=== PATIENT | female | born 1965 | race Caucasian/White ===

== ENCOUNTER → 2020-06-12 | Outpatient (CLI) | payer BC ==
--- NOTE | 2020-06-12 08:27 | CT ---
EXAMINATION TYPE: CT sinus wo con DATE OF EXAM: 06/12/2020 COMPARISON: None HISTORY: 54-year-old female GJ3 2.9, Chronic sinusitis CT DLP: 587.50 mGycm Automated exposure control for dose reduction was used. TECHNIQUE: Noncontrast axial views of the paranasal sinuses were obtained. Coronal reconstructions pe rformed. FINDINGS: PARANASAL SINUSES: Trace mucosal thickening anterior ethmoid air cells. Polyps or mucous retention cyst along the floors of the maxillary sinuses measuring up to 2.2 cm on t he right and 1.9 cm on the left. Frontal and sphenoid sinuses are well pneumatized. There is no air-fluid level. Reactive sravanthi- osteogenesis is not seen. There is no destruction of the osseous musa of the paranasal sinuses. THE NASAL CAVITY: The osteomeatal complexes are patent. Rightward nasal septal deviation. The imaged brain and orbits show no gross abnormality. The visualized mastoid air cells and middle ear cavities are well pneumatized. Reformatted images confirm above findings. IMPRESSION: 1. Polyps or mucosal retention cysts along the floors of the maxillary sinuses measuring up to 2.2 cm . 2. Trace mucosal thickening anterior ethmoid air cells. 3. Rightward nasal septal deviation.
== END | disposition home or self-care (01) ==
LOC: RADCTMAIN 07:00
PROVIDERS: ATTEND Otolaryngology
DX: J34.2 Deviated nasal septum (principal); J32.9 Chronic sinusitis, unspecified
CPT/HCPCS: 70486

== ENCOUNTER → 2020-07-25 | Outpatient (CLI) | payer BC ==
--- NOTE | 2020-07-26 08:28 | MM ---
Reason for exam: screening (asymptomatic). Last mammogram was performed 3 years and 8 months ago. History: Patient is postmenopausal. Pre-pectoral silicone gel implants in both breasts, 2004. Took hormonal contraceptives for 5 years. Took unspecified hormones for 10 years. Physical Findings: A clinical breast exam by your physician is recommended on an annual basis and results should be correlated with mammographic findings. MG 3D Screen Mammo Imp/Cad Bilateral CC, MLO, and ID view(s) were taken. Prior study comparison: November 14, 2016, mammogram, performed at [place]. Focal asymmetry right lower inner quadrant, new. Bilateral breast prothesis. This finding is changed when compared with previous exams. ASSESSMENT: Incomplete: need additional imaging evaluation, BI-RAD 0 RECOMMENDATION: Special view mammogram of the right breast. If lesion persists on supplemental views, image directed ultrasound is recommended. [facility] will attempt to contact patient to return for supplemental views and ultrasound if indicated.
== END | disposition home or self-care (01) ==
LOC: RADMAMWWP 07:03
PROVIDERS: ATTEND Family Medicine
DX: Z12.31 Encounter for screening mammogram for malignant neoplasm of breast (principal)
CPT/HCPCS: 77063; 77067

== ENCOUNTER → 2020-07-27 | Outpatient (CLI) | payer BC ==
--- NOTE | 2020-07-27 09:53 | MM ---
Reason for exam: additional evaluation requested from abnormal screening. Last mammogram was performed less than 1 month ago. History: Patient is postmenopausal. Pre-pectoral silicone gel implants in both breasts, 2004. Took hormonal contraceptives for 5 years. Took unspecified hormones for 10 years. Physical Findings: Nurse did not find any significant physical abnormalities on exam. MG 3D Work Up W/Cad W/Imp RT Spot compression CC, spot compression MLO, and LM view(s) were taken of the right breast. Prior study comparison: July 25, 2020, bilateral MG 3d screen mammo imp/cad. November 14, 2016, mammogram, performed at [facility]. Focal asymmetry right breast 5 o'clock 5cm from nipple measuring 6.4mm. These results were verbally communicated with the patient and result sheet given to the patient on 07/27/20. ASSESSMENT: Incomplete: need additional imaging evaluation, BI-RAD 0 RECOMMENDATION: Ultrasound of the right breast.
--- NOTE | 2020-07-27 09:56 | USB ---
Reason for exam: additional evaluation requested from abnormal screening. History: Patient is postmenopausal. Pre-pectoral silicone gel implants in both breasts, 2004. Took hormonal contraceptives for 5 years. Took unspecified hormones for 10 years. US Breast Workup Limited RT Right limited breast ultrasound including focal area of concern, retroareolar and axilla demonstrates a 7 x 3 x 6mm irregular, solid, hypoechoic lesion at 5 o'clock. These results were verbally communicated with the patient and result sheet given to the patient on 07/27/20. ASSESSMENT: Suspicious, BI-RAD 4 RECOMMENDATION: Ultrasound core biopsy of the right breast. Called Dr. Monroy's office with mammographic findings and has scheduled an appointment for the patient for 08/16/20 at 9:[address] Sims. Biopsy scheduled for 08/09/20 at 12:00. PRELIMINARY REPORT CALLED AND FAXED TO DR. SIMS ON 07/27/20.
== END | disposition home or self-care (01) ==
LOC: RADMAMWWP 06:53
PROVIDERS: ATTEND Family Medicine
DX: R92.8 Other abnormal and inconclusive findings on diagnostic imaging of breast (principal)
CPT/HCPCS: 77061; 77065

== ENCOUNTER → 2020-08-09 | Day surgery (SDC) | payer BC ==
[2020-08-09 12:16] VITALS: BP 138/79; PULSE 74; RESP 16; TEMP 97.6
--- NOTE | 2020-08-09 13:55 | USB ---
EXAMINATION TYPE: US discontinued breast core RT DATE OF EXAM: 08/09/2020 HISTORY: R92.8, ABN MAMM Comparison: Mammography 07/27/2020 and ultrasound from the same day Patient presented for ultrasound-guided core biopsy of the right breast however at real-time imaging the area of interest was poorly visualized and was directly adjacent to the patient's implant. The pa tient was then taken to the stereotactic core room to see if the lesion could be localized appropriat rip with the implant displaced. Appropriate lesion now visualization was noted and the implant was di splaced posteriorly. The patient will be rescheduled for stereotactic core biopsy of right breast den horacio. IMPRESSION: 1. Spacious BI-RADS 4 IMPRESSION: Stereotactic core biopsy of the right breast.
== END ==
LOC: RADUSWWP 12:01
PROVIDERS: ATTEND Student in an Organized Health Care Education/Training Program
DX: R92.8 Other abnormal and inconclusive findings on diagnostic imaging of breast (principal); Z53.8 Procedure and treatment not carried out for other reasons

== ENCOUNTER → 2020-09-04 | Day surgery (SDC) | payer BC ==
[2020-09-04 10:35] VITALS: BP 157/78; PULSE 55; RESP 18; TEMP 98.6
--- NOTE | 2020-09-04 17:05 | MM ---
EXAMINATION TYPE: MG stereo VAD BX RT DATE OF EXAM: 09/04/2020 COMPARISON: 07/25/2020 screening mammogram and diagnostic workup for 821 CLINICAL HISTORY: Nodule not well seen on ultrasound in the right breast TECHNIQUE: Stereotactic guided core biopsy of right breast. FINDINGS: The procedure of stereotactic guided core biopsy was explained to the patient. Benefits, alternatives, and risks were discussed. An informed consent was then obtained. [facility]. Shortness pathway was inferior approach. I performed the localization. A vacuum assisted biopsy gun was used to obtain multiple core samples of the nodule. The patient tolerated the procedure well without any immediate complication. The patient was kept in the radiology department for short stay after the procedure and then discharged home in stable condition. Post biopsy mammogram shows the clip to appear in satisfactory position relative to the targeted area of concern on the preprocedure images. IMPRESSION: SUCCESSFUL, UNCOMPLICATED STEREOTACTIC GUIDED CORE BIOPSY OF AREA OF CONCERN IN THE RIGHT BREAST, FULL PATHOLOGY RESULTS TO FOLLOW. 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 Recommendation Surgical consult of the right breast. BRETT
== END ==
LOC: RADMAMWWP 08:29
PROVIDERS: ATTEND Student in an Organized Health Care Education/Training Program
DX: D05.11 Intraductal carcinoma in situ of right breast (principal); Z17.0 Estrogen receptor positive status [ER+]; Z88.0 Allergy status to penicillin
CPT/HCPCS: 88305; 88342; 88341; 19081; A4648; J2001

== ENCOUNTER → 2020-09-04 | Outpatient (CLI) | payer BC ==
[2020-09-04 15:58] LABS: Basophils # (A) 0.13 X 10*3/uL (0.00-0.10); Basophils % (A) 1.4 %; Eosinophils # (A) 0.33 X 10*3/uL (0.04-0.35); Eosinophils % (A) 3.6 %; HCT 34.1 % (37.2-46.3); HGB 10.3 g/dL (12.0-15.0); Lymphocytes # (A) 3.12 X 10*3/uL (0.90-5.00); Lymphocytes % (A) 34.1 %; MCHC 30.2 g/dL (32.0-37.0); MCV 66.3 fL (80.0-97.0); Monocytes # (A) 0.99 X 10*3/uL (0.20-1.00); Monocytes % (A) 10.8 %; Neutrophils % (A) 49.2 %; Platelet Count 330 X 10*3/uL (140-440); RBC 5.14 X 10*6/uL (4.10-5.20); RDW 16.8 % (11.5-14.5); WBC 9.15 X 10*3/uL (4.50-10.00)
[2020-09-04 15:59] LABS: Microcytosis (M) 3+
[2020-09-04 16:13] LABS: African American GFR (CKD) 112.3 (60.0-200.0); Albumin 4.2 g/dL (3.80-4.90); Albumin/Globulin Ratio 1.5 (1.60-3.17); Anion Gap 7.7 mmol/L (4.00-12.00); BUN/Creat Ratio 15.71 Ratio (12.00-20.00); Calcium 9.2 mg/dL (8.7-10.3); Carbon Dioxide 25.3 mmol/L (21.6-31.8); Chol/HDL Ratio 3.61; Globulin 2.8 g/dL (1.6-3.3); LDL Cholesterol,Calculated 48.4 mg/dL (0.0-131.0); Non-African American GFR(CKD) 96.9 (60.0-200.0); Potassium 4.3 mmol/L (3.5-5.5); Total Bilirubin 0.6 mg/dL (0.2-1.2); Uric Acid 4.6 mg/dL (2.9-7.7); VLDL Calculation 37.6 mg/dL (5.00-40.00)
[2020-09-04 17:36] LABS: Hemoglobin A1C 8.3 % (4.0-6.0)
[2020-09-04 20:12] LABS: Urine Creatinine 112.9 mg/dL
== END | disposition home or self-care (01) ==
LOC: LABWHC1 08:28
PROVIDERS: ATTEND Family Medicine
DX: E11.9 Type 2 diabetes mellitus without complications (principal); D56.9 Thalassemia, unspecified; M10.9 Gout, unspecified
CPT/HCPCS: 36415; 80053; 80061; 82043; 82570; 83021; 83036; 84443; 84550; 85025

== ENCOUNTER → 2020-09-15 | Outpatient (CLI) | payer BC | END | disposition home or self-care (01) | LOC: LABWHC1 07:33 | PROVIDERS: ATTEND Student in an Organized Health Care Education/Training Program | DX: Z20.822 Contact with and (suspected) exposure to COVID-19 (principal) | CPT/HCPCS: U0003; C9803; U0005 ==

== ENCOUNTER 2020-09-19 10:48 | Day surgery (SDC) | payer BC ==
[2020-09-14 15:09] VITALS: BMI 30.7
[~2020-09-19 10:48] MED LIST: DEXAMETHASONE SOD PHOSPHATE 4 MG/ML 1 ML VIAL IV ONE; LACTATED RINGERS 1,000 ML IV SCH; LIDOCAINE 1% (10MG/ML) FOR IV START INTRADERMA PRN; MIDAZOLAM 2 MG/2 ML VIAL IV PRN; ONDANSETRON 4 MG/2 ML VIAL IVP ONE
[2020-09-19] MEDS ORDERED: ALPRAZolam 0.5 MG TAB ONE (11:41)
[2020-09-19] MEDS ORDERED: HEPARIN SODIUM,PORCINE/PF 5,000 UNIT/0.5 ML SYRINGE SQ ONE (11:42)
[2020-09-19] MEDS ORDERED: ONDANSETRON 4 MG/2 ML VIAL ONE (11:43)
[2020-09-19] MEDS ORDERED: ALPRAZolam 0.5 MG TAB PO ONE (11:44)
[2020-09-19] MEDS ORDERED: LIDOCAINE 1% INJ 10MG/ML (20 ML MDV) SQ ONE (12:37)
[2020-09-19 13:32] LABS: Glucose,Whole Blood 138 mg/dL (75-99)
--- NOTE | 2020-09-19 13:59 | NM ---
EXAMINATION TYPE: NM sentinel node injection DATE OF EXAM: 09/19/2020 COMPARISON: NONE HISTORY: [place] lymph node injection presurgical TECHNIQUE AND FINDINGS: The procedure of sentinel lymph node injection was explained to the patient. The benefits, alternatives, and risks were discussed. An informed consent was then obtained. Overlying skin is cleaned with sterile alcohol. Following this, 478 uCi Tc99m Tilmanocept was inject ed in the upper outer aspect of the right nipple intradermally. The patient tolerated the procedure well without any immediate complication. The patient was kept in the radiology department for short stay after the procedure and then taken to surgery for surgical p rocedure what is presumed intraoperative gamma probe will be used for sentinel lymph node detection. IMPRESSION: Right breast radiotracer injection for sentinel node localization as above.
[2020-09-19] MEDS ORDERED: SUCCINYLCHOLINE CHLORIDE 100 MG/5 ML SYR IV ONE (14:20)
[2020-09-19] MEDS ORDERED: PROPOFOL 10 MG/ML 20 ML VIAL IV ONE (14:20)
[2020-09-19] MEDS ORDERED: GLYCOPYRROLATE 0.2 MG/ML 2 ML VIAL ONE (14:20)
[2020-09-19] MEDS ORDERED: LIDOCAINE 1% INJ 10MG/ML (20 ML MDV) ONE (14:20)
[2020-09-19] MEDS ORDERED: fentaNYL (PF) 50 MCG/ML 2 ML AMP ONE (14:20)
[2020-09-19] MEDS ORDERED: MIDAZOLAM 2 MG/2 ML VIAL ONE (14:20)
[2020-09-19] MEDS ORDERED: SODIUM CHLORIDE 0.9% 100 ML with CLINDAMYCIN 600 MG IV ONE ×2 (14:43)
[2020-09-19] MEDS ORDERED: BUPIVACAINE (PF) 0.25% 30 ML VIAL SQ ONE ×2 (14:47)
[2020-09-19] MEDS ORDERED: LIDOCAINE 1%-EPI 1:100,000 20 ML VIAL SQ ONE ×2 (14:47)
--- NOTE | 2020-09-19 16:21 | P.OP ---
Date of Procedure: 09/19/20 Preoperative Diagnosis: Breast cancer Postoperative Diagnosis: Breast cancer Procedure(s) Performed: Right breast needle localized lumpectomy with sentinel lymph node biopsy Anesthesia: ANTWAN Surgeon: Duncan Lee Estimated Blood Loss (ml): 5 Condition: stable Disposition: PACU Description of Procedure: Patient was brought to the operative suite remained in the supine position underwent general endotracheal anesthesia per Department of anesthesia previous to that procedure patient had needle localization of her right breast cancer. She also had radiotracer injected. Methylene blue diluted with saline was injected subareolar and massaged in. Timeout was performed correct patient correct procedure correct site was verified. Attention was turned to the right axilla along the hairline a 4 cm incision was made carried down there was neither blue nor radioactive tracer active lymph tissue noted and there was significant scar tissue likely secondary to previous approach for the breast implant the patient had. Several sentinel lymph nodes were palpated and excised 1 of which was noted to have faint radiotracer activity. These were sent to pathology. Attention was turned to the right breast where a 4 cm incision was made directly over the wire carried down around the specimen which was excised mesentery and sent to mammography which confirmed the wire and clip to be in the middle of the specimen. Hemostasis was achieved and the wounds were closed with 30 subdermal Vicryl followed by 4-0 running subcuticular Monocryl suture sterile dressing was applied patient tolerated procedure well no apparent complications Plan - Discharge Summary Discharge Rx Participant: Yes New Discharge Prescriptions: No Action Allopurinol [Zyloprim] 300 mg PO DAILY Atorvastatin [Lipitor] 10 mg PO QAM lisinopriL [Zestril] 5 mg PO QAM Aspirin [Adult Low Dose Aspirin EC] 81 mg PO DAILY Discharge Medication List Allopurinol [Zyloprim] 300 mg PO DAILY 08/03/20 [History] Aspirin [Adult Low Dose Aspirin EC] 81 mg PO DAILY 08/03/20 [History] Atorvastatin [Lipitor] 10 mg PO QAM 08/03/20 [History] lisinopriL [Zestril] 5 mg PO QAM 08/03/20 [History]
[2020-09-19 16:31] VITALS: TEMP 96.8
[2020-09-19] MEDS: HYDROmorphone 0.5 MG/0.5 ML SYRINGE IVP PRN ×2 (16:45→16:53)
--- NOTE | 2020-09-19 17:03 | MM ---
FINDINGS: Right breast specimen radiograph demonstrates the biopsy marker clip to be present eccentrically within the specimen <immediately adjacent> to the localization needle. IMPRESSION: Localization needle and biopsy marker clip present within the specimen radiograph with the needle appearing intact. Pathology Results: Malignant A. RIGHT BREAST, LUMPECTOMY: Invasive high grade ductal carcinoma with adjacent high grade DCIS with comedonecrosis (See Surgical Pathology Cancer Case Summary and Comment). Largest focus of invasive carcinoma measures 4 mm in greatest microscopic dimension. All margins negative for DCIS and invasive carcinoma. Closest margin to invasive carcinoma: 2.2 mm from red margin (see comment). Closest margin to DCIS: close to and less than 1 mm from red margin. B. RIGHT SENTINEL LYMPH NODES #1, EXCISION: Three sentinel lymph nodes, all negative for metastatic carcinoma. CK7 and MARY stains with appropriate controls on blocks B1-B5, all negative for metastatic carcinoma. C. RIGHT SENTINEL LYMPH NODE #2, EXCISION: One sentinel lymph node, negative for metastatic carcinoma. CK7 and MARY stains with appropriate controls negative for metastatic carcinoma on block C. D. RIGHT SENTINEL LYMPH NODE #3, EXCISION: One sentinel lymph node, negative for metastatic carcinoma. CK7 and MARY stains with appropriate controls on specimen D negative for metastatic carcinoma. E. RIGHT SENTINEL LYMPH NODE #4, EXCISION: One sentinel lymph node, negative for metastatic carcinoma. CK7 and MARY stains with appropriate controls on specimen E negative for metastatic carcinoma. F. RIGHT SENTINEL LYMPH NODE #5, EXCISION: One sentinel lymph node, negative for metastatic carcinoma. CK7 and MARY stains with appropriate controls on specimen F negative for metastatic carcinoma. G. RIGHT SENTINEL LYMPH NODE #6, EXCISION: Two sentinel lymph nodes, each negative for metastatic carcinoma. CK7 and MARY stains on blocks G1-G3 all negative for metastatic carcinoma. Recommendation Appropriate oncologic managment. MTDD
--- NOTE | 2020-09-19 17:06 | MM ---
PEXAMINATION TYPE: MG pre op needle loc RT DATE OF EXAM: 09/19/2020 COMPARISON: 07/27/2020 09/04/2020 CLINICAL HISTORY: Invasive ductal carcinoma with DCIS right breast TECHNIQUE: Needle localization with wire placement and surgical excision of area of concern in the right breast. FINDINGS: The procedure of needle localization with wire placement and than surgical excision was explained to the patient. Benefits, alternatives, and risks were discussed. An informed consent was then obtained. The shortest pathway for procedure was chosen for right breast localization. Shortest pathway was inferior approach . The overlying skin was prepped and draped in usual sterile fashion. Lidocaine buffered with bicarbonate was used as anesthetic into the skin and subcutaneous tissue up to the level of area of concern. A 5 cm needle was used. It was placed via a inferior approach under mammographic guidance. Subsequent 90 degrees mammogram show the needle to be in satisfactory position relative to the targeted area. At this point, wire was placed and the needle was withdrawn. The wire was fixed to patient's skin. Images were marked for surgeon. The patient tolerated the procedure well without any immediate complication. The patient was kept in the radiology department for short stay after the procedure and then taken to surgery for surgical excision. Wire localization device with biopsy marker clip are identified in specimen mammogram. The patient was kept in hospital for short stay after the procedure and then discharged home in stable condition. IMPRESSION: Successful, uncomplicated needle localization with wire placement and surgical excision of biopsy marker clip in the right breast. Full pathology results to follow. Pathology Results: Malignant A. RIGHT BREAST, LUMPECTOMY: Invasive high grade ductal carcinoma with adjacent high grade DCIS with comedonecrosis (See Surgical Pathology Cancer Case Summary and Comment). Largest focus of invasive carcinoma measures 4 mm in greatest microscopic dimension. All margins negative for DCIS and invasive carcinoma. Closest margin to invasive carcinoma: 2.2 mm from red margin (see comment). Closest margin to DCIS: close to and less than 1 mm from red margin. B. RIGHT SENTINEL LYMPH NODES #1, EXCISION: Three sentinel lymph nodes, all negative for metastatic carcinoma. CK7 and MARY stains with appropriate controls on blocks B1-B5, all negative for metastatic carcinoma. C. RIGHT SENTINEL LYMPH NODE #2, EXCISION: One sentinel lymph node, negative for metastatic carcinoma. CK7 and MARY stains with appropriate controls negative for metastatic carcinoma on block C. D. RIGHT SENTINEL LYMPH NODE #3, EXCISION: One sentinel lymph node, negative for metastatic carcinoma. CK7 and MARY stains with appropriate controls on specimen D negative for metastatic carcinoma. E. RIGHT SENTINEL LYMPH NODE #4, EXCISION: One sentinel lymph node, negative for metastatic carcinoma. CK7 and MARY stains with appropriate controls on specimen E negative for metastatic carcinoma. F. RIGHT SENTINEL LYMPH NODE #5, EXCISION: One sentinel lymph node, negative for metastatic carcinoma. CK7 and MARY stains with appropriate controls on specimen F negative for metastatic carcinoma. G. RIGHT SENTINEL LYMPH NODE #6, EXCISION: Two sentinel lymph nodes, each negative for metastatic carcinoma. CK7 and MARY stains on blocks G1-G3 all negative for metastatic carcinoma. Recommendation Appropriate oncologic management. MTDD
[2020-09-19 17:38] VITALS: RESP 16
[2020-09-19] MEDS ORDERED: HYDROcodone/APAP 5-325MG 1 EACH TAB ONE (17:44)
[2020-09-19] MEDS ORDERED: HYDROcodone/APAP 5-325MG 1 EACH TAB PO ONE ×2 (17:48)
[2020-09-19 18:19] VITALS: BP 130/79; PULSE 69
== END 2020-09-19 18:32 | disposition home or self-care (01) ==
LOC: OR 10:48
PROVIDERS: ATTEND Student in an Organized Health Care Education/Training Program
DX: C50.911 Malignant neoplasm of unspecified site of right female breast (principal); D64.9 Anemia, unspecified; E11.9 Type 2 diabetes mellitus without complications; E78.00 Pure hypercholesterolemia, unspecified; M10.9 Gout, unspecified; Z86.718 Personal history of other venous thrombosis and embolism; Z80.3 Family history of malignant neoplasm of breast; Z79.82 Long term (current) use of aspirin; Z98.84 Bariatric surgery status; Z17.0 Estrogen receptor positive status [ER+]; Z79.899 Other long term (current) drug therapy
CPT/HCPCS: 19301; 38500; 88342; 88307; 88341; 76098; 19281; 38792; A9520; J2250; J1100; J2405; J2001; J3010; J0330; J2704; J1170; J1644

== ENCOUNTER → 2020-10-12 | Outpatient (CLI) | payer BC ==
--- NOTE | 2020-10-12 12:57 | ECHOF ---
Referral Reason:Z01.818 Pre Chemo MEASUREMENTS -------- HEIGHT: 167.6 cm WEIGHT: 86.2 kg BP: RVIDd: 2.8 cm (< 3.3) IVSd: 1.6 cm (0.6 - 1.1) LVIDd: 3.3 cm (3.9 - 5.3) LVPWd: 1.6 cm (0.6 - 1.1) IVSs: 2.0 cm LVIDs: 2.4 cm LVPWs: 1.8 cm LAESV Index (A-L): 20.82 ml/m Ao Diam: 3.2 cm (2.0 - 3.7) AV Cusp: 2.1 cm (1.5 - 2.6) LA Diam: 3.8 cm (2.7 - 3.8) MV EXCURSION: 16.721 mm (> 18.000) MV EF SLOPE: 54 mm/s (70 - 150) EPSS: 0.6 cm MV E Judah: 0.70 m/s MV DecT: 213 ms MV A Judah: 1.01 m/s MV E/A Ratio: 0.69 AR PHT: 358 ms RAP: 5.00 mmHg RVSP: 28.03 mmHg FINDINGS -------- This was a technically good study. The left ventricular size is normal. There is moderate concentric left ventricular hypertrophy. O verall left ventricular systolic function is normal with, an EF between 55 - 60 %. The diastolic fi lling pattern is normal for the age of the patient 13.78. The right ventricle is normal in size. The left atrial size is normal. Normal LA size by volume 22+/-6 ml/m2. The right atrial size is normal. The aortic valve is trileaflet and appears structurally normal. The mitral valve is normal. There is trace mitral regurgitation. The tricuspid valve appears structurally normal. Trace tricuspid regurgitation present. Right rowan tricular systolic pressure is normal at < 35 mmHg. There is no pulmonic regurgitation present. The aortic root size is normal. Normal inferior vena cava with normal inspiratory collapse consistent with estimated right atrial pre ssure of 5 mmHg. There is no pericardial effusion. Large Pleural Effusion. CONCLUSIONS -------- 1. The left ventricular size is normal. 2. There is moderate concentric left ventricular hypertrophy. 3. Overall left ventricular systolic function is normal with, an EF between 55 - 60 %. 4. The diastolic filling pattern is normal for the age of the patient 13.78 5. There is trace mitral regurgitation. 6. Trace tricuspid regurgitation present. 7. There is no pericardial effusion. 8. Large Pleural Effusion. ELECTRONIC FUNDS TRANSFER COORDINATOR: Padmaja Burnham RDCS
== END | disposition home or self-care (01) ==
LOC: RADECHMAIN 11:19
PROVIDERS: ATTEND Internal Medicine Hematology & Oncology
DX: I08.1 Rheumatic disorders of both mitral and tricuspid valves (principal); J90 Pleural effusion, not elsewhere classified
CPT/HCPCS: 93306

== ENCOUNTER → 2020-10-27 | Outpatient (CLI) | payer BC ==
--- NOTE | 2020-10-30 09:36 | USB ---
Reason for exam: clinical finding. History: Patient is postmenopausal and has history of breast cancer at age 55. Malignant MG pre op needle loc RT of the right breast, September 19, 2020. Lumpectomy of the right breast, September 19, 2020. Malignant MG stereo VAD BX RT of the right breast, September 04, 2020. US discontinued breast core RT of the right breast, August 09, 2020. Pre-pectoral silicone gel implants in both breasts, 2003. Took hormonal contraceptives for 5 years. Took unspecified hormones for 10 years. Physical Findings: Nurse did not find any significant physical abnormalities on exam. US Breast BILAT Right complete breast ultrasound includes all four quadrants, the retroareolar region and axilla. Finding demonstrates a 3 x 0.6 x 2.1cm cystic lesion at 5 o'clock post surgical scar, a 1.6 x 1.6 x 4.2cm hypoechoic lesion at axilla post surgical scar and a 0.2 x 0.2 x 0.2cm irregular lesion too small to characterize at 12 o'clock, probably fat necrosis. 6 month follow up recommended. Left complete breast ultrasound includes all four quadrants, the retroareolar region and axilla. Finding demonstrates a 0.8 x 0.5cm hypoechoic lesion at 10 o'clock, suspicious, left ultrasound guided biopsy recommended. These results were verbally communicated with the patient and result sheet given to the patient on 10/27/20. ASSESSMENT: Suspicious, BI-RAD 4 RECOMMENDATION: Ultrasound core biopsy of the left breast. Called office with mammographic findings and has scheduled an appointment for the patient with Dr. Sims. Biopsy scheduled for 11/15/20 at 8:00. PRELIMINARY REPORT CALLED AND FAXED TO DR. SIMS ON 10/30/20. Follow-up diagnostic mammogram and ultrasound of the right breast in 6 months.
== END | disposition home or self-care (01) ==
LOC: RADUSWWP 12:51
PROVIDERS: ATTEND Internal Medicine
DX: N60.01 Solitary cyst of right breast (principal); N64.89 Other specified disorders of breast; Z78.0 Asymptomatic menopausal state; Z85.3 Personal history of malignant neoplasm of breast; Z79.3 Long term (current) use of hormonal contraceptives

== ENCOUNTER → 2020-11-02 | Outpatient (CLI) | payer BC ==
--- NOTE | 2020-11-02 14:31 | XR ---
EXAMINATION TYPE: XR chest 2V DATE OF EXAM: 11/02/2020 CLINICAL HISTORY: C50.311, Z17.0, I82.5Z9. TECHNIQUE: Frontal and lateral view of the chest. COMPARISON: None FINDINGS: The cardiomediastinal silhouette is within normal limits for size. Pulmonary vasculature i s normal. There is an approximately 10 to 15 mm nodular density of the left lower lobe infrahilar reg ion. There is no focal air space opacity. No pleural effusion. No pneumothorax seen. No acute displa daiana osseous fracture. Suture material or postsurgical change attendant the midline anterior upper abdomen. IMPRESSION: 1. No pleural effusion. 2. 10 to 15 mm nodular density over the left lower lobe infrahilar region. Differential includes pul monary nodule versus granuloma. CT chest with contrast is recommended for further characterization.
== END | disposition home or self-care (01) ==
LOC: LABWHC1 12:42
PROVIDERS: ATTEND Internal Medicine Hematology & Oncology
DX: C50.311 Malignant neoplasm of lower-inner quadrant of right female breast (principal); I82.5Z9 Chronic embolism and thrombosis of unspecified deep veins of unspecified distal lower extremity; E11.9 Type 2 diabetes mellitus without complications; J98.4 Other disorders of lung; R91.1 Solitary pulmonary nodule; Z17.0 Estrogen receptor positive status [ER+]
CPT/HCPCS: 71046

== ENCOUNTER → 2020-11-09 | Day surgery (SDC) | payer BC ==
[2020-11-09 12:35] VITALS: BP 115/79; PULSE 51; RESP 16; TEMP 98.4
--- NOTE | 2020-11-09 14:02 | USB ---
Ultrasound left breast INDICATION: Biopsy requested for previous left breast lesion COMPARISON: October 27, 2020 Left breast was scanned from 9-12 o'clock. FINDINGS: The previously identified lesion within the left breast at 10:00 is not reproduced on this examinatio n. Biopsy could not be performed. IMPRESSION: 1. The previously identified lesion within the left breast at 5:00 is not reproduced on this examinat ion. Follow-up left breast biopsy is recommended in 6 months 2. Follow-up right breast ultrasound is recommended in 6 months for findings on previous ultrasound. BI-RADS 3, probably benign.
== END ==
LOC: RADUSWWP 11:38
PROVIDERS: ATTEND Student in an Organized Health Care Education/Training Program
DX: R92.8 Other abnormal and inconclusive findings on diagnostic imaging of breast (principal)

== ENCOUNTER → 2020-11-10 | Outpatient (CLI) | payer BC ==
--- NOTE | 2020-11-16 15:14 | PE ---
EXAMINATION TYPE: PET CT fusion skull to thigh DATE OF EXAM: 11/12/2020 COMPARISON: None Prior PET/CT: None HISTORY: Breast cancer TECHNIQUE: Following the intravenous administration of 11.86 mCi of F-18 FDG, whole body images are performed from the skull base to the midthigh. Images are reviewed on the computer in the coronal, a xial, and sagittal planes. Reconstructed rotating images are created on independent workstation and reviewed on the computer. A localization and attenuation correction CT is performed in conjunction with the PET scan. DLP: 447.56 mGycm SCAN: Initial Blood glucose: 125 mg/dL Average Mediastinum SUV: 1.3 Average Liver SUV: 2.31 FINDINGS: NECK: No abnormal uptake THORAX: No abnormal uptake ABDOMEN: No abnormal uptake. There are multiple areas of short segments of bowel activity which can b e normal. This may make it difficult identification of any short focal neoplasm within the colon or s mall bowel loop. PELVIS: No abnormal uptake OSSEOUS STRUCTURES: No abnormal uptake LOCALIZATION CT: Bilateral breast prostheses are present. No suspicious axillary adenopathy is eviden t. Postsurgical changes are noted on the right. COMPARISON: None IMPRESSION: 1. No suspicious uptake to suggest metastatic disease.
== END | disposition home or self-care (01) ==
LOC: RADPETMAIN 14:46
PROVIDERS: ATTEND Internal Medicine Hematology & Oncology
DX: C50.919 Malignant neoplasm of unspecified site of unspecified female breast (principal)
CPT/HCPCS: 78815; A9552

== ENCOUNTER 2020-12-20 11:03 | Emergency (ER) | payer BC ==
[2020-12-20 11:16] VITALS: RESP 18; TEMP 97.7
[2020-12-20] MEDS ORDERED: SODIUM CHLORIDE 0.9% 500 ML 500 ML IV STA (12:04)
[2020-12-20] MEDS ORDERED: KETOROLAC 15 MG/ML 1 ML VIAL IVP STA (12:04)
[2020-12-20 12:21] LABS: Anisocytosis Slight; Basophils # (A) 0.1 k/uL (0-0.2); Basophils % (A) 1 %; Eosinophils # (A) 0.5 k/uL (0-0.7); Eosinophils % (A) 8 %; HCT 29.4 % (34.0-46.0); HGB 9.6 gm/dL (11.4-16.0); Hypochromasia Slight; Lymphocytes # (A) 2.1 k/uL (1.0-4.8); Lymphocytes % (A) 36 %; MCH 21.5 pg (25.0-35.0); MCHC 32.7 g/dL (31.0-37.0); MCV 65.7 fL (80.0-100.0); Mean Platelet Volume 8.8; Microcytosis Marked; Monocytes # (A) 0.2 k/uL (0-1.0); Monocytes % (A) 4 %; Neutrophils # (A) 2.8 k/uL (1.3-7.7); Neutrophils % (A) 48 %; Platelet Count 330 k/uL (150-450); Poikilocytosis Slight; RBC 4.47 m/uL (3.80-5.40); RDW 16.8 % (11.5-15.5); WBC 5.9 k/uL (3.8-10.6)
--- NOTE | 2020-12-20 12:24 | ED ---
General Adult HPI - General Chief complaint: Vaginal Bleeding Stated complaint: vaginal bleeding Time Seen by Provider: 12/20/20 11:19 Source: patient Mode of arrival: ambulatory Limitations: no limitations - History of Present Illness Initial comments: Patient is a 55-year-old female, currently undergoing chemotherapy for right- sided breast cancer, presenting to the emergency Department with complaints of vaginal bleeding that started 4 days ago as well as about a week of right sided lower back pain. She states she has not had a menstrual cycle over 6 years this is really unusual for her. She does have some mild pressure in the suprapubic region but no other abdominal pain. She states the last 2 days her pain in the right low back has been intense, rated at 9/10, does cause some nausea. Currently her pain is a 7/10. She denies any falls or trauma, no previous history of back pain. Eyes any chest pain or short of breath, no recent fevers or chills. She states her appetite has been up and down but that is normal given her chemo. Her last chemo treatment was last week. He denies history of kidney stones however states it runs in her family. She is not 100% certain if the bleeding is coming vaginal or urethral. She denies any rectal bleeding. She is not on blood thinners. She has no further complaints at this time. Her vital signs are stable upon arrival. - Related Data Home Medications Medication Instructions Recorded Confirmed Allopurinol [Zyloprim] 300 mg PO DAILY 08/03/20 12/20/20 Aspirin [Adult Low Dose Aspirin EC] 81 mg PO DAILY 08/03/20 12/20/20 Atorvastatin [Lipitor] 10 mg PO DAILY 08/03/20 12/20/20 Cholecalciferol [Vitamin D3 (25 25 mcg PO DAILY 12/20/20 12/20/20 Mcg = 1000 Iu)] Cyanocobalamin (Vitamin B-12) 1,000 mcg PO DAILY 12/20/20 12/20/20 [Vitamin B-12] Ondansetron [Zofran ODT] 4 mg PO Q6H PRN 12/20/20 12/20/20 Temazepam [Restoril] 15 mg PO HS PRN 12/20/20 12/20/20 lisinopriL [Zestril] 2.5 mg PO DAILY 12/20/20 12/20/20 metFORMIN HCL ER [Glucophage XR] 500 mg PO BID 12/20/20 12/20/20 Previous Rx's Medication Instructions Recorded Ketorolac [Toradol] 10 mg PO Q8HR #10 tab 12/20/20 Allergies Allergy/AdvReac Type Severity Reaction Status Date / Time Penicillins Allergy Rash/Hives Verified 12/20/20 12:20 Review of Systems ROS Statement: Those systems with pertinent positive or pertinent negative responses have been documented in the HPI. ROS Other: All systems not noted in ROS Statement are negative. Past Medical History Past Medical History: Cancer, Deep Vein Thrombosis (DVT), Hyperlipidemia, Hypertension Additional Past Medical History / Comment(s): right breast cancer- currently on chemo last tx 12/15/20 History of Any Multi-Drug Resistant Organisms: None Reported Past Surgical History: Bariatric Surgery, Breast Surgery Additional Past Surgical History / Comment(s): Sinus surgery, breast implants, Gastric Bypass 2003, right breast lumpectomy September 2020 Past Anesthesia/Blood Transfusion Reactions: No Reported Reaction Past Psychological History: No Psychological Hx Reported Smoking Status: Former smoker Past Alcohol Use History: None Reported Past Drug Use History: None Reported - Past Family History Mother Family Medical History: No Reported History General Exam - General Exam Comments Initial Comments: GENERAL: Patient is well-developed and well-nourished. Patient is nontoxic and in no acute distress. HEAD: Atraumatic, normocephalic. EYES: Pupils equal round and reactive to light, extraocular movements intact, sclera a nicteric, conjunctiva are normal. Eyelids were unremarkable. ENT: TMs normal, nares patent, oropharynx clear without exudates. Moist mucous membranes. NECK: Normal range of motion, supple without lymphadenopathy or JVD. LUNGS: Unlabored respirations. Breath sounds clear to auscultation bilaterally and equal. No wheezes rales or rhonchi. HEART: Regular rate and rhythm without murmurs, rubs or gallops. ABDOMEN: Soft, nontender, normoactive bowel sounds. No guarding, no rebound. No masses appreciated. MUSCULOSKELETAL: Normal extremities with adequate strength and normal range of motion, no pitting or edema. No clubbing or cyanosis. No back pain on palpation. NEUROLOGICAL: Patient is alert and oriented x 3. Normal speech, normal gait. PSYCH: Normal mood, normal affect. SKIN: Warm, Dry, normal turgor, no rashes or lesions noted. Limitations: no limitations Rectal exam: Present: normal inspection, other (no bleeding) External exam: Present: normal external exam Speculum exam: Present: normal speculum exam. Absent: vaginal discharge, vaginal bleeding Course Vital Signs 12/20/20 12/20/20 12/20/20 11:13 12:17 13:00 Temperature 97.7 F Pulse Rate 103 H 65 58 L Respiratory 18 18 18 Rate Blood Pressure 104/65 113/69 94/84 O2 Sat by Pulse 99 96 97 Oximetry 12/20/20 12/20/20 12/20/20 14:00 15:00 15:30 Temperature 97.7 F Pulse Rate 64 64 66 Respiratory 18 18 18 Rate Blood Pressure 100/64 98/60 O2 Sat by Pulse 97 97 97 Oximetry Medical Decision Making - Medical Decision Making Patient is a 55-year-old female, currently undergoing treatment for right-sided breast cancer, last chemo treatment was last week, presenting for 3-4 days of vaginal bleeding. She is also have been having some right-sided lower back pain as well. No fevers, no chest pain or short of breath. Her vital signs are stable upon arrival. No abdominal or lumbar pain on palpation, no flank pain. Labs show a normal white count, stable hemoglobin at 9.6, her last hemoglobin was done a few days ago was 9.81. Glucose is slightly elevated at 218, she does have history of diabetes, takes metformin. Lactic acid was up at 2.5, urine shows no evidence of infection or blood, 3+ glucose. On pelvic exam, she has no active vaginal bleeding, no blood in the vault, no bleeding from the urethra or no rectal bleeding. I did order a vaginal ultrasound, there is a small hematogeneous appearance to the endometrium at the lower uterine segment, consider ASSOCIATE SPA DIRECTOR consult. No other abnormalities seen. I did discuss these findings with the patient. Patient was given fluids, Toradol and has been pain free here in the ER. I did recommend following up with her oncologist/ASSOCIATE SPA DIRECTOR, she is agreeable to this. She is stable for discharge. Return parameters were discussed with her and she verbalized understanding. Case discussed with Dr. Millard. - Lab Data Result diagrams: 12/20/20 12:11 12/20/20 12:11 Lab Results 12/20/20 12/20/20 12/20/20 Range/Units 12:11 12:11 12:11 WBC 5.9 (3.8-10.6) k/uL RBC 4.47 (3.80-5.40) m/uL Hgb 9.6 L (11.4-16.0) gm/dL Hct 29.4 L (34.0-46.0) % MCV 65.7 L (80.0-100.0) fL MCH 21.5 L (25.0-35.0) pg MCHC 32.7 (31.0-37.0) g/dL RDW 16.8 H (11.5-15.5) % Plt Count 330 (150-450) k/uL MPV 8.8 Neutrophils % 48 % Lymphocytes % 36 % Monocytes % 4 % Eosinophils % 8 % Basophils % 1 % Neutrophils # 2.8 (1.3-7.7) k/uL Lymphocytes # 2.1 (1.0-4.8) k/uL Monocytes # 0.2 (0-1.0) k/uL Eosinophils # 0.5 (0-0.7) k/uL Basophils # 0.1 (0-0.2) k/uL Hypochromasia Slight Poikilocytosis Slight Anisocytosis Slight Microcytosis Marked Sodium 134 L (137-145) mmol/L Potassium 4.0 (3.5-5.1) mmol/L Chloride 104 (98-107) mmol/L Carbon Dioxide 22 (22-30) mmol/L Anion Gap 8 mmol/L BUN 11 (7-17) mg/dL Creatinine 0.59 (0.52-1.04) mg/dL Est GFR (CKD-EPI)AfAm >90 (>60 ml/min/1.73 sqM) Est GFR (CKD-EPI)NonAf >90 (>60 ml/min/1.73 sqM) Glucose 218 H (74-99) mg/dL Lactic Ac Sepsis Rflx Plasma Lactic Acid Guerrero (0.7-2.0) mmol/L Calcium 9.0 (8.4-10.2) mg/dL Magnesium 1.7 (1.6-2.3) mg/dL Total Bilirubin 0.4 (0.2-1.3) mg/dL AST 43 H (14-36) U/L ALT 53 H (4-34) U/L Alkaline Phosphatase 71 (38-126) U/L Total Protein 6.2 L (6.3-8.2) g/dL Albumin 3.6 (3.5-5.0) g/dL Urine Color Yellow Urine Appearance Clear (Clear) Urine pH 5.0 (5.0-8.0) Ur Specific Lititz 1.010 (1.001-1.035) Urine Protein Negative (Negative) Urine Glucose (UA) 3+ H (Negative) Urine Ketones Negative (Negative) Urine Blood Negative (Negative) Urine Nitrite Negative (Negative) Urine Bilirubin Negative (Negative) Urine Urobilinogen <2.0 (<2.0) mg/dL Ur Leukocyte Esterase Negative (Negative) 12/20/20 12/20/20 Range/Units 12:11 12:52 WBC (3.8-10.6) k/uL RBC (3.80-5.40) m/uL Hgb (11.4-16.0) gm/dL Hct (34.0-46.0) % MCV (80.0-100.0) fL MCH (25.0-35.0) pg MCHC (31.0-37.0) g/dL RDW (11.5-15.5) % Plt Count (150-450) k/uL MPV Neutrophils % % Lymphocytes % % Monocytes % % Eosinophils % % Basophils % % Neutrophils # (1.3-7.7) k/uL Lymphocytes # (1.0-4.8) k/uL Monocytes # (0-1.0) k/uL Eosinophils # (0-0.7) k/uL Basophils # (0-0.2) k/uL Hypochromasia Poikilocytosis Anisocytosis Microcytosis Sodium (137-145) mmol/L Potassium (3.5-5.1) mmol/L Chloride (98-107) mmol/L Carbon Dioxide (22-30) mmol/L Anion Gap mmol/L BUN (7-17) mg/dL Creatinine (0.52-1.04) mg/dL Est GFR (CKD-EPI)AfAm (>60 ml/min/1.73 sqM) Est GFR (CKD-EPI)NonAf (>60 ml/min/1.73 sqM) Glucose (74-99) mg/dL Lactic Ac Sepsis Rflx Y Plasma Lactic Acid Guerrero 2.5 H* (0.7-2.0) mmol/L Calcium (8.4-10.2) mg/dL Magnesium (1.6-2.3) mg/dL Total Bilirubin (0.2-1.3) mg/dL AST (14-36) U/L ALT (4-34) U/L Alkaline Phosphatase (38-126) U/L Total Protein (6.3-8.2) g/dL Albumin (3.5-5.0) g/dL Urine Color Urine Appearance (Clear) Urine pH (5.0-8.0) Ur Specific Lititz (1.001-1.035) Urine Protein (Negative) Urine Glucose (UA) (Negative) Urine Ketones (Negative) Urine Blood (Negative) Urine Nitrite (Negative) Urine Bilirubin (Negative) Urine Urobilinogen (<2.0) mg/dL Ur Leukocyte Esterase (Negative) Disposition Clinical Impression: Dysfunctional uterine bleeding, Right lumbar pain Disposition: HOME SELF-CARE Condition: Stable Instructions (If sedation given, give patient instructions): Dysfunctional Uterine Bleeding (ED) Additional Instructions: Please return to the Emergency Department if symptoms worsen or any other concerns. May take ibuprofen for any further discomfort. Please follow-up with your oncologist/ORDNANCE OFFICER. Prescriptions: Ketorolac [Toradol] 10 mg PO Q8HR #10 tab Is patient prescribed a controlled substance at d/c from ED?: No Referrals: Thom Monroy MD [Primary Care Provider] - 1-2 days Jesus Mckeon MD [STAFF PHYSICIAN] - 1-2 days Time of Disposition: 15:16
[2020-12-20 12:25] LABS: Appearance,Urine Clear (Clear); Bilirubin,Urine Negative (Negative); Blood,Urine Negative (Negative); Color,Urine Yellow; Glucose,Urine (UA) 3+ (Negative); Ketones,Urine Negative (Negative); Leukocyte Esterase,Urine Negative (Negative); Nitrite,Urine Negative (Negative); Protein,Urine Negative (Negative); Urobilinogen,Urine <2.0 mg/dL (<2.0)
[2020-12-20 13:02] LABS: ALT 53 U/L (4-34); AST 43 U/L (14-36); African American GFR (CKD) >90 (>60 ml/min/1.73 sqM); Albumin 3.6 g/dL (3.5-5.0); Alkaline Phosphatase 71 U/L (38-126); Anion Gap 8 mmol/L; Blood Urea Nitrogen 11 mg/dL (7-17); Carbon Dioxide 22 mmol/L (22-30); Chloride 104 mmol/L (98-107); Glucose 218 mg/dL (74-99); Magnesium 1.7 mg/dL (1.6-2.3); Non-African American GFR(CKD) >90 (>60 ml/min/1.73 sqM); Sodium 134 mmol/L (137-145); Total Bilirubin 0.4 mg/dL (0.2-1.3); Total Protein 6.2 g/dL (6.3-8.2)
--- NOTE | 2020-12-20 14:58 | US ---
EXAMINATION TYPE: US transvaginal DATE OF EXAM: 12/20/2020 COMPARISON: NONE CLINICAL HISTORY: vaginal bleeding x 4 days. currently has breast CA and on Tamoxifen. Bleeding x 4 d ays, , no pain TECHNIQUE: TV. Transvaginal sonographic images Date of LMP: 6yrs ago EXAM MEASUREMENTS: Uterus: 7.9 x 3.9 x 2.6 cm Endometrial Stripe: 0.6 cm Right Ovary: 2.2 x 1.3 x 1.3 cm Left Ovary: not seen 1. Uterus: Anteverted wnl 2. Endometrium: No focal mass, lower uterine segment shows a somewhat heterogeneous appearance to th e endometrium 3. Right Ovary: atrophic, wnl 4. Left Ovary: not seen due to bowel gas 5. Bilateral Adnexa: wnl 6. Posterior cul-de-sac: wnl IMPRESSION: There is a somewhat heterogeneous appearance to the endometrium at the lower uterine segm ent, consider [employer] MACHINE OPERATOR consult, the exam is limited
[2020-12-20 15:35] VITALS: BP 98/60; PULSE 66
== END 2020-12-20 15:32 | disposition home or self-care (01) ==
LOC: EC 11:03
DX: N93.8 Other specified abnormal uterine and vaginal bleeding (principal); M54.5 Low back pain; I10 Essential (primary) hypertension; E78.5 Hyperlipidemia, unspecified; C50.919 Malignant neoplasm of unspecified site of unspecified female breast; Z79.84 Long term (current) use of oral hypoglycemic drugs; Z79.82 Long term (current) use of aspirin; Z79.1 Long term (current) use of non-steroidal anti-inflammatories (NSAID); Z79.810 Long term (current) use of selective estrogen receptor modulators (SERMs); Z79.899 Other long term (current) drug therapy; Z87.891 Personal history of nicotine dependence; Z86.718 Personal history of other venous thrombosis and embolism; Z88.0 Allergy status to penicillin; Z98.84 Bariatric surgery status
CPT/HCPCS: 36415; 80053; 83605; 83735; 85025; 81003; 76830; 96374; 99284; J1885

== ENCOUNTER → 2021-02-28 | Outpatient (CLI) | payer BC ==
--- NOTE | 2021-03-01 07:18 | ECHOF ---
Referral Reason:Z01.818 Preprocedural MEASUREMENTS -------- HEIGHT: 170.2 cm WEIGHT: 84.8 kg BP: RVIDd: 2.8 cm (< 3.3) IVSd: 1.6 cm (0.6 - 1.1) LVIDd: 2.9 cm (3.9 - 5.3) LVPWd: 1.7 cm (0.6 - 1.1) IVSs: 2.0 cm LVIDs: 1.9 cm LVPWs: 1.7 cm LAESV Index (A-L): 26.51 ml/m Ao Diam: 3.2 cm (2.0 - 3.7) AV Cusp: 2.2 cm (1.5 - 2.6) LA Diam: 4.1 cm (2.7 - 3.8) MV EXCURSION: 17.007 mm (> 18.000) MV EF SLOPE: 90 mm/s (70 - 150) EPSS: 0.8 cm MV E Judah: 0.99 m/s MV DecT: 198 ms MV A Judah: 0.96 m/s MV E/A Ratio: 1.04 RAP: 5.00 mmHg RVSP: 40.83 mmHg FINDINGS -------- Sinus rhythm. This was a technically good study. The left ventricular size is normal. There is moderate concentric left ventricular hypertrophy. O verall left ventricular systolic function is normal with, an EF between 55 - 60 %. The diastolic fi lling pattern is normal for the age of the patient 11.44. The right ventricle is normal in size. Normal LA size by volume 22+/-6 ml/m2. The right atrial size is normal. The aortic valve is trileaflet, and appears structurally normal. No aortic stenosis or regurgitation. The mitral valve is normal. There is trace mitral regurgitation. The tricuspid valve appears structurally normal. Mild tricuspid regurgitation present. There is m ild pulmonary hypertension. The right ventricular systolic pressure, as measured by Doppler, is 40. 83mmHg. There is no pulmonic regurgitation present. The aortic root size is normal. Normal inferior vena cava with normal inspiratory collapse consistent with estimated right atrial pre ssure of 5 mmHg. There is no pericardial effusion. CONCLUSIONS -------- 1. There is moderate concentric left ventricular hypertrophy. 2. Overall left ventricular systolic function is normal with, an EF between 55 - 60 %. 3. Normal LA size by volume 22+/-6 ml/m2. 4. The aortic valve is trileaflet, and appears structurally normal. No aortic stenosis or regurgitati on. 5. There is trace mitral regurgitation. 6. Mild tricuspid regurgitation present. 7. There is mild pulmonary hypertension. 8. There is no pericardial effusion. FUNERAL LIMOUSINE DRIVER: Padmaja Burnham RDCS
== END | disposition home or self-care (01) ==
LOC: RADECHMAIN 13:41
PROVIDERS: ATTEND Internal Medicine Hematology & Oncology
DX: Z01.818 Encounter for other preprocedural examination (principal); I08.1 Rheumatic disorders of both mitral and tricuspid valves; I27.20 Pulmonary hypertension, unspecified
CPT/HCPCS: 93306

== ENCOUNTER → 2021-05-16 | Outpatient (CLI) | payer BC ==
--- NOTE | 2021-05-16 11:12 | MM ---
Reason for exam: follow-up at short interval from prior study. Last mammogram was performed 10 months ago. History: Patient is postmenopausal and has history of breast cancer at age 55. Family history of breast cancer in 5 paternal aunts. US discontinued breast bx LT of the left breast, November 09, 2020. Malignant MG pre op needle loc RT of the right breast, September 19, 2020. Lumpectomy of the right breast, September 19, 2020. Malignant MG stereo VAD BX RT of the right breast, September 04, 2020. US discontinued breast core RT of the right breast, August 09, 2020. Pre-pectoral silicone gel implants in both breasts, 2003. Took hormonal contraceptives for 5 years. Taking other hormone for 7 months. Took unspecified hormones for 10 years. Physical Findings: Nurse did not find any significant physical abnormalities on exam. MG 3D Diag Mammo Imp W/Cad ISATU Bilateral CC, MLO, and ID view(s) were taken. Prior study comparison: July 27, 2020, right breast MG 3d work up w/cad w/imp RT. July 25, 2020, bilateral MG 3d screen mammo imp/cad. The breast tissue is heterogeneously dense. This may lower the sensitivity of mammography. There is no discrete abnormality. Bilateral implants are intact. These results were verbally communicated with the patient and result sheet given to the patient on 05/16/21. ASSESSMENT: Incomplete: need additional imaging evaluation, BI-RAD 0 RECOMMENDATION: Ultrasound of both breasts.
--- NOTE | 2021-05-16 11:14 | USB ---
Reason for exam: additional evaluation requested from abnormal screening. History: Patient is postmenopausal and has history of breast cancer at age 55. Family history of breast cancer in 5 paternal aunts. US discontinued breast bx LT of the left breast, November 09, 2020. Malignant MG pre op needle loc RT of the right breast, September 19, 2020. Lumpectomy of the right breast, September 19, 2020. Malignant MG stereo VAD BX RT of the right breast, September 04, 2020. US discontinued breast core RT of the right breast, August 09, 2020. Pre-pectoral silicone gel implants in both breasts, 2003. Took hormonal contraceptives for 5 years. Taking other hormone for 7 months. Took unspecified hormones for 10 years. US Breast Limited BILAT Right limited breast ultrasound including focal area of concern, retroareolar and axilla demonstrates a 1.3 x 0.1cm trace amont of fluid seen at 5 o'clock. Left limited breast ultrasound including focal area of concern, retroareolar and axilla demonstrates no cystic or solid lesion seen. These results were verbally communicated with the patient and result sheet given to the patient on 05/16/21. ASSESSMENT: Benign, BI-RAD 2 RECOMMENDATION: Follow-up diagnostic mammogram of both breasts in 1 year. Manage patient on a clinical basis.
== END | disposition home or self-care (01) ==
LOC: RADMAMWWP 07:01
PROVIDERS: ATTEND Family Medicine
DX: C50.311 Malignant neoplasm of lower-inner quadrant of right female breast (principal); Z78.0 Asymptomatic menopausal state; Z80.3 Family history of malignant neoplasm of breast
CPT/HCPCS: 77062; 77066

== ENCOUNTER → 2021-06-01 | Outpatient (CLI) | payer BC ==
--- NOTE | 2021-06-01 13:52 | US ---
EXAMINATION TYPE: US venous doppler duplex LE LT DATE OF EXAM: 06/01/2021 1:29 PM COMPARISON: NONE CLINICAL HISTORY: M79.662 PAIN LEFT LEG R22.42 SWELLING LEFT LEG. Left ankle swelling x 2 weeks, po st chemotherapy [place] for Breast CA; has IVC filter in since 1999. SIDE PERFORMED: left TECHNIQUE: The lower extremity deep venous system is examined utilizing real time linear array sonog amanda with graded compression, doppler sonography and color-flow sonography. VESSELS IMAGED: Common Femoral Vein Deep Femoral Vein Greater Saphenous Vein * Femoral Vein Popliteal Vein Small Saphenous Vein * Proximal Calf Veins (* superficial vessels) Left Leg: Negative for DVT IMPRESSION: 1. Left lower extremity ultrasound negative for deep venous thrombosis.
== END | disposition home or self-care (01) ==
LOC: RADUSWWP 13:05
PROVIDERS: ATTEND Internal Medicine Hematology & Oncology
DX: M79.662 Pain in left lower leg (principal); R22.42 Localized swelling, mass and lump, left lower limb

== ENCOUNTER → 2021-06-28 | Outpatient (CLI) | payer BC ==
--- NOTE | 2021-06-28 09:44 | ECHOF ---
Referral Reason:Z01.818 PREPROCEDURAL EXAMINATION MEASUREMENTS -------- HEIGHT: 170.2 cm WEIGHT: 81.6 kg BP: RVIDd: 2.9 cm (< 3.3) IVSd: 0.9 cm (0.6 - 1.1) LVIDd: 5.7 cm (3.9 - 5.3) LVPWd: 0.9 cm (0.6 - 1.1) IVSs: 1.3 cm LVIDs: 3.9 cm LVPWs: 1.3 cm LA Diam: 4.5 cm (2.7 - 3.8) LAESV Index (A-L): 36.43 ml/m Ao Diam: 3.1 cm (2.0 - 3.7) AV Cusp: 1.9 cm (1.5 - 2.6) LA Diam: 5.3 cm (2.7 - 3.8) MV EXCURSION: 22.907 mm (> 18.000) MV EF SLOPE: 75 mm/s (70 - 150) EPSS: 0.8 cm MV E Judah: 0.63 m/s MV DecT: 244 ms MV A Judah: 0.77 m/s MV E/A Ratio: 0.81 RAP: 5.00 mmHg RVSP: 27.47 mmHg FINDINGS -------- Sinus rhythm. Pt had Chemo & Breast inplants. LV size, wall thickness and systolic function are normal, with an EF greater than 55%. The left rowan tricular size is normal. The right ventricle is normal in size. LA is moderately dilated 34-39 ml/m2 The right atrial size is normal. The aortic valve is trileaflet, and appears structurally normal. No aortic stenosis or regurgitation. Mild mitral regurgitation is present. Mild tricuspid regurgitation present. Right ventricular systolic pressure is normal at < 35 mmHg. Trace/mild (physiologic) pulmonic regurgitation. There is no pericardial effusion. CONCLUSIONS -------- 1. Pt had Chemo & Breast inplants. 2. LV size, wall thickness and systolic function are normal, with an EF greater than 55%. 3. The left ventricular size is normal. 4. The right ventricle is normal in size. 5. LA is moderately dilated 34-39 ml/m2 6. The right atrial size is normal. 7. The aortic valve is trileaflet, and appears structurally normal. No aortic stenosis or regurgitati on. 8. Mild mitral regurgitation is present. 9. Mild tricuspid regurgitation present. 10. Trace/mild (physiologic) pulmonic regurgitation. 11. There is no pericardial effusion. CERTIFIED ENDOSCOPY TECHNICIAN: Monse Feliz RDCS
== END | disposition home or self-care (01) ==
LOC: RADECHMAIN 08:19
PROVIDERS: ATTEND Internal Medicine Hematology & Oncology
DX: Z01.818 Encounter for other preprocedural examination (principal); I08.1 Rheumatic disorders of both mitral and tricuspid valves; Z98.82 Breast implant status
CPT/HCPCS: 93306

== ENCOUNTER → 2021-07-06 | Outpatient (CLI) | payer BC ==
--- NOTE | 2021-07-06 08:58 | BD ---
EXAMINATION TYPE: Axial Bone Density DATE OF EXAM: 07/06/2021 COMPARISON: NONE CLINICAL HISTORY: 55 years year old Female. ICD-10 CODE: Z79.890 HORMONE REPLACEMENT THERAPY Height: 65.5 IN Weight: 179 LBS RISK FACTORS HISTORY OF: Active: YES Diet low in dairy products/other sources of calcium: YES Postmenopausal woman: AGE 49 MEDICATIONS: Additional Medications: VIT D, LIPITOR, METFORMIN, CHOLESTEROL MED, MULTI VIT, Additional History: BREAST CANCER WITH RAD EXAM MEASUREMENTS: Bone mineral densitometry was performed using the [employer] System. Bone mineral density as measured about the Lumbar spine is: ----- L1-L4(G/cm2): 0.948 T Score Values are as follows: ----- L1: -2.1 ----- L2: -1.8 ----- L3: -1.9 ----- L4: -2.0 ----- L1-L4: -1.9 Bone mineral density BASELINE Bone mineral density about the R hip (g/cm2): 0.725 Bone mineral density about the L hip (g/cm2): 0.792 T Score values are as follows: -----R Neck: -2.3 -----L Neck: -1.8 -----R Total: -2.2 -----L Total: -1.4 Bone mineral density BASELINE FRAX%s: The graph provided illustrates a 9.1 chance for a major osteoporotic fx and a 1.4 chance for the hips probability for fx in 10 years time. IMPRESSION: Osteopenia (T Score between -2.5 and -1). There is slightly increased risk of fracture and the patient may be considered for treatment. Re-Screen 2-5 years. NOTE: T-SCORE=SD OF THE YOUNG ADULT MEAN.
== END | disposition home or self-care (01) ==
LOC: RADBDWWP 07:14
PROVIDERS: ATTEND Internal Medicine Hematology & Oncology
DX: M85.89 Other specified disorders of bone density and structure, multiple sites (principal); Z79.890 Hormone replacement therapy
CPT/HCPCS: 77080

== ENCOUNTER → 2021-08-06 | Outpatient (CLI) | payer BC ==
--- NOTE | 2021-08-06 08:36 | CT ---
EXAMINATION TYPE: CT sinus wo con DATE OF EXAM: 08/06/2021 COMPARISON: CT dated 06/12/2020 HISTORY: Chronic sinusitis CT DLP: 590.1 mGycm. Automated Exposure Control for Dose Reduction was Utilized. TECHNIQUE: CT scan of the sinuses is performed without contrast, axial images are obtained, coronal r eformatted images are also reviewed. FINDINGS: Deviated bony nasal septum convex to the right side. Previous sinus surgery with bilateral uncinectom y and maxillary antrostomies. Minimal mucosal thickening of the inferior aspect of the nasal fossa bi laterally. Patent antrostomies. Polyps/retention cysts are seen within the maxillary sinuses measuring up to 2.3 cm on the left side and 1.8 cm on the right side. Mild mucosal thickening of the maxillary sinuses. Unremarkable frontal sinus, ethmoid air cells and sphenoid sinus. Clear visualized mastoid air cells. Unremarkable visualized portion of the brain and orbits. IMPRESSION: Postsurgical changes with mucosal thickening and polyps/retention cysts of the maxillary sinuses as detailed above. Unremarkable remainder of the paranasal sinuses.
== END | disposition home or self-care (01) ==
LOC: RADCTMAIN 07:06
PROVIDERS: ATTEND Otolaryngology
DX: J34.1 Cyst and mucocele of nose and nasal sinus (principal); J34.89 Other specified disorders of nose and nasal sinuses
CPT/HCPCS: 70486

== ENCOUNTER → 2021-09-14 | Outpatient (CLI) | payer BC ==
--- NOTE | 2021-09-14 13:24 | CA ---
Transthoracic Echo Report Name: Marita Cantu Age: 56 Gender: F : 1965 Exam Date: 09/14/2021 08:38 Exam Location: [facility] Ht (in): 66 Wt (lb): 172 Ordering Physician: Jesus Mckeon MD Attending/Referring Phys: Entertainer Or Variety Artist Padmaja Hitchcock RDCS Procedure CPT: Indications: Z01.818 Chemo Cardiac Hx: Hx of breast cancer, on chemo. Breast implants Technical Quality: Fair Contrast 1: Total Dose (mL): Contrast 2: Total Dose (mL): MEASUREMENTS (Male / Female) Normal Values 2D ECHO LV Diastolic Diameter PLAX 3.3 cm 4.2 - 5.9 / 3.9 - 5.3 cm LV Systolic Diameter PLAX 1.5 cm IVS Diastolic Thickness 1.4 cm 0.6 - 1.0 / 0.6 - 0.9 cm LVPW Diastolic Thickness 1.4 cm 0.6 - 1.0 / 0.6 - 0.9 cm LV Relative Wall Thickness 0.8 RV Internal Dim ED PLAX 2.4 cm LA Volume 46.6 cm??? 18 - 58 / 22 - 52 cm??? M-MODE Aortic Root Diameter MM 3.2 cm LA Systolic Diameter MM 3.3 cm LA Ao Ratio MM 1.1 MV E Point Septal Separation 0.7 cm AV Cusp Separation MM 2.2 cm DOPPLER AV Peak Velocity 115.3 cm/s AV Peak Gradient 5.3 mmHg LVOT Peak Velocity 81.9 cm/s LVOT Peak Gradient 2.7 mmHg MV Area PHT 2.9 cm??? MR Peak Velocity 124.3 cm/s MR Peak Gradient 6.2 mmHg Mitral E Point Velocity 47.4 cm/s Mitral A Point Velocity 80.1 cm/s Mitral E to A Ratio 0.6 MV Deceleration Time 265.7 ms MV E' Velocity 6.7 cm/s Mitral E to MV E' Ratio 7.0 TR Peak Velocity 180.0 cm/s TR Peak Gradient 13.0 mmHg Right Ventricular Systolic Press 17.3 mmHg PV Peak Velocity 140.8 cm/s PV Peak Gradient 7.9 mmHg PI Peak Gradient 17.2 mmHg FINDINGS Left Ventricle Moderately increased septal wall thickness. Moderately increased posterior wall thickness. Left ventricular ejection fraction is estimated at 40-45 %. Left ventricular cavity size normal. Abnormal average global longitudinal strain of the left ventricle. Right Ventricle Normal right ventricular size and function. Normal right ventricular global systolic function. Right ventricular systolic pressure within normal limits. Right Atrium The right atrium is normal in size. Left Atrium The left atrium is normal in size. Mitral Valve Structurally normal mitral valve without significant stenosis or prolapse. There is mild mitral regurgitation. Aortic Valve Structurally normal aortic valve without significant sclerosis or stenosis. There is no aortic regurgitation. Focal thickening of the aortic valve cusps. Tricuspid Valve Structurally normal tricuspid valve without significant stenosis. Pulmonary artery systolic pressure is normal. Mild tricuspid regurgitation. Pulmonic Valve Structurally normal pulmonic valve without significant stenosis. There is no pulmonic regurgitation. Pericardium There appears to be a small pericardial effusion. Pt does have breast implants. Aorta Normal aortic root dimension. CONCLUSIONS Impaired LV function with EF between 40-45% Previewed by: Dr. Jesus Bray MD (Electronically Signed) Final Date: 14 Sep 2021 13:23
== END | disposition home or self-care (01) ==
LOC: RADECHMAIN 07:49
PROVIDERS: ATTEND Internal Medicine Hematology & Oncology
DX: Z01.818 Encounter for other preprocedural examination (principal); I08.3 Combined rheumatic disorders of mitral, aortic and tricuspid valves; I31.3 Pericardial effusion (noninflammatory); Z98.82 Breast implant status
CPT/HCPCS: 93306

== ENCOUNTER → 2021-11-30 | Outpatient (CLI) | payer BC ==
--- NOTE | 2021-11-30 11:29 | CA ---
Transthoracic Echo Report Name: Marita Cantu Age: 56 Gender: F : 1965 Exam Date: 11/30/2021 08:33 Exam Location: [facility] Ht (in): 67 Wt (lb): 178 Ordering Physician: Jesus Mkceon MD Attending/Referring Phys: Director [employer] Operations Berkley Hayes RDCS Procedure CPT: Indications: Z01.818 CHEMO- ENCOUNTER FOR PRE PROCEDURE Cardiac Hx: Technical Quality: Fair Contrast 1: Total Dose (mL): Contrast 2: Total Dose (mL): MEASUREMENTS (Male / Female) Normal Values 2D ECHO LV Diastolic Diameter PLAX 3.9 cm 4.2 - 5.9 / 3.9 - 5.3 cm LV Systolic Diameter PLAX 2.2 cm IVS Diastolic Thickness 1.6 cm 0.6 - 1.0 / 0.6 - 0.9 cm LVPW Diastolic Thickness 1.7 cm 0.6 - 1.0 / 0.6 - 0.9 cm LV Relative Wall Thickness 0.8 RV Internal Dim ED PLAX 3.0 cm LA Volume 50.0 cm??? 18 - 58 / 22 - 52 cm??? M-MODE Aortic Root Diameter MM 3.3 cm LA Systolic Diameter MM 4.7 cm LA Ao Ratio MM 1.4 AV Cusp Separation MM 2.0 cm DOPPLER AV Peak Velocity 168.5 cm/s AV Peak Gradient 11.4 mmHg AI Peak Velocity 355.6 cm/s AI Peak Gradient 50.6 mmHg AI Pressure Half Time 590.5 ms LVOT Peak Velocity 126.6 cm/s LVOT Peak Gradient 6.4 mmHg MV Area PHT 1.8 cm??? Mitral E Point Velocity 54.5 cm/s Mitral A Point Velocity 82.0 cm/s Mitral E to A Ratio 0.7 MV Deceleration Time 416.5 ms MV E' Velocity 4.5 cm/s Mitral E to MV E' Ratio 12.0 TR Peak Velocity 222.4 cm/s TR Peak Gradient 19.8 mmHg Right Ventricular Systolic Press 24.8 mmHg FINDINGS Left Ventricle Moderately increased left ventricular wall thickness. Normal left ventricular systolic function with no obvious regional wall motion abnormalities. Normal left ventricular diastolic filling pattern. Left ventricular ejection fraction is estimated at 55-60 %. Right Ventricle Right ventricle not well visualized. Right ventricular systolic pressure within normal limits. Right Atrium Normal right atrial size. Left Atrium Normal left atrial size. No evidence for an atrial septal defect. Mitral Valve Structurally normal mitral valve. Trace mitral regurgitation. Aortic Valve Trileaflet aortic valve. Aortic valve sclerosis. Trace aortic regurgitation. Tricuspid Valve Structurally normal tricuspid valve. Mild tricuspid regurgitation. Pulmonic Valve Structurally normal pulmonic valve. Mild pulmonic regurgitation. Pericardium No pericardial effusion. Aorta Normal size aortic root and proximal ascending aorta. CONCLUSIONS Left ventricular systolic function is normal with an ejection fraction of 60% Previewed by: Dr. Jose Asif MD (Electronically Signed) Final Date: 30 November 2021 11:28
== END | disposition home or self-care (01) ==
LOC: RADECHMAIN 08:02
PROVIDERS: ATTEND Internal Medicine Hematology & Oncology
DX: Z01.818 Encounter for other preprocedural examination (principal); I08.1 Rheumatic disorders of both mitral and tricuspid valves
CPT/HCPCS: 93306

== ENCOUNTER → 2022-01-25 | Outpatient (CLI) | payer BC ==
--- NOTE | 2022-01-26 16:06 | CA ---
Transthoracic Echo Report Name: Marita Cantu Age: 56 Gender: F : 1965 Exam Date: 01/25/2022 11:29 Exam Location: [place] [facility] Ht (in): 67 Wt (lb): 155 Ordering Physician: Jesus Mckeon MD Attending/Referring Phys: Engine Service Repairer Monse Feliz RDCS Procedure CPT: Indications: Z01.818 Chemo Cardiac Hx: Breast Inplants Technical Quality: Good Contrast 1: Total Dose (mL): Contrast 2: N/A Total Dose (mL): MEASUREMENTS (Male / Female) Normal Values 2D ECHO LV Diastolic Diameter PLAX 5.4 cm 4.2 - 5.9 / 3.9 - 5.3 cm LV Systolic Diameter PLAX 4.5 cm IVS Diastolic Thickness 0.9 cm 0.6 - 1.0 / 0.6 - 0.9 cm LVPW Diastolic Thickness 1.0 cm 0.6 - 1.0 / 0.6 - 0.9 cm LV Relative Wall Thickness 0.4 RV Internal Dim ED PLAX 2.4 cm LA Systolic Diameter LX 4.5 cm 3.0 - 4.0 / 2.7 - 3.8 cm LA Volume 45.1 cm??? 18 - 58 / 22 - 52 cm??? M-MODE Aortic Root Diameter MM 3.3 cm LA Systolic Diameter MM 4.9 cm LA Ao Ratio MM 1.5 MV E Point Septal Separation 0.2 cm AV Cusp Separation MM 1.7 cm DOPPLER MV Area PHT 3.0 cm??? Mitral E Point Velocity 70.7 cm/s Mitral A Point Velocity 101.1 cm/s Mitral E to A Ratio 0.7 MV Deceleration Time 249.5 ms MV E' Velocity 5.6 cm/s Mitral E to MV E' Ratio 12.7 TR Peak Velocity 231.1 cm/s TR Peak Gradient 21.4 mmHg Right Ventricular Systolic Press 26.4 mmHg FINDINGS Left Ventricle Normal Left ventricular size, wall thickness, systolic function with no obvious regional wall motion abnormalities. Left ventricular ejection fraction is estimated at 50-55 %. Right Ventricle Normal right ventricular size and function. Right Atrium Normal right atrial size. Left Atrium Moderately increased left atrial diameter. Mitral Valve Structurally normal mitral valve. Mild mitral regurgitation. Aortic Valve Trileaflet aortic valve. Tricuspid Valve Structurally normal tricuspid valve. Trace to mild tricuspid regurgitation. Pulmonic Valve Structurally normal pulmonic valve. Pericardium Normal pericardium. Aorta Normal size aortic root and proximal ascending aorta. CONCLUSIONS Normal LV systolic function. No LVH noted Normal intracardiac valves Previewed by: Dr. Jesus Bray MD (Electronically Signed) Final Date: 26 January 2022 16:06
== END | disposition home or self-care (01) ==
LOC: RADECHMAIN 11:20
PROVIDERS: ATTEND Internal Medicine Hematology & Oncology
DX: Z01.818 Encounter for other preprocedural examination (principal)
CPT/HCPCS: 93306

== ENCOUNTER → 2022-10-16 | Outpatient (CLI) | payer BC ==
--- NOTE | 2022-10-16 08:41 | MM ---
Reason for Exam: Hx of breast cancer, conservation therapy. Last screening mammogram was performed 4 month(s) ago. Indicated Problems: Breast implant problem of the left side for 10 Day(s). Patient History: Menarche at age 13. First Full-Term at age 20. Postmenopausal. Breast cancer, right, age 55. Previous chest radiation therapy at age 55. Previous chemotherapy at age 55. Patient used Hormonal Contraceptives for 5 years. Patient used Unspecified Hormone for 10 years. 09/19/2020, Lumpectomy on the Right side. 09/19/2020, Malignant Core Biopsy on the right side. 09/04/2020, Malignant Core Biopsy on the right side. 11/09/2020, US discontinued breast bx LT on the left side. 08/09/2020, US discontinued breast core RT on the right side. 2003, Bilateral Implants. Paternal aunt had breast cancer. Paternal aunt had breast cancer. Paternal aunt had breast cancer. Paternal aunt had breast cancer. Paternal aunt had breast cancer. Prior Study Comparison: 11/14/2016 Screening Mammogram, [facility]. 07/25/2020 Bilateral Screening Mammogram, [facility]. 07/27/2020 Right Diagnostic Mammogram, [facility] 07/27/2020 Right Diagnostic Ultrasound, [facility] 10/27/2020 Bilateral Diagnostic Ultrasound, [facility]. 05/16/2021 Bilateral Diagnostic Mammogram, [facility]. 05/16/2021 Bilateral Diagnostic Ultrasound, [facility]. 05/24/2022 Bilateral MG 3D diag mammo imp w/cad ISATU, [facility]. Tissue Density: There are scattered fibroglandular densities. Findings: The breast implants appear intact on radiography. No new suspicious masses, calcifications or distortions. Overall Assessment: Benign, BI-RAD 2 Management: Screening Mammogram of both breasts in 1 year. No evidence for left breast implant failure. Consider MRI for more sensitive exam. Results were given to the patient verbally at the time of exam. Patient should continue monthly self-breast exams. A clinical breast exam by your physician is recommended on an annual basis. This exam should not preclude additional follow-up of suspicious palpable abnormalities. Note on Verito scores and lifetime risk: 1. A Verito score greater than 3% is considered moderate risk. If this is the case, consider specialist referral to assess eligibility for a risk reducing agent. 2. If overall lifetime risk for the development of breast cancer is 20% or higher, the patient may qualify for future screening with alternating mammogram and breast MRI. Electronically signed and approved by: Matty Mckinnon DO
== END | disposition home or self-care (01) ==
LOC: RADMAMWWP 07:20
PROVIDERS: ATTEND Family Medicine
DX: T85.9XXD Unspecified complication of internal prosthetic device, implant and graft, subsequent encounter (principal); Z78.0 Asymptomatic menopausal state; Z80.3 Family history of malignant neoplasm of breast
CPT/HCPCS: 77062; 77066

== ENCOUNTER → 2023-08-11 | Outpatient (CLI) | payer BC ==
--- NOTE | 2023-08-11 07:54 | BD ---
EXAMINATION TYPE: Axial Bone Density DATE OF EXAM: 08/11/2023 CLINICAL HISTORY: 58 years old Female. ICD-10 CODE: C50.311 BREAST Height: 66 Weight: 179 FRAX RISK QUESTIONS: Alcohol (3 or more units per day): no Family History (Parent hip fracture): no Glucocorticoids (More than 3mos): no (Ex: prednisone, prednisolone, methylprednisolone, dexamethasone, and hydrocortisone). History of Fracture in Adulthood: no Secondary Osteoporosis: 1. Type 1 Diabetes: no 2. Hyperthyroidism: no 3. Menopause before 45: no 4. Malnutrition: no 5. Chronic liver disease: no Rheumatoid Arthritis: no Current Tobacco Use: no RISK FACTORS HISTORY OF: Surgery to Spine/Hip(right/left)/Wrist (right/left): no EXAM MEASUREMENTS: Bone mineral densitometry was performed using the [employer] System. Bone mineral density as measured about the Lumbar spine is: ----- L1-L4(G/cm2): 0.966 T Score Values are as follows: ----- L1: -2.5 ----- L2: -1.5 ----- L3: -1.6 ----- L4: -1.7 ----- L1-L4: -1.8 Z Score Values are as follows: ----- L1: -1.9 ----- L2: -1.0 ----- L3: -1.0 ----- L4: -1.1 ----- L1-L4: -1.2 Bone mineral density has: increased 1.9 % since study of: 07.06.2021 Bone mineral density about the R hip (g/cm2): 0.732 Bone mineral density about the L hip (g/cm2): 0.777 T Score values are as follows: -----R Neck: -2.3 -----L Neck: -2.4 -----R Total: -2.2 -----L Total: -1.8 Z Score values are as follows: -----R Neck: -1.5 -----L Neck: -1.6 -----R Total: -1.7 -----L Total: -1.4 Bone mineral density has: decreased -3.0 % since study of: 3.18.2021 FRAX%s: The graph provided illustrates a 10.6% chance for a major osteoporotic fx and a 1.8% chance f or the hips probability for fx in 10 years time. IMPRESSION: Osteopenia (T Score between -2.5 and -1). There is slightly increased risk of fracture and the patient may be considered for treatment. Re-Screen 2-5 years. NOTE: T-SCORE=SD OF THE YOUNG ADULT MEAN.
== END | disposition home or self-care (01) ==
LOC: RADBDWWP 07:01
PROVIDERS: ATTEND Internal Medicine Hematology & Oncology
DX: C50.311 Malignant neoplasm of lower-inner quadrant of right female breast (principal); E11.9 Type 2 diabetes mellitus without complications; D50.9 Iron deficiency anemia, unspecified; M81.0 Age-related osteoporosis without current pathological fracture; M85.89 Other specified disorders of bone density and structure, multiple sites; I10 Essential (primary) hypertension; Z17.0 Estrogen receptor positive status [ER+]
CPT/HCPCS: 77080

== ENCOUNTER → 2023-12-31 | Outpatient (CLI) | payer BC ==
--- NOTE | 2023-12-31 07:54 | MM ---
Reason for Exam: Hx of breast cancer, conservation therapy. Last mammogram was performed 1 year(s) and 3 month(s) ago. Patient History: Menarche at age 13. First Full-Term at age 20. Postmenopausal. Breast cancer, right, age 55. Previous chest radiation therapy at age 55. Previous chemotherapy at age 55. Patient used Hormonal Contraceptives for 5 years. Patient used Unspecified Hormone for 10 years. 09/19/2020, Lumpectomy on the Right side. 09/19/2020, Malignant Core Biopsy on the right side. 09/04/2020, Malignant Core Biopsy on the right side. 11/09/2020, US discontinued breast bx LT on the left side. 08/09/2020, US discontinued breast core RT on the right side. 01/19/2023, Bilateral Implants. 2003, Bilateral Implants. Paternal aunt had breast cancer. Paternal aunt had breast cancer. Paternal aunt had breast cancer. Paternal aunt had breast cancer. Paternal aunt had breast cancer. Prior Study Comparison: 07/27/2020 Right Diagnostic Mammogram, [facility]. 10/27/2020 Bilateral Diagnostic Ultrasound, [facility]. 05/16/2021 Bilateral Diagnostic Mammogram, [facility]. 05/16/2021 Bilateral Diagnostic Ultrasound, [facility]. 05/24/2022 Bilateral MG 3D diag mammo imp w/cad ISATU, [facility]. 10/16/2022 Bilateral MG 3D diag mammo imp w/cad ISATU, [facility]. Tissue Density: The breasts are heterogeneously dense, which may obscure small masses. Findings: Lumpectomy changes right breast remain stable. New implants are noted which appear to be intact. No new masses or microcalcifications present time. Overall Assessment: Benign, BI-RAD 2 Management: Diagnostic Mammogram of both breasts in 1 year. . Results were given to the patient verbally at the time of exam. Patient should continue monthly self-breast exams. A clinical breast exam by your physician is recommended on an annual basis. This exam should not preclude additional follow-up of suspicious palpable abnormalities. Note on Verito scores and lifetime risk: 1. A Verito score greater than 3% is considered moderate risk. If this is the case, consider specialist referral to assess eligibility for a risk reducing agent. 2. If overall lifetime risk for the development of breast cancer is 20% or higher, the patient may qualify for future screening with alternating mammogram and breast MRI. Electronically signed and approved by: Virgilio Mcdaniel M.D. Radiologis
== END | disposition home or self-care (01) ==
LOC: RADMAMWWP 07:13
PROVIDERS: ATTEND Family Medicine
DX: Z85.3 Personal history of malignant neoplasm of breast
CPT/HCPCS: 77062; 77066

== ENCOUNTER → 2024-02-09 | Outpatient (CLI) | payer BC ==
--- NOTE | 2024-02-09 08:43 | CT ---
EXAMINATION TYPE: CT sinus wo con DATE OF EXAM: 02/09/2024 COMPARISON: 08/06/2021 HISTORY: 58-year-old female Chronic maxillary sinusitis. Prior hx of cysts/polyps, prior sinus sx. CT DLP: 563.40 mGycm Automated exposure control for dose reduction was used. TECHNIQUE: Noncontrast axial views of the paranasal sinuses were obtained. Coronal and sagittal recon structions performed. FINDINGS: PARANASAL SINUSES: Mild to moderate mucosal thickening right maxillary sinus. Trace mucosal thickening left maxillary si nus. Trace frothy opacification posterior right ethmoid air cells. Otherwise, frontal and sphenoid sinuses well pneumatized. There is no air-fluid level. There is mild reactive sravanthi- osteogenesis involving the right maxillary sinus wall. There is no destruction of the osseous musa of the paranasal sinuses. THE NASAL CAVITY: The osteomeatal complexes are widely patent with evidence of previous FESS with bilateral medial maxi llary antrectomies. There is rightward nasal septal deviation. The imaged brain and orbits are normal in appearance. Mastoid air cells and middle ear cavities are well pneumatized. Reformatted images confirm above findings. IMPRESSION: 1. Previous FESS with bilateral medial maxillary antrectomies. 2. [id number] long-standing right maxillary sinus disease. Trace mucosal thickening left maxill nani sinus. The previous polyps or mucosal retention cysts along the floors of the maxillary sinuses h ave considerably improved. 3. Trace frothy opacification posterior right ethmoid air cells may be seen with acute viral sinusiti s. 4. Similar rightward nasal septal deviation. [facility], , 02/09/2024 8:40 AM
== END | disposition home or self-care (01) ==
LOC: RADCTMAIN 07:22
PROVIDERS: ATTEND Otolaryngology
CPT/HCPCS: 70486

== ENCOUNTER → 2024-03-08 | Outpatient (CLI) | payer BC ==
[2024-03-08 08:21] LABS: Partial Thromboplastin Time 24.2 sec (22.0-30.0); Prothrombin Time 11.1 sec (10.0-12.5)
[2024-03-08 10:18] LABS: HCT 32.2 % (37.2-46.3); HGB 9.9 g/dL (12.0-15.0); MCH 20.1 pg (27.0-32.0); MCHC 30.7 g/dL (32.0-37.0); MCV 65.3 FL (80.0-97.0); NRBC Per 100 WBC 0 X 10*3/uL (0.00-0.01); Platelet Count 238 X 10*3/uL (140-440); RBC 4.93 X 10*6/uL (4.10-5.20); RDW 14.9 % (11.5-14.5); WBC 6.07 X 10*3/uL (4.50-10.00)
[2024-03-08 10:28] LABS: ALT 52 U/L (8-44); AST 50 U/L (13-35); Albumin 4.3 g/dL (3.8-4.9); Albumin/Globulin Ratio 1.72 Ratio (1.60-3.17); Alkaline Phosphatase 103 U/L (41-126); BUN/Creat Ratio 16.75 Ratio (12.00-20.00); Blood Urea Nitrogen 13.4 mg/dL (9.0-27.0); Calcium 9.7 mg/dL (8.7-10.3); Carbon Dioxide 22.9 mmol/L (21.6-31.8); Chloride 106 mmol/L (96-109); Globulin 2.5 g/dL (1.6-3.3); Glucose 148 mg/dL (70-110); Potassium 4.1 mmol/L (3.5-5.5); Sodium 141 mmol/L (135-145); Total Bilirubin 0.6 mg/dL (0.3-1.2); Total Protein 6.8 g/dL (6.2-8.2)
== END | disposition home or self-care (01) ==
LOC: LABPAT 07:09
PROVIDERS: ATTEND Orthopaedic Surgery
DX: Z01.818 Encounter for other preprocedural examination (principal); E11.9 Type 2 diabetes mellitus without complications; M16.12 Unilateral primary osteoarthritis, left hip; R00.1 Bradycardia, unspecified; Z22.322 Carrier or suspected carrier of Methicillin resistant Staphylococcus aureus
CPT/HCPCS: 80053; 83036; 85027; 85610; 85730; 86850; 86900; 86901; 87070; 93005

== ENCOUNTER 2024-03-17 10:05 | Observation (INO) | payer BC ==
[~2024-03-17 10:05] MED LIST changes: -DEXAMETHASONE SOD PHOSPHATE 4 MG/ML 1 ML VIAL IV ONE; +HYDROmorphone 0.5 MG/0.5 ML SYRINGE IVP PRN; -LACTATED RINGERS 1,000 ML IV SCH; -MIDAZOLAM 2 MG/2 ML VIAL IV PRN; -ONDANSETRON 4 MG/2 ML VIAL IVP ONE; +TRANEXAMIC 1,000 MG/100ML-NACL 1,000 MG in SALINE 1 100ML.BAG IV PRN; +TRANEXAMIC 1,000 MG/100ML-NACL 1,000 MG in SALINE 1 100ML.BAG IVPB PRN
[2024-03-17] MEDS: IV FLUID CONTINUATION 1,000 ML IV ONE (11:00)
[2024-03-17] MEDS: LACTATED RINGERS 1,000 ML IV SCH (11:01)
[2024-03-17] MEDS: oxyCODONE ER 10 MG TAB.ER.12H PO PRN (11:07)
[2024-03-17] MEDS: DOCUSATE 100 MG CAP PO PRN (11:07)
[2024-03-17] MEDS: ACETAMINOPHEN TAB 500 MG TAB PO PRN (11:07)
[2024-03-17] MEDS: KETOROLAC 15 MG/ML 1 ML VIAL IVP PRN (11:08)
[2024-03-17] MEDS: ONDANSETRON 4 MG/2 ML VIAL IVP PRN ×3 (11:08→21:39)
[2024-03-17] MEDS: DEXAMETHASONE SOD PHOSPHATE 10 MG/ML 1 ML VIAL IV PRN (11:08)
[2024-03-17] MEDS: FAMOTIDINE 20 MG/2 ML VIAL IVP PRN (11:13)
[2024-03-17 11:20] LABS: Glucose,Whole Blood 122 mg/dL (70-110)
[2024-03-17] MEDS: MIDAZOLAM 2 MG/2 ML VIAL IV ONE (11:20)
[2024-03-17] MEDS ORDERED: SUCCINYLCHOLINE CHLORIDE 200 MG/10 ML VIAL IV ONE (11:55)
[2024-03-17] MEDS ORDERED: LIDOCAINE 1% INJ 10MG/ML (20 ML MDV) ONE (11:55)
[2024-03-17] MEDS ORDERED: HYDROmorphone (PF) 1 MG/ML ONE (11:55)
[2024-03-17] MEDS ORDERED: ROCURONIUM 10 MG/ML (5 ML VIAL) IV ONE (11:55)
[2024-03-17] MEDS ORDERED: TRANEXAMIC 1,000 MG/100ML-NACL PREMIX BAG ONE (11:55)
[2024-03-17] MEDS ORDERED: ePHEDrine 50 MG/ML 1 ML VIAL ONE (11:55)
[2024-03-17] MEDS ORDERED: ROPIVACAINE 5 MG/ML 30 ML VIAL ONE (11:55)
[2024-03-17] MEDS ORDERED: fentaNYL (PF) 50 MCG/ML 2 ML AMP ONE (11:55)
[2024-03-17] MEDS ORDERED: GLYCOPYRROLATE 0.2 MG/ML 2 ML VIAL ONE (11:55)
[2024-03-17] MEDS ORDERED: PROPOFOL 10 MG/ML 20 ML VIAL IV ONE (11:55)
[2024-03-17] MEDS ORDERED: NEOSTIGMINE 1 MG/ML 10 ML VIAL ONE (11:55)
[2024-03-17] MEDS: EPINEPHrine 2 MG in SODIUM CHLORIDE 0.9% 200 ML IV ONE (12:42)
[2024-03-17] MEDS: ROPIVACAINE/EPI/CLONIDINE/KET 50 ML SYRINGE MISCELLANE PRN (12:43)
--- NOTE | 2024-03-17 12:56 | P.ANPRN ---
Procedure Note - Anesthesia - Nerve Block Performed Left Johny Single Time Out Performed: Yes (1120) Date of Procedure: 03/17/24 Procedure Start Time: Procedure Stop Time: Location of Patient: PreOp Indication: Acute Post-Operative Pain, Requested by Surgeon Specifically requested for management of pain by DrMaagly: Eliseo Kuhn Sedation Type: Sedate with meaningful contact maintained Preparation: Sterile Prep Position: Supine Catheter: None Needle Types: Pajunk Needle Gauge: 21 Ultrasound used to visualize needle placement: Yes Ultrasound used to observe medication spread: Yes Injectate: 0.5% Ropivacaine (see comment for volume) (30cc) Blood Aspirated: No Pain Paresthesia on Injection Noted: No Resistance on Injection: Normal Image Stored and Saved: Yes Events: Uneventful and Well Tolerated
[2024-03-17] MEDS: LACTATED RINGERS 1,000 ML IV ONE (13:48)
--- NOTE | 2024-03-17 13:54 | P.OP ---
Date of Procedure: 03/17/24 Preoperative Diagnosis: 1. Severe left hip osteoarthritis 2. 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 History of breast cancer 4. Chronic anemia/thalassemia (Hgb 9.9-11.5 preoperative) 5. DM2 (preoperative HgbA1C 7.6) Postoperative Diagnosis: Same Procedure(s) Performed: Left direct anterior total hip arthroplasty Implants: 1. Elke Trident II Acetabular Cup, Size #42 2. Westpoint Accolade C Size # 4 Femoral Stem, Standard Offset 3. Biolox delta femoral head, 36 mm, +0 mm neck Anesthesia: ANTWAN, regional Surgeon: Eliseo Kuhn Bag Tester #1: Tye Madrigal Estimated Blood Loss (ml): 200 IV fluids (ml): 800 Pathology: other (Femoral head sent due to history of breast cancer) Condition: stable Disposition: PACU Indications for Procedure: the patient is a very pleasant 58-year-old female with multiple medical problems. She had severe left hip and groin pain. Her x-rays and MRI both showed moderate arthritis. Given her clinical exam and imaging finding we both agreed that her pain was likely coming from intra-articular hip arthritis. She requested proceeding with a total hip replacement. She has multiple risk factors. She has chronic anemia and thalassemia. Her hemoglobin ranged preoperatively from just under 10-11-1/2 and multiple settings. She was cleared for surgery by her bending machine operator. She also has type 2 diabetes and had a preoperative hemoglobin A1c of 7.6. in addition to this she had relatively poor bone quality on x-rays and a history of breast cancer. She understood her slightly increased risk of complication. I had a long discussion with the patient in the office on the potential risks and complications of an elective total hip replacement through a direct anterior approach. Risks discussed include, but are certainly not limited to, risks from anesthesia, superficial infection requiring local wound care or antibiotics, deep lainey-prosthetic joint infection and the treatment required to eradicate infection, intraoperative fracture, postoperative periprosthetic fracture, damage to local blood vessels or nerves particularly the lateral femoral cutaneous nerve, delayed wound healing requiring local wound care or possibly surgical debridement, hip dislocation, leg length discrepancy, soft tissue irritation around the total hip implant such as iliopsoas tendinitis or trochanteric bursitis, wear and osteolysis from the implants, squeaking or audible noises, groin pain, thigh pain, heterotopic ossification, stiffness, aseptic loosening of the implants, dissatisfaction with surgical outcome, need for revision surgery, DVT, PE, swelling of the operative extremity, acute coronary event, stroke, failure to thrive, and possibly loss of life or limb. The patient understands that while these are the most common complications after an elective hip replacement there are certainly other less common complications possible. They were given ample time to ask questions regarding the potential complications of a hip replacement. Following our discussion the patient provided their verbal and written consent to go forward with an elective total hip replacement. Operative Findings: There was complete full-thickness cartilage loss of the superior femoral head and acetabulum. The patient had severely poor bone quality in proximal femur so I elected to use cemented fixation to lower her risk of periprosthetic femur fracture. Description of Procedure: The patient was identified in the preoperative holding area and the correct hip was marked with my initials. I reviewed the procedure and consent with the patient. All of their questions were answered. The patient was then brought back into the operating room by anesthesia. While on the [facility] anesthesia was administered by the anesthesia team. Preoperative antibiotics and tranexamic acid were also given. After the patient was under anesthesia I examined their ankles to determine their preoperative leg length discrepancy. The skin over the anterior aspect of the hip was shaved to remove hair over the site of planned incision. Both feet and ankles were padded with webril and boots for the Ryan were applied. The patient was then carefully transferred onto the Ryan table. A perineal post was immediately placed. The arms were placed on arm holders and were well-padded. Both boots were secured to the spars on the Ryan table. The patient was positioned so that the pelvis was centered over the post. Nonsterile drapes were applied. A timeout was performed identifying the correct patient, operative extremity, and procedure. At this point fluoroscopy was brought in to take preoperative images of the pelvis and operative hip. Using the standing AP pelvis from the office as a template, a comparable image was obtained with fluoroscopy. A metallic bar was used to create a bi-ischial line for use as a reference to leg length adjustments during the procedure. Global offset was also measured on both the operative and nonoperative leg. Fluoroscopy was then brought out and a pre-scrub using a chlorhexidine scrub brush was performed. The operative limb was then prepped and draped in the standard sterile fashion. An anterior longitudinal incision was made lateral and distal to the ASIS. The skin and subcutaneous tissues were incised sharply. The underlying tensor fascia was identified and incised in its midportion. The fascia was dissected free from the underlying muscle and the muscle belly was retracted. A blunt tipped cobra retractor was placed over the superior neck under the muscle fibers of the gluteus minimus. The deep enveloping fascia of the tensor was incised. The anterior leash of vessels were then identified and cauterized. The fascia between the rectus and the capsule was then incised and the pre-capsular fat was excised. A second Cobra was placed inferior to the neck. The interval between the rectus and iliocapsularis and the hip capsule was developed and a retractor was placed carefully over the anterior rim of the acetabulum. A T-shaped anterior capsulotomy was performed. The superior capsular leaflet was left in place in the inferior capsular flap was excised. The Cobra retractors were placed intracapsularly. We then made a femoral neck osteotomy according to preoperative and intraoperative templating and confirmed the level of the osteotomy using fluoroscopic imaging. The femoral head was removed, passed off to the back table, and sized. The superior capsular flap was excised. Retractors were placed circumferentially exposing the acetabulum. We then circumferentially debrided the acetabulum free of labrum and osteophytes. The pulvinar was removed to fully visualize the cotyloid fossa. We then sequentially reamed to achieve peripheral fit and excellent bleeding subchondral bone. The socket was thoroughly irrigated. The acetabular component was impacted into the appropriate position using fluoroscopy to guide version, inclination, and depth of insertion taking care to have a comparable image of the AP pelvis to the standing image taken in the office. An excellent press-fit was achieved and final position was confirmed using fluoroscopy. The press fit was augmented with bony cancellus dome screws. The liner was then impacted into the socket. Attention was then turned to the femur. The remnant dorsal lateral capsule was excised. The short external rotators were visible and protected. A bone hook was used to confirm appropriate translation of the trochanter away from the acetabulum. The leg was then extended and adducted and the bone hook was used to elevate the femur for broaching. On inspection of the patient's proximal femur, they appeared to have poor bone quality so I elected to proceed with cemented fixation of the femoral component. A box osteotome and blunt tipped canal sound was then utilized to gain access to the femoral canal. We then sequentially broached the femur in appropriate anteversion until torsional stability was achieved and the implant was felt to have reached the appropriate size to allow trialing. The neck cut was brought flush to the trial broach with a calcar planar. A trial neck and head were then placed onto the broach and the hip was atraumatically reduced under direct visualization. External rotation to 90 was performed to assess stability. Fluoroscopy was brought in. An AP and lateral fluoroscopic image of the proximal femur was obtained to assess position and fill of the trial broach. An AP of the pelvis was then obtained and matched to the preoperative image taken. A bi-ischial bar was then placed and measurements were taken to assess changes in length and offset. The hip was then carefully dislocated, the proximal femur was exposed, and the trial i mplants were removed. The proximal femur was then prepared for cementing. The canal was thoroughly irrigated with pulsatile lavage to remove blood and marrow contents. A cement restrictor was placed to a depth just distal to the tip of the final implant. Epinephrine-soaked gauze was then packed into the proximal femur. 2 bags of cement were then mixed using a centrifuge and placed into a cement gun. Anesthesia was notified that cementing was about to commence to make sure the patient was appropriately ventilated and hydrated. Once the cement had reached appropriate consistency, the cement gun was used to fill the canal in a retrograde fashion starting at the restrictor. Cement was then pressurized into the canal with a blue tipped outcomes analyst. The stem was then carefully introduced into the cement taking care to guide the implant into appropriate version. The stem was held in position until the cement had fully set. All extra cement was removed while the cement was hardening. The trunnion was cleansed and the final head was tapped into place to engage the Cuello taper. The acetabulum was irrigated and visualized to be free of debris. The hip was carefully reduced. Stability was checked clinically with external rotation to 90 and there was no evidence of instability. Final fluoroscopic images were taken. The wound was then thoroughly irrigated and soaked with a dilute Betadine rinse for 3 minutes. 3 L of sterile saline was irrigated through the wound using pulsatile lavage. Local anesthetic cocktail was injected into the soft tissues around the surgical field. The wound was then closed in layers. A sterile dressing was placed over the surgical incision. The drapes were taken down and the patient was carefully transferred off of the Ryan table. Following removal of the boots the leg lengths felt acceptable. The patient was then taken to recovery room having tolerated the procedure well. Tye Madrigal PA-C was required as a skilled head start assistant teacher due to the complexity of surgery for patient positioning, draping, exposure, retraction, closure of wound, and application of dressing. PLAN: The patient can weight-bear as tolerated on the operative extremity. 2 doses of postoperative antibiotics. DVT prophylaxis with aspirin 81 mg twice a day based on preoperative risk stratification. Physical therapy for gait training.
--- NOTE | 2024-03-17 13:56 | XR ---
EXAMINATION TYPE: XR Hip Limited LT DATE OF EXAM: 03/17/2024 COMPARISON: NONE CLINICAL INDICATION: Female, 58 years old with history of LEFT TOTAL ANTERIOR HIP; TECHNIQUE: 7 view submitted. FINDINGS: There is postsurgical change compatible hip replacement surgery. IMPRESSION: 1. Postoperative change. [facility], , 03/17/2024 1:53 PM
--- NOTE | 2024-03-17 13:56 | FL ---
EXAMINATION TYPE: FL guidance operating room DATE OF EXAM: 03/17/2024 HISTORY: Fluoroscopy time Total dose area product (DAP) in uGy*m?, mGy*cm? (or similar): 1.7631 IMPRESSION: 1. Fluoroscopy time. [facility], , 03/17/2024 1:54 PM
[2024-03-17] MEDS ORDERED: MAGNESIUM HYDROXIDE 2,400 MG/30 ML CUP PO PRN (14:08)
[2024-03-17] MEDS ORDERED: NALOXONE 0.4 MG/ML 1 ML VIAL IV PRN (14:08)
[2024-03-17] MEDS ORDERED: HYDROmorphone 0.5 MG/0.5 ML SYRINGE IVP PRN ×2 (14:08)
[2024-03-17] MEDS ORDERED: HYDROmorphone 1 MG/ML 1 ML SYRINGE IVP PRN (14:08)
[2024-03-17] MEDS ORDERED: HYDROcodone/APAP 10-325MG 1 EACH TAB PO PRN (14:08)
[2024-03-17] MEDS ORDERED: HYDROcodone/APAP 5-325MG 1 EACH TAB PO PRN (14:08)
[2024-03-17] MEDS: SODIUM CHLORIDE 0.9% 1,000 ML IV SCH (18:03)
[2024-03-17] MEDS ORDERED: traMADol 50 MG TAB PO PRN (18:28)
[2024-03-17] MEDS: ONDANSETRON 4 MG TAB PO PRN (20:18)
--- NOTE | 2024-03-17 20:49 | P.CONS ---
History of Present Illness - Reason for Consult Consult date: 03/17/24 Medical management - History of Present Illness History of present illness; 58-year-old female with a PMH of right breast cancer (s/p chemo, radiation and lumpectomy; maintained on anastrozole), gastric bypass surgery, hyperlipidemia, diabetes mellitus, Mediterranean thalassemia and a history of DVTs (not previously on Eliquis). She presents to the hospital today for left total hip arthroplasty. At the time of the interview, patient sitting comfortably in bed with no acute complaints. At the time of the interview she reports absence of fever, chills, weight loss, chest pain, palpitations, diaphoresis, dyspnea, cough, nausea, vomiting, constipation, diarrhea, abdominal pain, weakness, myalgia, dizziness, headache, and dysuria. Internal medicine was consulted for medical management. After leaving the room was notified by the nursing staff that when the patient got up to use the restroom, she was "too dizzy" to return back so she was returned to her bed in her chair. At that time she went unresponsive for a moment, BP 169/127 with a heart rate of 111, per the nursing staff episode was 30 seconds - 1 minute. Patient felt nausea at that time and took oral Zofran as was ordered. It is reported that she spit up a bit of "brown stuff", she returned to bed however still feels some nausea at this time blood pressure 148/60, heart rate 80. Initial lab workup prior to the surgery (from 03/08/2024) showed: -hemoglobin 9.9, hematocrit 32.2, MCV 65.3, platelet 238; sodium 141, potassium 4.1, BUN 13.4, creatinine 0.8; hemoglobin A1c 7.6, AST 50, ALT 52 -Repeat CBC ordered (secondary to incident reported above) currently pending Imaging: Hip x-ray showed normal postoperative changes REVIEW OF SYSTEMS: All systems reviewed, pertinent positives and negatives noted in HPI. All other symptoms are negative. PHYSICAL EXAMINATION: Vitals reviewed GENERAL: No acute distress. Well developed, well nourished. HEENT: Pupils are round and equally reacting to light. EOMI. No scleral icterus. Normocephalic, atraumatic. No pharyngeal erythema. No thyromegaly. CARDIOVASCULAR: S1 and S2 present. No murmurs, rubs, or gallops. PULMONARY: Chest is clear to auscultation, no wheezing, rhonchi, or crackles. ABDOMEN: Soft, nontender, nondistended, normoactive bowel sounds. No palpable organomegaly. MUSCULOSKELETAL: No apparent joint swelling and deformities. EXTREMITIES: No apparent cyanosis, clubbing, or pedal edema. Bandage noted at the left hip, clean, with no erythema, no drainage. NEUROLOGICAL: The patient is alert and oriented x3, Gross neurological examination did not reveal any focal deficits. 5/5 strength bilateral UE and LE. SKIN: No apparent rashes. Assessment and plan Marita is a 58-year-old female with PMH of right breast cancer (s/p chemo, radiat ion and lumpectomy; maintain on anastrozole), gastric bypass surgery, hyperlipidemia, diabetes mellitus, Mediterranean thalassemia and history of DVTs (not previously on Eliquis). She presents to the hospital today for left total hip arthroplasty. She has been accepted to the internal medicine service for medical management. Chronic Medical Conditions #Diabetes mellitus, type 2 Holding oral medications; maintained at home on 500 mg metformin twice daily Begin Accu-Cheks and low-dose sliding scale, monitor for hypoglycemia #Hyperlipidemia -Maintained on 10 mg Lipitor daily #History of right breast cancer s/p chemo, radiation and lumpectomy -Maintained on anastrozole 1 mg daily -Follows with Dr. Mckeon #History of Mediterranean thalassemia -Continue to monitor CBC #History of DVTs (diagnosed at time of gastric bypass surgery) -Not maintained on Eliquis -Has IVC filter #History of gastric bypass surgeries #Left total hip arthroplasty -Pain management and DVT prophylaxis per primary surgical team F: IV normal saline 100 cc/h E: Replete as needed N: Regular diet to be resumed a.m. 03/18/2024 DVT ppx: per primary surgical team Code status: Full code Patient is stable from medical stand point Follow up CBC and CMP in AM Dictation was produced using [employer] dictation software. Please excuse any gr ammatical, word or spelling errors. I have seen and evaluated the patient today. I Discussed the case with the resident and agree with the resident's findings I edited the assessment and plan as necessary as documented in the resident's note. Past Medical History Past Medical History: Cancer, Deep Vein Thrombosis (DVT), Hyperlipidemia, Hypertension, Osteoarthritis (OA) Additional Past Medical History / Comment(s): right breast cancer- currently on chemo last tx 12/15/20 History of Any Multi-Drug Resistant Organisms: None Reported Past Surgical History: Bariatric Surgery, Breast Surgery Additional Past Surgical History / Comment(s): Sinus surgery, breast implants, Gastric Bypass 2003, right breast lumpectomy September 2020 Past Anesthesia/Blood Transfusion Reactions: No Reported Reaction Additional Past Anesthesia/Blood Transfusion Reaction / Comm: no problems w/blood transfusion Past Psychological History: No Psychological Hx Reported Smoking Status: Former smoker Past Alcohol Use History: None Reported Additional Past Alcohol Use History / Comment(s): Quit smoking in 2015, smoked for 15 yrs, 1 PPD. Past Drug Use History: None Reported - Past Family History Mother Family Medical History: No Reported History Medications and Allergies Home Medications Medication Instructions Recorded Confirmed Type Aspirin [Adult Low Dose Aspirin EC] 81 mg PO DAILY 08/03/20 03/16/24 History Atorvastatin [Lipitor] 10 mg PO DAILY 08/03/20 03/16/24 History allopurinoL [Zyloprim] 300 mg PO DAILY 08/03/20 03/16/24 History Cyanocobalamin (Vitamin B-12) 1,000 mcg PO DAILY 12/20/20 03/16/24 History [Vitamin B-12] metFORMIN HCL ER [Glucophage XR] 500 mg PO BID 12/20/20 03/16/24 History Anastrozole [Arimidex] 1 mg PO DAILY 03/16/24 03/16/24 History Biotin 5,000 mcg PO DAILY 03/16/24 03/16/24 History hydrOXYzine HCL [Hydroxyzine HCl] 25 mg PO HS 03/16/24 03/16/24 History Docusate [Colace] 100 mg PO BID #60 capsule 03/17/24 Rx Doxycycline Monohydrate [Monodox] 100 mg PO BID 14 Days #28 cap 03/17/24 Rx HYDROcodone/APAP 5-325MG [[place] 5] 1 - 2 each PO Q6HR PRN #48 tab 03/17/24 Rx Omeprazole 20 mg PO DAILY #30 tab 03/17/24 Rx Ondansetron [Zofran] 4 mg PO Q6HR PRN #30 tab 03/17/24 Rx Rivaroxaban [Xarelto] 10 mg PO DAILY #30 tab 03/17/24 Rx Allergies Allergy/AdvReac Type Severity Reaction Status Date / Time Penicillins Allergy Severe Rash/Hives Verified 03/16/24 08:36 Physical Exam Vitals: Vital Signs Temp Pulse Pulse Pulse Resp BP BP 03/17/24 19:30 97.7 F 88 20 135/83 03/17/24 17:33 80 120/81 03/17/24 17:18 80 117/77 03/17/24 17:03 82 113/78 03/17/24 16:48 84 120/78 03/17/24 16:33 82 123/81 03/17/24 16:18 74 120/78 03/17/24 16:03 80 119/81 03/17/24 15:48 72 121/79 03/17/24 15:33 76 135/83 03/17/24 14:36 74 16 105/62 03/17/24 14:31 72 16 94/53 03/17/24 14:16 72 16 89/52 03/17/24 14:01 98.2 F 87 16 89/53 03/17/24 11:23 53 L 16 141/77 03/17/24 10:50 97.9 F 54 L 16 152/70 Pulse Ox 03/17/24 19:30 98 03/17/24 17:33 96 03/17/24 17:18 95 03/17/24 17:03 96 03/17/24 16:48 96 03/17/24 16:33 95 03/17/24 16:18 96 03/17/24 16:03 98 03/17/24 15:48 97 03/17/24 15:33 96 03/17/24 14:36 97 03/17/24 14:31 97 03/17/24 14:16 97 03/17/24 14:01 95 03/17/24 11:23 100 03/17/24 10:50 99 Intake and Output 03/17/24 03/17/24 03/17/24 06:59 14:59 22:59 Intake Total 1251 Output Total 200 Balance 1051 Intake: IV 1251 Output: Estimated Blood Loss 200 Other: # Voids 0 Weight 80.1 kg 80.1 kg Results CBC & Chem 7: 03/17/24 20:47 Labs: Abnormal Lab Results - Last 24 Hours (Table) 03/17/24 Range/Units 10:57 POC Glucose (mg/dL) 122 H (70-110) mg/dL
[2024-03-17 20:56] LABS: Anisocytosis Slight; Basophils % (A) 0 %; Eosinophils % (A) 0 %; HCT 26.4 % (34.0-46.0); HGB 8.1 gm/dL (11.4-16.0); Hypochromasia Marked; Lymphocytes # (A) 0.7 k/uL (1.0-4.8); Lymphocytes % (A) 7 %; MCH 20.6 pg (25.0-35.0); MCHC 30.6 g/dL (31.0-37.0); MCV 67.4 fL (80.0-100.0); Mean Platelet Volume 8.8; Microcytosis Marked; Monocytes # (A) 0.1 k/uL (0-1.0); Monocytes % (A) 1 %; Neutrophils # (A) 8.8 k/uL (1.3-7.7); Neutrophils % (A) 91 %; Platelet Count 167 k/uL (150-450); Poikilocytosis Slight; RBC 3.91 m/uL (3.80-5.40); RDW 16.8 % (11.5-15.5); WBC 9.7 k/uL (3.8-10.6)
[2024-03-17 21:28] LABS: Glucose,Whole Blood 314 mg/dL (70-110)
[2024-03-17] MEDS: INSULIN ASPART (NovoLOG) 100 UNIT/ML VIAL SQ SCH (21:39)
[2024-03-17] MEDS: DOXYCYCLINE 100 MG CAP PO SCH (21:45)
[2024-03-17] MEDS: SENNOSIDES-DOCUSATE SODIUM 1 EACH TAB PO SCH (21:45)
[2024-03-18 06:32] LABS: Glucose,Whole Blood 179 mg/dL (70-110)
--- NOTE | 2024-03-18 08:32 | P.PN ---
Subjective Progress Note Date: 03/18/24 The patient was seen at bedside this morning. Her chart was reviewed and I discussed events the last 12 hours with nursing. Patient had a 1 minute episode of being unresponsive. She was evaluated by internal medicine who ordered labs. She has not had a similar episode since. This morning she is doing relatively well though she feels nauseated. She has mild pain in the left hip. She denies chest pain or shortness of breath. Objective - Vital Signs Vital signs: Vital Signs Temp 97.6 F 03/18/24 00:48 Pulse 75 03/18/24 00:48 Resp 18 03/18/24 00:48 BP 136/61 03/18/24 00:48 Pulse Ox 92 L 03/18/24 00:48 FiO2 Intake & Output 03/17/24 03/18/24 03/18/24 18:59 06:59 18:59 Intake Total 1251 480 Output Total 200 Balance 1051 480 Weight 80.1 kg Intake: IV 1251 Oral 480 Output: Estimated Blood Loss 200 Other: Voiding Method Toilet # Voids 0 3 # Emeses 1 - Exam The patient is resting comfortably in their bed. A focused examination of the operative hip was performed. On inspection there is a clean-appearing dressing over the anterior hip with no drainage or strike through. There is mild swelling throughout the thigh. Femoral nerve function is intact. The patient is able to actively dorsiflex and plantarflex their ankle and toes. Sensation is intact to light touch throughout the foot. The foot is warm and well-perfused with brisk capillary refill. - Labs CBC & Chem 7: 03/17/24 20:47 Labs: Abnormal Lab Results - Last 24 Hours (Table) 03/17/24 03/17/24 03/17/24 Range/Units 10:57 20:47 21:26 Hgb 8.1 L (11.4-16.0) gm/dL Hct 26.4 L (34.0-46.0) % MCV 67.4 L (80.0-100.0) fL MCH 20.6 L (25.0-35.0) pg MCHC 30.6 L (31.0-37.0) g/dL RDW 16.8 H (11.5-15.5) % Neutrophils # 8.8 H (1.3-7.7) k/uL Lymphocytes # 0.7 L (1.0-4.8) k/uL POC Glucose (mg/dL) 122 H 314 H (70-110) mg/dL 03/18/24 Range/Units 06:31 Hgb (11.4-16.0) gm/dL Hct (34.0-46.0) % MCV (80.0-100.0) fL MCH (25.0-35.0) pg MCHC (31.0-37.0) g/dL RDW (11.5-15.5) % Neutrophils # (1.3-7.7) k/uL Lymphocytes # (1.0-4.8) k/uL POC Glucose (mg/dL) 179 H (70-110) mg/dL Assessment and Plan Assessment: Postoperative day #1 status post left direct anterior total hip arthroplasty Chronic anemia History of DVT and PE Type 2 diabetes Plan: 1. Weight bear as tolerated on the operative extremity, up with assistance and a walker 2. DVT prophylaxis with xarelto given her history of DVT 3. 2 doses of post operative antibiotics followed by doxycycline 100 mg BID until her incision heals 4. Leave surgical dressing in place 5. Internal medicine for lainey-operative medical management 6. Physical therapy for gait training and mobilization 7. Dispo: I would like to keep the patient an additional 24 hours for observation given her episode of unreponsiveness. If she is better tomorrow and medically stable, we will plan on d/c home with home health.
[2024-03-18] MEDS: RIVAROXABAN 10 MG TAB PO SCH (08:41)
[2024-03-18] MEDS: ANASTROZOLE 1 MG TAB PO SCH (08:41)
[2024-03-18] MEDS: ATORVASTATIN 10 MG TAB PO SCH (08:41)
[2024-03-18] MEDS: FAMOTIDINE 20 MG TAB PO SCH (08:41)
[2024-03-18 08:47] LABS: Anisocytosis Slight; Basophils % (A) 0 %; Eosinophils % (A) 0 %; HCT 23.5 % (34.0-46.0); HGB 7.3 gm/dL (11.4-16.0); Hypochromasia Moderate; Lymphocytes # (A) 1.1 k/uL (1.0-4.8); Lymphocytes % (A) 8 %; MCH 20.4 pg (25.0-35.0); MCHC 30.9 g/dL (31.0-37.0); MCV 65.9 fL (80.0-100.0); Mean Platelet Volume 7.8; Microcytosis Marked; Monocytes # (A) 0.8 k/uL (0-1.0); Monocytes % (A) 5 %; Neutrophils # (A) 12.1 k/uL (1.3-7.7); Neutrophils % (A) 86 %; Platelet Count 186 k/uL (150-450); Poikilocytosis Slight; RBC 3.57 m/uL (3.80-5.40); WBC 14.1 k/uL (3.8-10.6)
[2024-03-18 10:17] LABS: African American GFR (CKD) >90 (>60 ml/min/1.73 sqM); Anion Gap 8 mmol/L; Blood Urea Nitrogen 12 mg/dL (7-17); Calcium 8.4 mg/dL (8.4-10.2); Carbon Dioxide 20 mmol/L (22-30); Chloride 111 mmol/L (98-107); Glucose 138 mg/dL (74-99); Magnesium 1.5 mg/dL (1.6-2.3); Non-African American GFR(CKD) >90 (>60 ml/min/1.73 sqM); Potassium 4.2 mmol/L (3.5-5.1); Sodium 139 mmol/L (137-145)
[2024-03-18] MEDS: ACETAMINOPHEN TAB 325 MG TAB PO PRN (11:08)
[2024-03-18] MEDS: INSULIN DETEMIR (LEVEMIR) 100 UNIT/ML SYR SQ ONE (11:08)
[2024-03-18] MEDS: allopurinoL 300 MG TAB PO SCH (11:09)
[2024-03-18 12:06] LABS: Glucose,Whole Blood 189 mg/dL (70-110)
--- NOTE | 2024-03-18 12:27 | P.PN ---
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 She presents to the hospital today for left total hip arthroplasty. At the time of the interview, patient sitting comfortably in bed with no acute complaints. At the time of the interview she reports absence of fever, chills, weight loss, chest pain, palpitations, diaphoresis, dyspnea, cough, nausea, vomiting, constipation, diarrhea, abdominal pain, weakness, myalgia, dizziness, headache, and dysuria. Internal medicine was consulted for medical management. After leaving the room was notified by the nursing staff that when the patient got up to use the restroom, she was "too dizzy" to return back so she was returned to her bed in her chair. At that time she went unresponsive for a moment, BP 169/127 with a heart rate of 111, per the nursing staff episode was 30 seconds - 1 minute. Patient felt nausea at that time and took oral Zofran as was ordered. It is reported that she spit up a bit of "brown stuff", she returned to bed however still feels some nausea at this time blood pressure 148/60, heart rate 80. Initial lab workup prior to the surgery (from 03/08/2024) showed: -hemoglobin 9.9, hematocrit 32.2, MCV 65.3, platelet 238; sodium 141, potassium 4.1, BUN 13.4, creatinine 0.8; hemoglobin A1c 7.6, AST 50, ALT 52 -Repeat CBC ordered (secondary to incident reported above) currently pending Imaging: Hip x-ray showed normal postoperative changes 03/18/2024 patient seen and examined at bedside. Overnight patient was noted to have an episode of fainting as she was walking to the bathroom. Vitals taken at the time were 167/127 with a heart rate of 111. There was an associated nausea and she was given Zofran. Patient did not have recurring episodes of fainting. On assessment today, she still feels nauseated and dizzy trying to sit up. She has not ambulated or passed flatus or had a bowel movement. She has been able to urinate on a commode. WBC 14.1 hemoglobin 7.3 platelet count 1 86,000 sodium 139 potassium 4.2 chloride 111 bicarb 20 BUN 12 creatinine 0.7 glucose 138 calcium 8.4 magnesium 1.5 Review of systems: Pertinent positives and negatives as discussed in HPI, a complete review of systems was performed and all other systems are negative. Pertinent imaging and labs reviewed. Physical examination: Vital signs reviewed General: non toxic, no distress, appears at stated age Derm: no unusual rashes/lesions, warm Head: atraumatic, normocephalic, symmetric Eyes: EOMI, anicteric sclera, pupils equal round reactive to light ENT: Nose and ears atraumatic Neck: No cervical lymphadenopathy, trachea midline, supple Mouth: no lip lesion, mucus membranes moist Cardiovascular: S1S2 reg, no murmur Lungs: CTA bilateral, no rhonchi, no rales, no accessory muscle use Abdominal: soft, nontender to palpation, no guarding Ext: muscle strength 5 out of 5 in all 4 extremities grossly, no gross muscle atrophy, no contractures, positive dorsalis pedis pulse bilateral, no extremity edema Neuro: CN II-XI grossly intact, no gross focal neuro deficits Psych: Alert and oriented x3, appropriate affect and mood Assessment/Plan: Marita is a 58-year-old female with PMH of right breast cancer (s/p chemo, radiation and lumpectomy; maintain on anastrozole), gastric bypass surgery, h yperlipidemia, diabetes mellitus, Mediterranean thalassemia and history of DVTs (not previously on Eliquis). She presents to the hospital today for left total hip arthroplasty. She has been accepted to the internal medicine service for medical management. Chronic Medical Conditions #Presyncope secondary to neurogenic orthostasis #Acute on chronic anemia secondary to blood loss #History of Mediterranean thalassemia -Blood loss estimated during procedure was 200 cc -Placed on telemetry -Fall precautions -Continue to monitor CBC. Consider transfusion if hemoglobin drops to 7 -Continue with IV normal saline 0.9% at 100 cc/h #Hypomagnesemia Magnesium 1.5 -Will monitor for now #Diabetes mellitus, type 2 Holding oral medications; maintained at home on 500 mg metformin twice daily Begin Accu-Cheks and low-dose sliding scale, monitor for hypoglycemia -Levemir 10 units subcu once now then daily in the morning #Hyperlipidemia -Maintained on 10 mg Lipitor daily #History of right breast cancer s/p chemo, radiation and lumpectomy -Maintained on anastrozole 1 mg daily -Follows with Dr. Mckeon #History of DVTs (diagnosed at time of gastric bypass surgery) -Not maintained on Eliquis -Has IVC filter #History of gastric bypass surgeries #Left total hip arthroplasty -Pain management and DVT prophylaxis per primary surgical team F: IV normal saline 100 cc/h E: Replete as needed N: Regular diet DVT ppx: per primary surgical team Code status: Full code Patient is stable from medical stand point Follow up CBC and CMP in AM Danitza Infante MD PGY-1/House Moving Supervisor Dictation was produced using [employer] dictation software. please excuse any grammatical, word or spelling errors. Thank you for allowing us to participate in the care of this pleasant patient. Do not hesitate to contact us with questions. Someone can be reached from the [facility] hospitalist group all hours of the day at [phone] or via [email or web address]. I have seen and evaluated the patient today. Discussed with the resident and agree with the residents finding and plan as documented in the resident's note. Changes highlighted in blue font. Objective - Vital Signs Vital signs: Vital Signs Temp 97.6 F 03/18/24 00:48 Pulse 75 03/18/24 00:48 Resp 18 03/18/24 00:48 BP 136/61 03/18/24 00:48 Pulse Ox 92 L 03/18/24 00:48 FiO2 Intake & Output 03/17/24 03/18/24 03/18/24 18:59 06:59 18:59 Intake Total 1251 480 Output Total 200 Balance 1051 480 Weight 80.1 kg Intake: IV 1251 Oral 480 Output: Estimated Blood Loss 200 Other: Voiding Method Toilet # Voids 0 3 # Emeses 1 - Labs CBC & Chem 7: 03/18/24 07:54 03/18/24 07:54 Labs: Abnormal Lab Results - Last 24 Hours (Table) 03/17/24 03/17/24 03/17/24 Range/Units 10:57 20:47 21:26 Hgb 8.1 L (11.4-16.0) gm/dL Hct 26.4 L (34.0-46.0) % MCV 67.4 L (80.0-100.0) fL MCH 20.6 L (25.0-35.0) pg MCHC 30.6 L (31.0-37.0) g/dL RDW 16.8 H (11.5-15.5) % Neutrophils # 8.8 H (1.3-7.7) k/uL Lymphocytes # 0.7 L (1.0-4.8) k/uL POC Glucose (mg/dL) 122 H 314 H (70-110) mg/dL 03/18/24 Range/Units 06:31 Hgb (11.4-16.0) gm/dL Hct (34.0-46.0) % MCV (80.0-100.0) fL MCH (25.0-35.0) pg MCHC (31.0-37.0) g/dL RDW (11.5-15.5) % Neutrophils # (1.3-7.7) k/uL Lymphocytes # (1.0-4.8) k/uL POC Glucose (mg/dL) 179 H (70-110) mg/dL
[2024-03-18 16:57] LABS: Glucose,Whole Blood 138 mg/dL (70-110)
[2024-03-18] MEDS: Acetaminophen-Codeine 300-30mg TAB PO PRN (17:00)
[2024-03-18 21:30] LABS: Glucose,Whole Blood 229 mg/dL (70-110)
[2024-03-18] MEDS: hydrOXYzine pamoate 25 MG CAP PO PRN (21:45)
[2024-03-19 06:18] LABS: Glucose,Whole Blood 144 mg/dL (70-110)
[2024-03-19] MEDS: INSULIN DETEMIR (LEVEMIR) 100 UNIT/ML SYR SQ SCH (06:52)
--- NOTE | 2024-03-19 10:20 | P.PN ---
Subjective Progress Note Date: 03/19/24 Patient was examined at bedside this morning. Spoke to nursing staff, no acute events overnight. Spoke with patient no acute events overnight. Physical therapy came to work with patient and patient felt tired and weak. Patient states they have pain in the left hip. Patient states they cannot take [place] or tramadol or NSAIDs due to nausea and history of gastric bypass surgery. They are taking Tylenol 3. Objective - Vital Signs Vital signs: Vital Signs Temp 98.4 F 03/19/24 07:37 Pulse 88 03/19/24 07:37 Resp 18 03/19/24 07:37 BP 115/66 03/19/24 07:37 Pulse Ox 97 03/19/24 07:37 FiO2 Intake & Output 03/18/24 03/19/24 03/19/24 18:59 06:59 18:59 Other: Voiding Method Toilet # Voids 3 - Exam Patient was examined at bedside. Patient is resting comfortably in bed. No apparent distress. They are awake, alert and able to answer questions. On inspection the left surgical hip dressing is intact, there is no drainage or strikethrough. The skin surrounding the dressing is free of erythema. There is mild swelling in the operative thigh. Operative femoral nerve function is intact. The operative calf is soft. The operative the patient is able to actively plantarflex and dorsiflex their operative ankle and toes. Their operative foot appears well perfused with capillary refill under 2 seconds. - Labs CBC & Chem 7: 03/18/24 07:54 03/18/24 07:54 Labs: Abnormal Lab Results - Last 24 Hours (Table) 03/18/24 03/18/24 03/18/24 Range/Units 07:54 12:04 16:54 Chloride 111 H (98-107) mmol/L Carbon Dioxide 20 L (22-30) mmol/L Glucose 138 H (74-99) mg/dL POC Glucose (mg/dL) 189 H 138 H (70-110) mg/dL Magnesium 1.5 L (1.6-2.3) mg/dL 03/18/24 03/19/24 Range/Units 21:28 06:17 Chloride (98-107) mmol/L Carbon Dioxide (22-30) mmol/L Glucose (74-99) mg/dL POC Glucose (mg/dL) 229 H 144 H (70-110) mg/dL Magnesium (1.6-2.3) mg/dL Assessment and Plan Assessment: Postoperative day #2 status post left direct anterior total hip arthroplasty Chronic anemia History of DVT and PE Type 2 diabetes Plan: 1. Weight bear as tolerated on the operative extremity, up with assistance and a walker 2. DVT prophylaxis with xarelto given her history of DVT 3. 2 doses of post operative antibiotics followed by doxycycline 100 mg BID until her incision heals 4. Leave surgical dressing in place 5. Internal medicine for lainey-operative medical management 6. Physical therapy for gait training and mobilization 7. Dispo: Patient continues to be tired and weak, was unable to work very much with physical therapy today, plan staying at least until tomorrow. At time of discharge patient would like to go home with her and home health care if able.
[2024-03-19] MEDS ORDERED: CYCLOBENZAPRINE 5 MG TAB PO PRN (10:31)
[2024-03-19 10:36] LABS: Anisocytosis Slight; Basophils % (A) 0 %; Eosinophils % (A) 0 %; Hypochromasia Marked; Lymphocytes % (A) 19 %; MCH 20.8 pg (25.0-35.0); MCHC 30.8 g/dL (31.0-37.0); MCV 67.6 fL (80.0-100.0); Mean Platelet Volume 8.3; Microcytosis Marked; Monocytes # (A) 0.8 k/uL (0-1.0); Monocytes % (A) 8 %; Neutrophils # (A) 7.4 k/uL (1.3-7.7); Neutrophils % (A) 70 %; Platelet Count 169 k/uL (150-450); Poikilocytosis Slight; RBC 3.26 m/uL (3.80-5.40); RDW 17.3 % (11.5-15.5); WBC 10.4 k/uL (3.8-10.6)
[2024-03-19 10:45] LABS: HGB 6.8 gm/dL (11.4-16.0)
[2024-03-19 11:30] LABS: Glucose,Whole Blood 195 mg/dL (70-110)
[2024-03-19 11:36] LABS: ALT 32 U/L (8-44); AST 38 U/L (13-35); Albumin 3.6 g/dL (3.8-4.9); Albumin/Globulin Ratio 1.64 Ratio (1.60-3.17); Alkaline Phosphatase 87 U/L (41-126); BUN/Creat Ratio 14.71 Ratio (12.00-20.00); Blood Urea Nitrogen 10.3 mg/dL (9.0-27.0); Calcium 8.5 mg/dL (8.7-10.3); Carbon Dioxide 19.7 mmol/L (21.6-31.8); Chloride 109 mmol/L (96-109); Globulin 2.2 g/dL (1.6-3.3); Glucose 118 mg/dL (70-110); Magnesium 1.6 mg/dL (1.5-2.4); Sodium 142 mmol/L (135-145); Total Bilirubin 0.4 mg/dL (0.3-1.2); Total Protein 5.8 g/dL (6.2-8.2)
[2024-03-19 12:47] LABS: Anisocytosis Slight; Basophils % (A) 0 %; Eosinophils % (A) 0 %; HCT 20.5 % (34.0-46.0); Hypochromasia Moderate; Lymphocytes # (A) 1.8 k/uL (1.0-4.8); Lymphocytes % (A) 22 %; MCH 20.9 pg (25.0-35.0); MCHC 31.3 g/dL (31.0-37.0); MCV 66.8 fL (80.0-100.0); Mean Platelet Volume 7.4; Microcytosis Marked; Monocytes # (A) 0.5 k/uL (0-1.0); Monocytes % (A) 7 %; Neutrophils # (A) 5.5 k/uL (1.3-7.7); Neutrophils % (A) 69 %; Platelet Count 154 k/uL (150-450); Poikilocytosis Slight; RBC 3.07 m/uL (3.80-5.40); RDW 17.4 % (11.5-15.5)
[2024-03-19] MEDS: INSULIN ASPART (NovoLOG) 100 UNIT/ML VIAL SQ SCH (12:48)
[2024-03-19 13:16] LABS: HGB 6.4 gm/dL (11.4-16.0)
--- NOTE | 2024-03-19 13:30 | P.PN ---
Subjective Progress Note Date: 03/19/24 58-year-old female with a PMH of right breast cancer (s/p chemo, radiation and lumpectomy; maintained on anastrozole), gastric bypass surgery, hyperlipidemia, diabetes mellitus, Mediterranean thalassemia and a history of DVTs (not previously on Eliquis). She presents to the hospital today for left total hip arthroplasty. At the time of the interview, patient sitting comfortably in bed with no acute complaints. At the time of the interview she reports absence of fever, chills, weight loss, chest pain, palpitations, diaphoresis, dyspnea, cough, nausea, vomiting, constipation, diarrhea, abdominal pain, weakness, myalgia, dizziness, headache, and dysuria. Internal medicine was consulted for medical management. After leaving the room was notified by the nursing staff that when the patient got up to use the restroom, she was "too dizzy" to return back so she was returned to her bed in her chair. At that time she went unresponsive for a moment, BP 169/127 with a heart rate of 111, per the nursing staff episode was 30 seconds - 1 minute. Patient felt nausea at that time and took oral Zofran as was ordered. It is reported that she spit up a bit of "brown stuff", she returned to bed however still feels some nausea at this time blood pressure 148/60, heart rate 80. Initial lab workup prior to the surgery (from 03/08/2024) showed: -hemoglobin 9.9, hematocrit 32.2, MCV 65.3, platelet 238; sodium 141, potassium 4.1, BUN 13.4, creatinine 0.8; hemoglobin A1c 7.6, AST 50, ALT 52 -Repeat CBC ordered (secondary to incident reported above) currently pending Imaging: Hip x-ray showed normal postoperative changes 03/18/2024 patient seen and examined at bedside. Overnight patient was noted to have an episode of fainting as she was walking to the bathroom. Vitals taken at the time were 167/127 with a heart rate of 111. There was an associated nausea and she was given Zofran. Patient did not have recurring episodes of fainting. On assessment today, she still feels nauseated and dizzy trying to sit up. She has not ambulated or passed flatus or had a bowel movement. She has been able to urinate on a commode. WBC 14.1 hemoglobin 7.3 platelet count 1 86,000 sodium 139 potassium 4.2 chloride 111 bicarb 20 BUN 12 creatinine 0.7 glucose 138 calcium 8.4 magnesium 1.5 03/19/2024 patient seen and examined at bedside. Patient reported that her pain is moderately controlled with oral pain medication. She she also reported that she is feeling lightheaded and fatigued to the point that she cannot walk around the room. She has not been able to have a bowel movement yet but she has experienced flatus and is able to urinate in the commode. She denies nausea, dizziness, chest pain, palpitations, shortness of breath, calf tenderness, tremors, or focal weakness. WBC 10.4 hemoglobin 6.8 MCV 67 platelet count 1 69,000 sodium 142 potassium 4 chloride 109 bicarb 19.7 BUN 10.3 creatinine 0.7 glucose 118 calcium 8.5 AST 38 ALT 32 albumin 3.6 magnesium 1.6 Review of systems: Pertinent positives and negatives as discussed in HPI, a complete review of systems was performed and all other systems are negative. Pertinent imaging and labs reviewed. Physical examination: Vital signs reviewed General: non toxic, no distress, appears fatigued Derm: no unusual rashes/lesions, warm, dressing noted at the left hip, clean and dry, with no erythema, no drainage. Head: atraumatic, normocephalic, symmetric Eyes: EOMI, anicteric sclera, pupils equal round reactive to light ENT: Nose and ears atraumatic Neck: No cervical lymphadenopathy, trachea midline, supple Mouth: no lip lesion, mucus membranes moist Cardiovascular: S1S2 reg, no murmur Lungs: CTA bilateral, no rhonchi, no rales, no accessory muscle use Abdominal: soft, nontender to palpation, no guarding Ext: muscle strength 5 out of 5 in all 4 extremities grossly, no gross muscle atrophy, no contractures, positive dorsalis pedis pulse bilateral, no extremity edema Neuro: CN II-XI grossly intact, no gross focal neuro deficits Psych: Alert and oriented x3, appropriate affect and mood Assessment/Plan: Marita is a 58-year-old female with PMH of right breast cancer (s/p chemo, radiation and lumpectomy; maintain on anastrozole), gastric bypass surgery, hyperlipidemia, diabetes mellitus, Mediterranean thalassemia and history of DVTs (not previously on Eliquis). She presents to the hospital today for left total hip arthroplasty. She has been accepted to the internal medicine service for medical management. Chronic Medical Conditions #Presyncope secondary to neurogenic orthostasis, improved #Acute on chronic anemia secondary to blood loss #History of Mediterranean thalassemia -Blood loss estimated during procedure was 200 cc -Placed on telemetry -Fall precautions -Continue to monitor CBC -Hemoglobin today 6.8. Transfuse 1 unit packed RBC. Repeat CBC posttransfusion -Continue with IV normal saline 0.9% at 100 cc/h #Hypomagnesemia Magnesium 1.6 -Will monitor for now #Diabetes mellitus, type 2 Holding oral medications; maintained at home on 500 mg metformin twice daily Begin Accu-Cheks and low-dose sliding scale, monitor for hypoglycemia -NovoLog 2 units ACHS -Levemir 10 units subcu daily in the morning #Hyperlipidemia -Maintained on 10 mg Lipitor daily #History of right breast cancer s/p chemo, radiation and lumpectomy -Maintained on anastrozole 1 mg daily -Follows with Dr. Mckeon #History of DVTs (diagnosed at time of gastric bypass surgery) -Not maintained on Eliquis -Has IVC filter #History of gastric bypass surgeries #Left total hip arthroplasty -Pain management and DVT prophylaxis per primary surgical team F: IV normal saline 100 cc/h E: Replete as needed N: Regular diet DVT ppx: per primary surgical team Code status: Full code Danitza Infante MD PGY-1/Sample Case Porter Dictation was produced using [employer] dictation software. please excuse any grammatical, word or spelling errors. I saw and evaluated the patient during the taylor and critical portions of this encounter, and discussed the case in detail with the resident author of this note, I agree with the Assessment and Plan, and my changes, if any, are highlighted in blue. Objective - Vital Signs Vital signs: Vital Signs Temp 98.4 F 03/19/24 07:37 Pulse 88 03/19/24 07:37 Resp 18 03/19/24 07:37 BP 115/66 03/19/24 07:37 Pulse Ox 97 03/19/24 07:37 FiO2 Intake & Output 03/18/24 03/19/24 03/19/24 18:59 06:59 18:59 Other: Voiding Method Toilet # Voids 3 - Labs CBC & Chem 7: 03/19/24 12:13 03/19/24 03:01 Labs: Abnormal Lab Results - Last 24 Hours (Table) 03/18/24 03/18/24 03/18/24 Range/Units 07:54 12:04 16:54 Chloride 111 H (98-107) mmol/L Carbon Dioxide 20 L (22-30) mmol/L Glucose 138 H (74-99) mg/dL POC Glucose (mg/dL) 189 H 138 H (70-110) mg/dL Magnesium 1.5 L (1.6-2.3) mg/dL 03/18/24 03/19/24 Range/Units 21:28 06:17 Chloride (98-107) mmol/L Carbon Dioxide (22-30) mmol/L Glucose (74-99) mg/dL POC Glucose (mg/dL) 229 H 144 H (70-110) mg/dL Magnesium (1.6-2.3) mg/dL
[2024-03-19 16:33] LABS: Glucose,Whole Blood 136 mg/dL (70-110)
[2024-03-19 19:32] LABS: Anisocytosis Slight; Basophils % (A) 0 %; Eosinophils % (A) 0 %; HGB 7.5 gm/dL (11.4-16.0); Hypochromasia Moderate; Lymphocytes # (A) 2.7 k/uL (1.0-4.8); Lymphocytes % (A) 26 %; MCH 22.2 pg (25.0-35.0); MCHC 32.4 g/dL (31.0-37.0); MCV 68.6 fL (80.0-100.0); Mean Platelet Volume 7.6; Microcytosis Marked; Monocytes # (A) 0.8 k/uL (0-1.0); Monocytes % (A) 8 %; Neutrophils # (A) 6.5 k/uL (1.3-7.7); Neutrophils % (A) 63 %; Platelet Count 141 k/uL (150-450); Poikilocytosis Moderate; RBC 3.36 m/uL (3.80-5.40); RDW 18.8 % (11.5-15.5); WBC 10.4 k/uL (3.8-10.6)
[2024-03-19 21:40] LABS: Glucose,Whole Blood 163 mg/dL (70-110)
[2024-03-20 06:26] LABS: Glucose,Whole Blood 124 mg/dL (70-110)
[2024-03-20 09:37] LABS: Basophils # (A) 0.06 X 10*3/uL (0.00-0.10); Basophils % (A) 0.6 %; Eosinophils # (A) 0.01 X 10*3/uL (0.04-0.35); Eosinophils % (A) 0.1 %; HCT 22.3 % (37.2-46.3); Lymphocytes # (A) 2.23 X 10*3/uL (0.90-5.00); Lymphocytes % (A) 24.1 %; MCH 21.4 pg (27.0-32.0); MCHC 31.4 g/dL (32.0-37.0); MCV 68.2 FL (80.0-97.0); Monocytes # (A) 1.13 X 10*3/uL (0.20-1.00); Monocytes % (A) 12.2 %; NRBC Per 100 WBC 0 X 10*3/uL (0.00-0.01); Neutrophils # (A) 5.78 X 10*3/uL (1.80-7.70); Neutrophils % (A) 62.7 %; Platelet Count 163 X 10*3/uL (140-440); RBC 3.27 X 10*6/uL (4.10-5.20); RDW 18.6 % (11.5-14.5); WBC 9.24 X 10*3/uL (4.50-10.00)
--- NOTE | 2024-03-20 09:39 | P.PN ---
Subjective Progress Note Date: 03/20/24 Once the last 24 hours noted. The patient had hemoglobin of 6.8 yesterday and was transfused 1 unit of packed red cells. Overnight the patient did well. Her pain is improved. She had a difficult time finding pain medications that don't make her nauseated. Tylenol with Codeine seems to work. Her pain is improved this morning. She denies chest pain or shortness of breath. She denies feeling lightheaded or having palpitations. Objective - Vital Signs Vital signs: Vital Signs Temp 99.2 F 03/20/24 07:41 Pulse 75 03/20/24 07:41 Resp 16 03/20/24 07:41 BP 112/72 03/20/24 07:41 Pulse Ox 97 03/20/24 07:41 FiO2 Intake & Output 03/19/24 03/20/24 03/20/24 18:59 06:59 18:59 Intake Total 285 540 Balance 285 540 Intake: Oral 540 Blood Product 285 Rc Pheresis As-3 Unit 285 [id number] Other: Voiding Method Toilet Toilet Bedside Commode Bedside Commode # Voids 3 3 - Exam Patient is resting comfortably in bed. She is alert and able to answer questions. Focused exam of the left hip was conducted. The dressing is intact with no drainage or strike through. Her thigh is soft and compressible. There are no signs of bleeding. Femoral nerve function is intact. The patient is able to actively plantar flex and dorsiflex her ankle and her toes. - Labs CBC & Chem 7: 03/19/24 19:10 03/19/24 03:01 Labs: Abnormal Lab Results - Last 24 Hours (Table) 03/19/24 03/19/24 03/19/24 Range/Units 03:01 03:01 11:28 RBC 3.26 L (3.80-5.40) m/uL Hgb 6.8 L* (11.4-16.0) gm/dL Hct 22.0 L (34.0-46.0) % MCV 67.6 L (80.0-100.0) fL MCH 20.8 L (25.0-35.0) pg MCHC 30.8 L (31.0-37.0) g/dL RDW 17.3 H (11.5-15.5) % Plt Count (150-450) k/uL Carbon Dioxide 19.7 L (21.6-31.8) mmol/L Anion Gap 13.30 H (4.00-12.00) mmol/L Glucose 118 H (70-110) mg/dL POC Glucose (mg/dL) 195 H (70-110) mg/dL Calcium 8.5 L (8.7-10.3) mg/dL AST 38 H (13-35) U/L Total Protein 5.8 L (6.2-8.2) g/dL Albumin 3.6 L (3.8-4.9) g/dL Crossmatch 03/19/24 03/19/24 03/19/24 Range/Units 12:13 12:16 16:32 RBC 3.07 L (3.80-5.40) m/uL Hgb 6.4 L* (11.4-16.0) gm/dL Hct 20.5 L (34.0-46.0) % MCV 66.8 L (80.0-100.0) fL MCH 20.9 L (25.0-35.0) pg MCHC (31.0-37.0) g/dL RDW 17.4 H (11.5-15.5) % Plt Count (150-450) k/uL Carbon Dioxide (21.6-31.8) mmol/L Anion Gap (4.00-12.00) mmol/L Glucose (70-110) mg/dL POC Glucose (mg/dL) 136 H (70-110) mg/dL Calcium (8.7-10.3) mg/dL AST (13-35) U/L Total Protein (6.2-8.2) g/dL Albumin (3.8-4.9) g/dL Crossmatch See Detail 03/19/24 03/19/24 03/20/24 Range/Units 19:10 21:38 06:24 RBC 3.36 L (3.80-5.40) m/uL Hgb 7.5 L (11.4-16.0) gm/dL Hct 23.0 L (34.0-46.0) % MCV 68.6 L (80.0-100.0) fL MCH 22.2 L (25.0-35.0) pg MCHC (31.0-37.0) g/dL RDW 18.8 H (11.5-15.5) % Plt Count 141 L (150-450) k/uL Carbon Dioxide (21.6-31.8) mmol/L Anion Gap (4.00-12.00) mmol/L Glucose (70-110) mg/dL POC Glucose (mg/dL) 163 H 124 H (70-110) mg/dL Calcium (8.7-10.3) mg/dL AST (13-35) U/L Total Protein (6.2-8.2) g/dL Albumin (3.8-4.9) g/dL Crossmatch Assessment and Plan Assessment: Postoperative day #3 status post left direct anterior total hip arthroplasty Chronic anemia with preoperative hemoglobin of 9.9 Transfusion of packed red cells Type 2 diabetes Thalassemia History DVT and PE History of breast cancer Plan: Patient is doing better this morning. Her postoperative course was not unexpected given her multiple medical problems and chronic anemia. Her pain is improved and Tylenol with Codeine. We'll plan on keeping her in additional 24- 48 hours for observation and continued work with therapy. Anticipate discharge home on Friday. Time with Patient: Greater than 30
[2024-03-20 09:40] LABS: Blood Urea Nitrogen 7.2 mg/dL (9.0-27.0); Calcium 8.1 mg/dL (8.7-10.3); Carbon Dioxide 22.6 mmol/L (21.6-31.8); Chloride 110 mmol/L (96-109); Glucose 127 mg/dL (70-110); Potassium 3.8 mmol/L (3.5-5.5); Sodium 142 mmol/L (135-145)
[2024-03-20 11:42] LABS: Glucose,Whole Blood 209 mg/dL (70-110)
--- NOTE | 2024-03-20 12:31 | P.PN ---
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 She presents to the hospital today for left total hip arthroplasty. At the time of the interview, patient sitting comfortably in bed with no acute complaints. At the time of the interview she reports absence of fever, chills, weight loss, chest pain, palpitations, diaphoresis, dyspnea, cough, nausea, vomiting, constipation, diarrhea, abdominal pain, weakness, myalgia, dizziness, headache, and dysuria. Internal medicine was consulted for medical management. After leaving the room was notified by the nursing staff that when the patient got up to use the restroom, she was "too dizzy" to return back so she was returned to her bed in her chair. At that time she went unresponsive for a moment, BP 169/127 with a heart rate of 111, per the nursing staff episode was 30 seconds - 1 minute. Patient felt nausea at that time and took oral Zofran as was ordered. It is reported that she spit up a bit of "brown stuff", she returned to bed however still feels some nausea at this time blood pressure 148/60, heart rate 80. Initial lab workup prior to the surgery (from 03/08/2024) showed: -hemoglobin 9.9, hematocrit 32.2, MCV 65.3, platelet 238; sodium 141, potassium 4.1, BUN 13.4, creatinine 0.8; hemoglobin A1c 7.6, AST 50, ALT 52 -Repeat CBC ordered (secondary to incident reported above) currently pending Imaging: Hip x-ray showed normal postoperative changes 03/18/2024 patient seen and examined at bedside. Overnight patient was noted to have an episode of fainting as she was walking to the bathroom. Vitals taken at the time were 167/127 with a heart rate of 111. There was an associated nausea and she was given Zofran. Patient did not have recurring episodes of fainting. On assessment today, she still feels nauseated and dizzy trying to sit up. She has not ambulated or passed flatus or had a bowel movement. She has been able to urinate on a commode. WBC 14.1 hemoglobin 7.3 platelet count 1 86,000 sodium 139 potassium 4.2 chloride 111 bicarb 20 BUN 12 creatinine 0.7 glucose 138 calcium 8.4 magnesium 1.5 03/19/2024 patient seen and examined at bedside. Patient reported that her pain is moderately controlled with oral pain medication. She she also reported that she is feeling lightheaded and fatigued to the point that she cannot walk around the room. She has not been able to have a bowel movement yet but she has experienced flatus and is able to urinate in the commode. She denies nausea, dizziness, chest pain, palpitations, shortness of breath, calf tenderness, tremors, or focal weakness. WBC 10.4 hemoglobin 6.8 MCV 67 platelet count 1 69,000 sodium 142 potassium 4 chloride 109 bicarb 19.7 BUN 10.3 creatinine 0.7 glucose 118 calcium 8.5 AST 38 ALT 32 albumin 3.6 magnesium 1.6 03/20/2024 patient seen and examined at bedside. Patient reported that her pain is more controlled today compared to yesterday and she is on oral pain medication. She also reported that she has not had a bowel movement yet. Patient denies nausea, dizziness, shortness of breath, focal weakness, chest pain, shortness of breath, or palpitations. Labs today show WBC 9.4 hemoglobin 7 platelet count 163,000 sodium 142 potassium 3.8 chloride 110 bicarb 22 BUN 7.2 creatinine 0.6 glucose 127 calcium 8.1 Review of systems: Pertinent positives and negatives as discussed in HPI, a complete review of systems was performed and all other systems are negative. Pertinent imaging and labs reviewed. Physical examination: Vital signs reviewed General: non toxic, no distress, appears fatigued Derm: no unusual rashes/lesions, warm, dressing noted at the left hip, clean and dry, with no erythema, no drainage. Head: atraumatic, normocephalic, symmetric Eyes: EOMI, anicteric sclera, pupils equal round reactive to light ENT: Nose and ears atraumatic Neck: No cervical lymphadenopathy, trachea midline, supple Mouth: no lip lesion, mucus membranes moist Cardiovascular: S1S2 reg, no murmur Lungs: CTA bilateral, no rhonchi, no rales, no accessory muscle use Abdominal: soft, nontender to palpation, no guarding Ext: muscle strength 5 out of 5 in all 4 extremities grossly, no gross muscle atrophy, no contractures, positive dorsalis pedis pulse bilateral, no extremity edema Neuro: CN II-XI grossly intact, no gross focal neuro deficits Psych: Alert and oriented x3, appropriate affect and mood Assessment/Plan: Marita is a 58-year-old female with PMH of right breast cancer (s/p chemo, radiation and lumpectomy; maintain on anastrozole), gastric bypass surgery, hyperlipidemia, diabetes mellitus, Mediterranean thalassemia and history of DVTs (not previously on Eliquis). She presents to the hospital today for left total hip arthroplasty. She has been accepted to the internal medicine service for medical management. Chronic Medical Conditions #Presyncope secondary to neurogenic orthostasis, resolved #Acute on chronic anemia secondary to blood loss, status post transfusion 1 packed unit RBC #History of Mediterranean thalassemia -Blood loss estimated during procedure was 200 cc -Placed on telemetry -Fall precautions -Continue to monitor CBC -Hemoglobin today 7. -Status post transfuse 1 unit packed RBC -Continue with IV normal saline 0.9% at 100 cc/h #Hypomagnesemia Magnesium 1.6 -Will monitor for now #Diabetes mellitus, type 2 Holding oral medications; maintained at home on 500 mg metformin twice daily Begin Accu-Cheks and low-dose sliding scale, monitor for hypoglycemia -NovoLog 2 units ACHS -Levemir 10 units subcu daily in the morning #Hyperlipidemia -Maintained on 10 mg Lipitor daily #History of right breast cancer s/p chemo, radiation and lumpectomy -Maintained on anastrozole 1 mg daily -Follows with Dr. Mckeon #History of DVTs (diagnosed at time of gastric bypass surgery) -Not maintained on Eliquis -Has IVC filter #History of gastric bypass surgeries #Left total hip arthroplasty -Pain management and DVT prophylaxis per primary surgical team F: IV normal saline 100 cc/h E: Replete as needed N: Regular diet DVT ppx: per primary surgical team Code status: Full code Danitza Infante MD PGY-1/Display Coordinator Dictation was produced using [employer] dictation software. please excuse any grammatical, word or spelling errors. I saw and evaluated the patient during the taylor and critical portions of this encounter, and discussed the case in detail with the resident author of this note, I agree with the Assessment and Plan, and my changes, if any, are highlighted in blue. Objective - Vital Signs Vital signs: Vital Signs Temp 99.2 F 03/20/24 07:41 Pulse 75 03/20/24 07:41 Resp 16 03/20/24 08:35 BP 112/72 03/20/24 07:41 Pulse Ox 97 03/20/24 07:41 FiO2 Intake & Output 03/19/24 03/20/24 03/20/24 18:59 06:59 18:59 Intake Total 285 540 Balance 285 540 Intake: Oral 540 Blood Product 285 Rc Pheresis As-3 Unit 285 [id number] Other: Voiding Method Toilet Toilet Bedside Commode Bedside Commode # Voids 3 3 - Labs CBC & Chem 7: 03/20/24 02:51 03/20/24 02:51 Labs: Abnormal Lab Results - Last 24 Hours (Table) 03/19/24 03/19/24 03/19/24 Range/Units 12:13 12:16 16:32 RBC 3.07 L (3.80-5.40) m/uL Hgb 6.4 L* (11.4-16.0) gm/dL Hct 20.5 L (34.0-46.0) % MCV 66.8 L (80.0-100.0) fL MCH 20.9 L (25.0-35.0) pg MCHC (32.0-37.0) g/dL RDW 17.4 H (11.5-15.5) % Plt Count (150-450) k/uL Monocytes # (0.20-1.00) X 10*3/uL Eosinophils # (0.04-0.35) X 10*3/uL Chloride (96-109) mmol/L BUN (9.0-27.0) mg/dL Glucose (70-110) mg/dL POC Glucose (mg/dL) 136 H (70-110) mg/dL Calcium (8.7-10.3) mg/dL Crossmatch See Detail 03/19/24 03/19/24 03/20/24 Range/Units 19:10 21:38 02:51 RBC 3.36 L 3.27 L (3.80-5.40) m/uL Hgb 7.5 L 7.0 L (11.4-16.0) gm/dL Hct 23.0 L 22.3 L (34.0-46.0) % MCV 68.6 L 68.2 L (80.0-100.0) fL MCH 22.2 L 21.4 L (25.0-35.0) pg MCHC 31.4 L (32.0-37.0) g/dL RDW 18.8 H 18.6 H (11.5-15.5) % Plt Count 141 L (150-450) k/uL Monocytes # 1.13 H (0.20-1.00) X 10*3/uL Eosinophils # 0.01 L (0.04-0.35) X 10*3/uL Chloride (96-109) mmol/L BUN (9.0-27.0) mg/dL Glucose (70-110) mg/dL POC Glucose (mg/dL) 163 H (70-110) mg/dL Calcium (8.7-10.3) mg/dL Crossmatch 03/20/24 03/20/24 03/20/24 Range/Units 02:51 06:24 11:40 RBC (3.80-5.40) m/uL Hgb (11.4-16.0) gm/dL Hct (34.0-46.0) % MCV (80.0-100.0) fL MCH (25.0-35.0) pg MCHC (32.0-37.0) g/dL RDW (11.5-15.5) % Plt Count (150-450) k/uL Monocytes # (0.20-1.00) X 10*3/uL Eosinophils # (0.04-0.35) X 10*3/uL Chloride 110 H (96-109) mmol/L BUN 7.2 L (9.0-27.0) mg/dL Glucose 127 H (70-110) mg/dL POC Glucose (mg/dL) 124 H 209 H (70-110) mg/dL Calcium 8.1 L (8.7-10.3) mg/dL Crossmatch
[2024-03-20 16:37] LABS: Glucose,Whole Blood 94 mg/dL (70-110)
[2024-03-20 20:31] LABS: Glucose,Whole Blood 160 mg/dL (70-110)
[2024-03-20 22:38] LABS: Glucose,Whole Blood 112 mg/dL (70-110)
[2024-03-21 06:15] LABS: Glucose,Whole Blood 119 mg/dL (70-110)
--- NOTE | 2024-03-21 08:33 | P.PN ---
Subjective no acute events per nursing. The patient states she is doing much better this morning. Her pain is controlled with Tylenol 3. She denies chest pain shortness of breath palpitations or feeling lightheaded. She requests to be discharged. Objective - Vital Signs Vital signs: Vital Signs Temp 99.6 F 03/21/24 02:00 Pulse 77 03/21/24 02:00 Resp 18 03/21/24 02:00 BP 113/72 03/21/24 02:00 Pulse Ox 92 L 03/21/24 02:00 FiO2 Intake & Output 03/20/24 03/21/24 03/21/24 18:59 06:59 18:59 Intake Total 240 Balance 240 Intake: Oral 240 Other: Voiding Method Toilet # Voids 3 4 - Exam The patient is resting comfortably in their bed. A focused examination of the operative hip was performed. On inspection there is a clean-appearing dressing over the anterior hip with no drainage or strike through. There is mild swelling throughout the thigh. Femoral nerve function is intact. The patient is able to actively dorsiflex and plantarflex their ankle and toes. Sensation is intact to light touch throughout the foot. The foot is warm and well-perfused with brisk capillary refill. - Labs CBC & Chem 7: 03/20/24 02:51 03/20/24 02:51 Labs: Abnormal Lab Results - Last 24 Hours (Table) 03/20/24 03/20/24 03/20/24 Range/Units 02:51 02:51 11:40 RBC 3.27 L (4.10-5.20) X 10*6/uL Hgb 7.0 L (12.0-15.0) g/dL Hct 22.3 L (37.2-46.3) % MCV 68.2 L (80.0-97.0) FL MCH 21.4 L (27.0-32.0) pg MCHC 31.4 L (32.0-37.0) g/dL RDW 18.6 H (11.5-14.5) % Monocytes # 1.13 H (0.20-1.00) X 10*3/uL Eosinophils # 0.01 L (0.04-0.35) X 10*3/uL Chloride 110 H (96-109) mmol/L BUN 7.2 L (9.0-27.0) mg/dL Glucose 127 H (70-110) mg/dL POC Glucose (mg/dL) 209 H (70-110) mg/dL Calcium 8.1 L (8.7-10.3) mg/dL 03/20/24 03/20/24 03/21/24 Range/Units 20:29 22:36 06:13 RBC (4.10-5.20) X 10*6/uL Hgb (12.0-15.0) g/dL Hct (37.2-46.3) % MCV (80.0-97.0) FL MCH (27.0-32.0) pg MCHC (32.0-37.0) g/dL RDW (11.5-14.5) % Monocytes # (0.20-1.00) X 10*3/uL Eosinophils # (0.04-0.35) X 10*3/uL Chloride (96-109) mmol/L BUN (9.0-27.0) mg/dL Glucose (70-110) mg/dL POC Glucose (mg/dL) 160 H 112 H 119 H (70-110) mg/dL Calcium (8.7-10.3) mg/dL Assessment and Plan Plan: patient is doing much better this morning. She has requested to be discharged home. I would like to see her hemoglobin this morning. If it is stable we will discharge her home later today. Continue treatment as outlined previously.
[2024-03-21 09:03] LABS: Basophils # (A) 0.05 X 10*3/uL (0.00-0.10); Basophils % (A) 0.5 %; Eosinophils # (A) 0.06 X 10*3/uL (0.04-0.35); Eosinophils % (A) 0.6 %; HCT 21.6 % (37.2-46.3); Lymphocytes # (A) 2.47 X 10*3/uL (0.90-5.00); Lymphocytes % (A) 26.6 %; MCH 22.2 pg (27.0-32.0); MCHC 32.4 g/dL (32.0-37.0); MCV 68.6 FL (80.0-97.0); Monocytes # (A) 0.96 X 10*3/uL (0.20-1.00); Monocytes % (A) 10.3 %; NRBC Per 100 WBC 0.04 X 10*3/uL (0.00-0.01); Neutrophils # (A) 5.68 X 10*3/uL (1.80-7.70); Neutrophils % (A) 61.4 %; Platelet Count 161 X 10*3/uL (140-440); RBC 3.15 X 10*6/uL (4.10-5.20); WBC 9.28 X 10*3/uL (4.50-10.00)
[2024-03-21 09:24] LABS: Blood Urea Nitrogen 6.3 mg/dL (9.0-27.0); Carbon Dioxide 21.8 mmol/L (21.6-31.8); Chloride 111 mmol/L (96-109); Glucose 117 mg/dL (70-110); Potassium 3.7 mmol/L (3.5-5.5); Sodium 141 mmol/L (135-145)
[2024-03-21 11:52] LABS: Glucose,Whole Blood 152 mg/dL (70-110)
[2024-03-21] MEDS: Acetaminophen-Codeine 300-30mg TAB PO PRN (12:16)
--- NOTE | 2024-03-21 13:17 | P.PN ---
Subjective Progress Note Date: 03/21/24 58-year-old female with a PMH of right breast cancer (s/p chemo, radiation and lumpectomy; maintained on anastrozole), gastric bypass surgery, hyperlipidemia, diabetes mellitus, Mediterranean thalassemia and a history of DVTs (not previously on Eliquis). She presents to the hospital today for left total hip arthroplasty. At the time of the interview, patient sitting comfortably in bed with no acute complaints. At the time of the interview she reports absence of fever, chills, weight loss, chest pain, palpitations, diaphoresis, dyspnea, cough, nausea, vomiting, constipation, diarrhea, abdominal pain, weakness, myalgia, dizziness, headache, and dysuria. Internal medicine was consulted for medical management. After leaving the room was notified by the nursing staff that when the patient got up to use the restroom, she was "too dizzy" to return back so she was returned to her bed in her chair. At that time she went unresponsive for a moment, BP 169/127 with a heart rate of 111, per the nursing staff episode was 30 seconds - 1 minute. Patient felt nausea at that time and took oral Zofran as was ordered. It is reported that she spit up a bit of "brown stuff", she returned to bed however still feels some nausea at this time blood pressure 148/60, heart rate 80. Initial lab workup prior to the surgery (from 03/08/2024) showed: -hemoglobin 9.9, hematocrit 32.2, MCV 65.3, platelet 238; sodium 141, potassium 4.1, BUN 13.4, creatinine 0.8; hemoglobin A1c 7.6, AST 50, ALT 52 -Repeat CBC ordered (secondary to incident reported above) currently pending Imaging: Hip x-ray showed normal postoperative changes Subjective: Pt is feeling better today. Plan is for 1U PRBC transfusion for hgb of 7 and then medically cleared for discharge. Med rec was completed by me on 03/21 Review of systems: Pertinent positives and negatives as discussed in HPI, a complete review of systems was performed and all other systems are negative. Pertinent imaging and labs reviewed. Gen: In NAD, non-toxic HEENT: normocephalic, atraumatic, hearing acuity is intant, mucous membranes moist CVS: perfusing all extremities well, no pitting edema, Respiratory: symmetric chest expansion, no accessory muscle use, GI: soft, NTTP, ND, : no suprapubic tenderness, no CVA tenderness MSK/Derm: no rashes, cyanosis Neuro: CN II-XII intact, no motor weakness, Psych: cooperative, euthymic mood, judgment and insight is intact Assessment/Plan: Marita is a 58-year-old female with PMH of right breast cancer (s/p chemo, radiation and lumpectomy; maintain on anastrozole), gastric bypass surgery, hyperlipidemia, diabetes mellitus, Mediterranean thalassemia and history of DVTs (not previously on Eliquis). She presents to the hospital today for left total hip arthroplasty. She has been accepted to the internal medicine service for medical management. Chronic Medical Conditions #Presyncope secondary to neurogenic orthostasis, resolved #Acute on chronic anemia secondary to blood loss, status post transfusion 1 packed unit RBC #History of Mediterranean thalassemia -Blood loss estimated during procedure was 200 cc -Placed on telemetry -Fall precautions -Continue to monitor CBC -Hemoglobin today 7. -Status post transfuse 1 unit packed RBC -Continue with IV normal saline 0.9% at 100 cc/h #Hypomagnesemia Magnesium 1.6 -Will monitor for now #Diabetes mellitus, type 2 Holding oral medications; maintained at home on 500 mg metformin twice daily Begin Accu-Cheks and low-dose sliding scale, monitor for hypoglycemia -NovoLog 2 units ACHS -Levemir 10 units subcu daily in the morning #Hyperlipidemia -Maintained on 10 mg Lipitor daily #History of right breast cancer s/p chemo, radiation and lumpectomy -Maintained on anastrozole 1 mg daily -Follows with Dr. Mckeon #History of DVTs (diagnosed at time of gastric bypass surgery) -Not maintained on Eliquis -Has IVC filter #History of gastric bypass surgeries #Left total hip arthroplasty -Pain management and DVT prophylaxis per primary surgical team F: IV normal saline 100 cc/h E: Replete as needed N: Regular diet DVT ppx: per primary surgical team Code status: Full code Dictation was produced using [employer] dictation software. please excuse any grammatical, word or spelling errors. Objective - Vital Signs Vital signs: Vital Signs Temp 98.1 F 03/21/24 11:01 Pulse 74 03/21/24 11:01 Resp 16 03/21/24 11:01 BP 105/68 03/21/24 11:01 Pulse Ox 99 03/21/24 10:31 FiO2 Intake & Output 03/20/24 03/21/24 03/21/24 18:59 06:59 18:59 Intake Total 240 0 Balance 240 0 Intake: Oral 240 Blood Product 0 Unit 0 Other: Voiding Method Toilet # Voids 3 4 - Labs CBC & Chem 7: 03/21/24 03:07 03/21/24 03:07 Labs: Abnormal Lab Results - Last 24 Hours (Table) 03/19/24 03/20/24 03/20/24 Range/Units 12:16 20:29 22:36 RBC (4.10-5.20) X 10*6/uL Hgb (12.0-15.0) g/dL Hct (37.2-46.3) % MCV (80.0-97.0) FL MCH (27.0-32.0) pg RDW (11.5-14.5) % Immature Gran # (0.00-0.04) X 10*3/uL NRBC/100 WBC Diff (0.00-0.01) X 10*3/uL Chloride (96-109) mmol/L BUN (9.0-27.0) mg/dL BUN/Creatinine Ratio (12.00-20.00) Ratio Glucose (70-110) mg/dL POC Glucose (mg/dL) 160 H 112 H (70-110) mg/dL Calcium (8.7-10.3) mg/dL Crossmatch See Detail 03/21/24 03/21/24 03/21/24 Range/Units 03:07 03:07 06:13 RBC 3.15 L (4.10-5.20) X 10*6/uL Hgb 7.0 L (12.0-15.0) g/dL Hct 21.6 L (37.2-46.3) % MCV 68.6 L (80.0-97.0) FL MCH 22.2 L (27.0-32.0) pg RDW 19.0 H (11.5-14.5) % Immature Gran # 0.06 H (0.00-0.04) X 10*3/uL NRBC/100 WBC Diff 0.04 H (0.00-0.01) X 10*3/uL Chloride 111 H (96-109) mmol/L BUN 6.3 L (9.0-27.0) mg/dL BUN/Creatinine Ratio 10.50 L (12.00-20.00) Ratio Glucose 117 H (70-110) mg/dL POC Glucose (mg/dL) 119 H (70-110) mg/dL Calcium 8.0 L (8.7-10.3) mg/dL Crossmatch 03/21/24 Range/Units 11:50 RBC (4.10-5.20) X 10*6/uL Hgb (12.0-15.0) g/dL Hct (37.2-46.3) % MCV (80.0-97.0) FL MCH (27.0-32.0) pg RDW (11.5-14.5) % Immature Gran # (0.00-0.04) X 10*3/uL NRBC/100 WBC Diff (0.00-0.01) X 10*3/uL Chloride (96-109) mmol/L BUN (9.0-27.0) mg/dL BUN/Creatinine Ratio (12.00-20.00) Ratio Glucose (70-110) mg/dL POC Glucose (mg/dL) 152 H (70-110) mg/dL Calcium (8.7-10.3) mg/dL Crossmatch
[2024-03-21 13:39] VITALS: BP 136/62; PULSE 6; RESP 14; TEMP 98.8
== END 2024-03-21 13:53 | disposition home health service (06) ==
LOC: OR 10:05 → 4SSUR 13:55 → OR 03-21 13:53
PROVIDERS: ADMIT Orthopaedic Surgery; ATTEND Orthopaedic Surgery
DX: M16.12 Unilateral primary osteoarthritis, left hip (principal); D62 Acute posthemorrhagic anemia; E83.42 Hypomagnesemia; D56.9 Thalassemia, unspecified; E11.9 Type 2 diabetes mellitus without complications; E78.5 Hyperlipidemia, unspecified; G89.18 Other acute postprocedural pain; I10 Essential (primary) hypertension; Z79.01 Long term (current) use of anticoagulants; Z79.4 Long term (current) use of insulin; Z79.899 Other long term (current) drug therapy; Z85.3 Personal history of malignant neoplasm of breast; Z86.711 Personal history of pulmonary embolism; Z86.718 Personal history of other venous thrombosis and embolism; Z87.891 Personal history of nicotine dependence; Z88.0 Allergy status to penicillin; Z98.890 Other specified postprocedural states; Z98.84 Bariatric surgery status; Z79.811 Long term (current) use of aromatase inhibitors; Z79.82 Long term (current) use of aspirin; Z79.84 Long term (current) use of oral hypoglycemic drugs; Z92.21 Personal history of antineoplastic chemotherapy; Z95.828 Presence of other vascular implants and grafts; Z98.82 Breast implant status
CPT/HCPCS: 27130; 36430; 97166; 64999; 88304; 80048 ×2; 83735; 85025 ×3; 86920; 88342; 88311; 88341; 73501; G0378 ×3; C1776; C1713; P9016; J0171; J2250; J0330; J1100; J2710; J0690 ×2; J2405 ×2; J2003; J3010; S0170 ×4; J3490; J1171; J2795; J1885; J2704; J1596

== ENCOUNTER 2024-07-06 21:15 | Observation (INO) | payer BC ==
--- NOTE | 2024-07-06 21:44 | ED ---
Chest Pain HPI - General Chief Complaint: Chest Pain Stated Complaint: Abd Pain Time Seen by Provider: 07/06/24 21:27 Source: patient Mode of arrival: ambulatory Limitations: no limitations - History of Present Illness Initial Comments: This patient is a 58-year-old woman who presents to have evaluation of chest pain. She states that the pain started around 6 PM while she was driving home from work. She states that it started in the epigastric area and it feels like it goes around costal margin bilaterally like something being tightened around her. She has not noted worsening or relieving factors though she did try taking antacid which did not really change it. She states that when the pain got very severe she had a round of nausea but no other associated symptoms. She has not noted fever or chills, cough, dyspnea, diaphoresis, palpitations or syncope. No vomiting. No change in urination or bowel movements. MD Complaint: chest pain Onset/Timin -: hour(s) Onset: during rest Pain Location: epigastric Pain Radiation: back Severity: severe Quality: tightness Consistency: constant Improves With: nothing Worsens With: nothing Anginal Symptoms: nausea Treatments Prior to Arrival: other (antAcid) - Related Data Home Medications Medication Instructions Recorded Confirmed Atorvastatin [Lipitor] 10 mg PO DAILY 08/03/20 07/07/24 allopurinoL [Zyloprim] 300 mg PO DAILY 08/03/20 07/07/24 metFORMIN HCL ER [Glucophage XR] 500 mg PO BID 12/20/20 07/07/24 Anastrozole [Arimidex] 1 mg PO DAILY 03/16/24 07/07/24 hydrOXYzine HCL 25 mg PO HS 03/16/24 07/07/24 Biotin [Wpir-Sape-Goxwi] 10,000 mcg PO DAILY 07/07/24 07/07/24 Cholecalciferol [Vitamin D3 (125 125 mcg PO DAILY 07/07/24 07/07/24 Mcg = 5000 Iu)] Previous Rx's Medication Instructions Recorded Acetaminophen-Codeine 300-30mg 2 each PO Q8HR PRN #18 tab 07/10/24 [Tylenol w/codeine #3] Ciprofloxacin HCl [Cipro] 500 mg PO Q12HR 4 Days #8 tab 07/10/24 Pantoprazole [Protonix] 40 mg PO AC-BRKFST 30 Days #30 tab 07/10/24 bisacodyL [Dulcolax] 10 mg PO DAILY PRN #10 tab 07/10/24 metroNIDAZOLE [Flagyl] 500 mg PO QID 4 Days #16 tab 07/10/24 polyethylene glycoL 3350 [Miralax] 17 gm PO DAILY 30 Days #30 packet 07/10/24 Allergies Allergy/AdvReac Type Severity Reaction Status Date / Time Penicillins Allergy Severe Rash/Hives Verified 07/07/24 07:30 Review of Systems ROS Statement: Those systems with pertinent positive or pertinent negative responses have been documented in the HPI. ROS Other: All systems not noted in ROS Statement are negative. Constitutional: Denies: fever, chills, weakness Respiratory: Denies: cough, dyspnea Cardiovascular: Reports: chest pain. Denies: palpitations, dyspnea on exertion, orthopnea, syncope Gastrointestinal: Reports: nausea. Denies: abdominal pain, vomiting, diarrhea Genitourinary: Denies: dysuria, hematuria Musculoskeletal: Denies: back pain Skin: Denies: rash Neurological: Denies: headache, weakness EKG Findings - EKG Results: EKG: interpreted by SUZANNE, sinus rhythm (Rate 61 bpm), normal ST/T - Blocks, [place], Hypertrophy, ST Abn: AV and intraventricular conduction: intraventricular conduction delay QRS axis and voltage: left axis deviation (-30 to -90) (Borderline) Past Medical History Past Medical History: Cancer, Deep Vein Thrombosis (DVT), Hyperlipidemia, Hypertension, Osteoarthritis (OA) Additional Past Medical History / Comment(s): right breast cancer- currently on chemo last tx 12/15/20 History of Any Multi-Drug Resistant Organisms: None Reported Past Surgical History: Bariatric Surgery, Breast Surgery Additional Past Surgical History / Comment(s): Sinus surgery, breast implants, Gastric Bypass 2003, right breast lumpectomy September 2020 Past Anesthesia/Blood Transfusion Reactions: No Reported Reaction Past Psychological History: No Psychological Hx Reported Smoking Status: Former smoker Past Alcohol Use History: None Reported Past Drug Use History: None Reported - Past Family History Mother Family Medical History: No Reported History General Exam Limitations: no limitations General appearance: alert, in no apparent distress Head exam: Present: atraumatic, normocephalic Eye exam: Present: normal appearance. Absent: scleral icterus, conjunctival injection ENT exam: Present: normal oropharynx Neck exam: Present: normal inspection Respiratory exam: Present: normal lung sounds bilaterally. Absent: respiratory distress, wheezes, rales, rhonchi, stridor, chest wall tenderness, accessory muscle use Cardiovascular Exam: Present: regular rate, normal rhythm, normal heart sounds. Absent: systolic murmur, diastolic murmur, rubs, gallop GI/Abdominal exam: Present: soft, tenderness (There is epigastric and right upper quadrant tenderness without rebound or guarding). Absent: distended, guarding, rebound, rigid, organomegaly, mass, pulsatile mass, hernia Extremities exam: Present: normal inspection, normal capillary refill. Absent: pedal edema, calf tenderness Back exam: Present: normal inspection. Absent: CVA tenderness (R), CVA tenderness (L) Neurological exam: Present: alert Skin exam: Present: warm, dry, intact, normal color. Absent: rash Course Vital Signs 07/06/24 07/07/24 21:17 00:51 Temperature 97 F L Pulse Rate 66 57 L Respiratory 15 18 Rate Blood Pressure 185/96 115/64 O2 Sat by Pulse 100 95 Oximetry Chest Pain MDM - MDM The patient had chest x-ray that I interpreted as negative for acute infiltrate, pneumothorax, congestive heart failure. Was pt. sent in by a medical professional or institution (, PA, DAIRY SPECIALIST, urgent care, hospital, or jail...) When possible be specific @ -[No] Did you speak to anyone other than the patient for history (EMS, parent, family, police, friend...)? What history was obtained from this source @ -[No] Did you review nursing and triage notes (agree or disagree)? Why? @ -[I reviewed and agree with nursing and triage notes] Were old charts reviewed (outside hosp., previous admission, EMS record, old EKG, old radiological studies, urgent care reports/EKG's, jail records)? Report findings @ -[No old charts were reviewed] Differential Diagnosis (chest pain, altered mental status, abdominal pain women, abdominal pain men, vaginal bleeding, weakness, fever, dyspnea, syncope, headache, dizziness, GI bleed, back pain, seizure, CVA, palpatations, mental health, musculoskeletal)? @ -[Differential Chest Pain: Stable Angina, Unstable Angina, STEMI, NSTEMI Aortic Dissection, Pneumothorax, Musculoskeletal, Esophageal Spasm GERD, Cholecystitis, Pancreatitis, Zoster, this is not meant to be an all-inclusive list. EKG interpreted by me (3pts min.). @ -[I interpreted as above] X-rays interpreted by me (1pt min.). @ -[I interpreted as above CT interpreted by me (1pt min.). @ -[None done] U/S interpreted by me (1pt. min.). @ -[None done] What testing was considered but not performed or refused? (CT, X-rays, U/S, labs)? Why? @ -[None] What meds were considered but not given or refused? Why? @ -[None] Did you discuss the management of the patient with other professionals (professionals i.e. , PA, DAIRY SPECIALIST, lab, RT, psych nurse, health and social care teacher, log turner, teacher, conservation officer, block and case maker)? Give summary @ -[Case discussed with admitting physician and treatment recommendations incorporated Was smoking cessation discussed for >3mins.? @ -[No] Was critical care preformed (if so, how long)? @ -[No] Were there social determinants of health that impacted care today? How? (Homelessness, low income, unemployed, alcoholism, drug addiction, transportation, low edu. Level, literacy, decrease access to med. care, alf, rehab)? @ -[No] Was there de-escalation of care discussed even if they declined (Discuss DNR or withdrawal of care, Hospice)? DNR status @ -[No] What co-morbidities impacted this encounter? (DM, HTN, Smoking, COPD, CAD, Cancer, CVA, ARF, Chemo, Hep., AIDS, mental health diagnosis, sleep apnea, morbid obesity)? @ -[None] Was patient admitted / discharged? Hospital course, mention meds given and route, prescriptions, significant lab abnormalities, going to OR and other pertinent info. @ -[Patient is 58-year-old woman presenting to have evaluation for chest pain. Given cardiac risk factor, patient to have cardiac rule out. Exam is also concerning for possibility of cholecystitis. The patient will have surgical consultation. Undiagnosed new problem with uncertain prognosis? @ -[No] Drug Therapy requiring intensive monitoring for toxicity (Heparin, Nitro, Insulin, Cardizem)? @ -[No] Were any procedures done? @ -[No] Diagnosis/symptom? @ -[Acute chest pain Acute, or Chronic, or Acute on Chronic? @ -[Acute Uncomplicated (without systemic symptoms) or Complicated (systemic symptoms)? @ -[Uncomplicated Side effects of treatment? @ -[No] Exacerbation, Progression, or Severe Exacerbation? @ -[No] Poses a threat to life or bodily function? How? (Chest pain, [place], [place], pneumonia, PE, COPD, DKA, ARF, appy, cholecystitis, CVA, Diverticulitis, Homicidal, Suicidal, threat to staff... and all critical care pts) @ -[Yes, requires further evaluation All treatments are based on ideal body weight as in ED triage Disposition Clinical Impression: Chest pain Disposition: ADMITTED IP TO THIS HOSP Condition: Stable Is patient prescribed a controlled substance at d/c from ED?: No
[2024-07-06 21:58] LABS: Anisocytosis Slight; Basophils # (A) 0.1 k/uL (0-0.2); Basophils % (A) 1 %; Eosinophils # (A) 0.1 k/uL (0-0.7); Eosinophils % (A) 1 %; HCT 34.5 % (34.0-46.0); HGB 10.6 gm/dL (11.4-16.0); Hypochromasia Marked; Lymphocytes # (A) 1.7 k/uL (1.0-4.8); Lymphocytes % (A) 17 %; MCH 19.7 pg (25.0-35.0); MCHC 30.8 g/dL (31.0-37.0); MCV 63.9 fL (80.0-100.0); Mean Platelet Volume 7.2; Microcytosis Marked; Monocytes # (A) 0.8 k/uL (0-1.0); Monocytes % (A) 8 %; Neutrophils # (A) 7.2 k/uL (1.3-7.7); Neutrophils % (A) 71 %; Platelet Count 200 k/uL (150-450); Poikilocytosis Slight; WBC 10.2 k/uL (3.8-10.6)
[2024-07-06 22:13] LABS: Partial Thromboplastin Time 22.7 sec (22.0-30.0); Prothrombin Time 10.6 sec (10.0-12.5)
[2024-07-06 22:16] LABS: ALT 44 U/L (4-34); AST 50 U/L (14-36); African American GFR (CKD) >90 (>60 ml/min/1.73 sqM); Albumin 4.6 g/dL (3.5-5.0); Alkaline Phosphatase 99 U/L (38-126); Amylase 46 U/L (30-110); Anion Gap 13 mmol/L; Blood Urea Nitrogen 13 mg/dL (7-17); Calcium 9.5 mg/dL (8.4-10.2); Carbon Dioxide 20 mmol/L (22-30); Chloride 104 mmol/L (98-107); Glucose 319 mg/dL (74-99); Lipase 64 U/L (23-300); Magnesium 1.6 mg/dL (1.6-2.3); Non-African American GFR(CKD) >90 (>60 ml/min/1.73 sqM); Sodium 137 mmol/L (137-145); Total Bilirubin 0.6 mg/dL (0.2-1.3); Total Protein 7.5 g/dL (6.3-8.2)
[2024-07-06] MEDS: ONDANSETRON 4 MG/2 ML VIAL IVP STA (22:24)
[2024-07-06] MEDS: Acetaminophen-Codeine 300-30mg TAB PO STA (22:26)
[2024-07-06] MEDS: ASPIRIN 81 MG PO STA (22:27)
[2024-07-07] MEDS ORDERED: NITROGLYCERIN SL TABS 0.4 MG TAB SUBLINGUAL PRN (01:07)
--- NOTE | 2024-07-07 01:12 | XR ---
EXAM: XR Chest, 2 Views CLINICAL HISTORY: ITS.REASON XR Reason: Chest Pain TECHNIQUE: Frontal and lateral views of the chest. COMPARISON: No relevant prior studies available. FINDINGS: Lungs: Unremarkable. No consolidation. Pleural space: Unremarkable. No pneumothorax. Heart: Unremarkable. No cardiomegaly. Mediastinum: Unremarkable. Bones/joints: Unremarkable. IMPRESSION: No consolidation.
[2024-07-07] MEDS ORDERED: ACETAMINOPHEN TAB 325 MG TAB PO PRN (01:35)
[2024-07-07] MEDS ORDERED: IBUPROFEN 800 MG TAB PO PRN (01:36)
--- NOTE | 2024-07-07 02:34 | P.HPIM ---
History of Present Illness H&P Date: 07/07/24 Chief Complaint: chest pain Patient is a 58-year-old female with hypertension, hyperlipidemia, kgd-uhppesv-ipssbordb diabetes mellitus, history of DVT s/p IVC filter, breast cancer s/p chemo and radiation, currently in remission presenting with epigastric pain. Patient states she had the pain around 6 PM while driving home from work. She states while eating she developed severe 10/10 pain in the epigastric area and feet and states that it goes around the costal margin. She states it feels like she is being squeezed. Patient denies any alleviating or aggravating factors. She initially tried taking an antacid but it did not work. She was given Tylenol 3 in the ED and she states that that helped relieved her symptoms. Patient admits to feeling nauseous a couple times. Patient denies any fever, chills, night sweats, shortness of breath, palpitations, vomiting, diarrhea, urinary symptoms. EKG independently interpreted displays sinus rhythm, vent rate 61 bpm, QTc 432 ms CXR independently interpreted displaying no acute cardiopulmonary process T 97 F, TX 66, RR 15, BP 185/96, O2 sat 100% on room air Review of systems: Pertinent positives and negatives as discussed in HPI, a complete review of systems was performed and all other systems are negative. Physical examination: Vital signs reviewed General: non toxic, no distress, appears at stated age, normal weight Derm: no unusual rashes/lesions, warm Head: atraumatic, normocephalic, symmetric Eyes: EOMI, anicteric sclera, pupils equal round reactive to light ENT: Nose and ears atraumatic Mouth: no lip lesion, mucus membranes moist Cardiovascular: S1S2 reg, no murmur, positive dorsalis pedis pulse bilateral, no edema Lungs: CTA bilateral, no rhonchi, no rales, no accessory muscle use Abdominal: soft, right upper quadrant and epigastric pain to palpation, also having some suprapubic pain , no guarding no rebound tenderness Ext: muscle strength 5 out of 5 in all 4 extremities grossly, no gross muscle atrophy Neuro: CN II-XI grossly intact, no gross focal neuro deficits Psych: Alert, oriented to person, place, and time Assessment/Plan: Patient is a 58-year-old female with hypertension, hyperlipidemia, [id number]-csdnglkfz diabetes mellitus, history of DVT s/p IVC filter, breast cancer s/p chemoradiation in remission presenting with chest pain. ED documentation reviewed. Discussed with patient. The patient is admitted with an anticipated less than 2 midnight stay for evaluation of chest pain. #. Atypical chest pain Heart score Aliyah score Troponin <0.012, continue to trend D-dimer 0.54 Aspirin 81 mg p.o. daily Atorvastatin 10 mg p.o. at bedtime Acetaminophen 650 mg PO q6hr prn, Motrin 800 mg PO TID prn, Tylenol #3 q8hr prn for pain management Nitroglycerin 0.4 sublingual Q5M as needed TSH, lipid panel, A1c ordered Cardiac telemetry Cardiology consulted #. Tig-wlepyxr-pmaohdidy diabetes mellitus Insulin SQ sliding scale Hypoglycemic precautions Accu-Cheks ACHS Hold metformin #. Microcytic anemia Hgb 10.6, MCV 63.9 No active bleeding Patient reports a history of beta thalassemia #. Transaminitis #. abd pain Amylase 46, lipase 64 within normal limit Gallbladder ultrasound pending AST 50, ALT 44 slightly Possibly in the setting of statin use Continue to monitor with follow-up CMP check UA #. Anion gap metabolic acidosis Lactic acid ordered Chronic: #. History of DVT: IVC filter, no anticoagulation #. GERD: Omeprazole 40 mg p.o. daily #. Breast cancer, in remission: Anastrozole 1 mg p.o. daily DVT prophylaxis: Lovenox 40 SQ daily CODE STATUS: Full code Anticipated discharge place: Pending clinical course Yasir Villanueva MD PGY-1 IM Dictation was produced using [employer] dictation software. please excuse any grammatical, word or spelling errors. I have seen and evaluated the patient today. I Discussed the case with the resident and agree with the resident's findings I edited the assessment and plan as necessary as documented in the resident's note. Past Medical History Past Medical History: Cancer, Deep Vein Thrombosis (DVT), Hyperlipidemia, Hypertension, Osteoarthritis (OA) Additional Past Medical History / Comment(s): right breast cancer- currently on chemo last tx 12/15/20 History of Any Multi-Drug Resistant Organisms: None Reported Past Surgical History: Bariatric Surgery, Breast Surgery Additional Past Surgical History / Comment(s): Sinus surgery, breast implants, Gastric Bypass 2003, right breast lumpectomy September 2020 Past Anesthesia/Blood Transfusion Reactions: No Reported Reaction Past Psychological History: No Psychological Hx Reported Smoking Status: Former smoker Past Alcohol Use History: None Reported Past Drug Use History: None Reported - Past Family History Mother Family Medical History: No Reported History Medications and Allergies Home Medications Medication Instructions Recorded Confirmed Type Atorvastatin [Lipitor] 10 mg PO DAILY 08/03/20 03/16/24 History allopurinoL [Zyloprim] 300 mg PO DAILY 08/03/20 03/16/24 History Cyanocobalamin (Vitamin B-12) 1,000 mcg PO DAILY 12/20/20 03/16/24 History [Vitamin B-12] metFORMIN HCL ER [Glucophage XR] 500 mg PO BID 12/20/20 03/16/24 History Anastrozole [Arimidex] 1 mg PO DAILY 03/16/24 03/16/24 History Biotin 5,000 mcg PO DAILY 03/16/24 03/16/24 History hydrOXYzine HCL 25 mg PO HS 03/16/24 03/16/24 History Acetaminophen Tab [Tylenol] 650 mg PO Q4HR PRN tab 03/21/24 Rx Acetaminophen-Codeine 300-30mg 1 - 2 tab PO Q6H PRN #48 tablet 03/21/24 Rx [Tylenol w/codeine #3] Docusate [Colace] 100 mg PO BID #60 capsule 03/21/24 Rx Doxycycline Monohydrate [Monodox] 100 mg PO BID #30 cap 03/21/24 Rx Omeprazole [PriLOSEC] 40 mg PO DAILY #30 cap 03/21/24 Rx Ondansetron [Zofran] 4 mg PO Q8HR PRN #20 tab 03/21/24 Rx Rivaroxaban [Xarelto] 10 mg PO DAILY #28 tab 03/21/24 Rx Allergies Allergy/AdvReac Type Severity Reaction Status Date / Time Penicillins Allergy Severe Rash/Hives Verified 07/06/24 21:22 Physical Exam Vitals: Vital Signs Temp Pulse Resp BP Pulse Ox 07/07/24 00:51 57 L 18 115/64 95 07/06/24 21:17 97 F L 66 15 185/96 100 Intake and Output 07/06/24 07/06/24 07/07/24 14:59 22:59 06:59 Other: Weight 75.75 kg Results CBC & Chem 7: 07/07/24 03:56 07/07/24 03:56 Labs: Abnormal Lab Results - Last 24 Hours (Table) 07/06/24 07/06/24 Range/Units 21:42 21:42 Hgb 10.6 L (11.4-16.0) gm/dL MCV 63.9 L (80.0-100.0) fL MCH 19.7 L (25.0-35.0) pg MCHC 30.8 L (31.0-37.0) g/dL RDW 16.0 H (11.5-15.5) % Carbon Dioxide 20 L (22-30) mmol/L Glucose 319 H (74-99) mg/dL AST 50 H (14-36) U/L ALT 44 H (4-34) U/L
[2024-07-07 04:12] LABS: Basophils % (A) 1 %; Eosinophils # (A) 0.1 k/uL (0-0.7); Eosinophils % (A) 1 %; HGB 9.9 gm/dL (11.4-16.0); Hypochromasia Moderate; Lymphocytes # (A) 2.2 k/uL (1.0-4.8); Lymphocytes % (A) 23 %; MCH 19.4 pg (25.0-35.0); MCHC 30.8 g/dL (31.0-37.0); Mean Platelet Volume 7.6; Microcytosis Marked; Monocytes # (A) 0.6 k/uL (0-1.0); Monocytes % (A) 7 %; Neutrophils # (A) 6.3 k/uL (1.3-7.7); Neutrophils % (A) 66 %; Platelet Count 183 k/uL (150-450); Poikilocytosis Slight; RBC 5.09 m/uL (3.80-5.40); RDW 15.9 % (11.5-15.5); WBC 9.4 k/uL (3.8-10.6)
[2024-07-07 04:23] LABS: ALT 38 U/L (4-34); AST 37 U/L (14-36); African American GFR (CKD) >90 (>60 ml/min/1.73 sqM); Albumin 3.9 g/dL (3.5-5.0); Albumin/Globulin Ratio 1.4; Alkaline Phosphatase 81 U/L (38-126); Anion Gap 9 mmol/L; Blood Urea Nitrogen 11 mg/dL (7-17); Calcium 9.4 mg/dL (8.4-10.2); Carbon Dioxide 24 mmol/L (22-30); Chloride 108 mmol/L (98-107); Globulin 2.8 g/dL; Glucose 136 mg/dL (74-99); Magnesium 1.7 mg/dL (1.6-2.3); Non-African American GFR(CKD) >90 (>60 ml/min/1.73 sqM); Potassium 4.5 mmol/L (3.5-5.1); Sodium 141 mmol/L (137-145); Total Bilirubin 0.6 mg/dL (0.2-1.3); Total Protein 6.7 g/dL (6.3-8.2)
--- NOTE | 2024-07-07 04:34 | US ---
EXAM: US Abdomen Limited, Gallbladder CLINICAL HISTORY: ITS.REASON US Reason: pain TECHNIQUE: Real-time ultrasound of the right upper quadrant with image documentation. COMPARISON: No relevant prior studies available. FINDINGS: Liver: The liver is slightly hyperechoic and is enlarged, measuring 19. 5 cm. No definite focal abnormality. Gallbladder: The gallbladder is prominently distended with minimal echogenic sludge. Layering echogenic subcentimeter gallstones noted. The gallbladder wall measures only 2 mm. No pericholecystic fluid. There is a reported negative sonographic Tian sign. Common bile duct: The common bile doubt measures 6.3 mm. No stones. No dilation. Pancreas: The pancreas is obscured by bowel gas pattern. IMPRESSION: The gallbladder is prominently distended with minimal echogenic sludge and layering echogenic subcentimeter gallstones noted. However, no associated sonographic findings to suggest acute cholecystitis. No biliary dilatation.
[2024-07-07] MEDS: KETOROLAC 15 MG/ML 1 ML VIAL IVP SCH (05:03)
[2024-07-07 05:38] LABS: Anisocytosis (M) Present; Ovalocytes Present; Target Cells Present
[2024-07-07 05:39] LABS: Tear Drop Cells Present
[2024-07-07 05:40] LABS: Stomatocytes Present
[2024-07-07 05:52] LABS: T4, Free (Free Thyroxine) 1.07 ng/dL (0.78-2.19)
[2024-07-07 06:18] LABS: Glucose,Whole Blood 119 mg/dL (70-110)
[2024-07-07] MEDS: INSULIN LISPRO (HumaLOG) 100 UNIT/ML 10 mL VL SQ SCH (06:30)
[2024-07-07] MEDS: SODIUM CHLORIDE 0.9% 1,000 ML IV SCH (06:33)
[2024-07-07] MEDS: PANTOPRAZOLE 40 MG TABLET PO SCH (06:34)
[2024-07-07 07:09] LABS: Appearance,Urine Clear (Clear); Bilirubin,Urine Negative (Negative); Blood,Urine Negative (Negative); Color,Urine Colorless; Glucose,Urine (UA) Negative (Negative); Ketones,Urine Negative (Negative); Leukocyte Esterase,Urine Negative (Negative); Nitrite,Urine Negative (Negative); Protein,Urine Negative (Negative); Urobilinogen,Urine <2.0 mg/dL (<2.0)
[2024-07-07] MEDS ORDERED: ENOXAPARIN 40 MG/0.4 ML SYRINGE SQ SCH (09:00)
[2024-07-07] MEDS: ENOXAPARIN 40 MG/0.4 ML SYRINGE SQ SCH (09:35)
--- NOTE | 2024-07-07 11:45 | P.PN ---
Subjective Progress Note Date: 07/07/24 Hospital course: Patient is a 58-year-old female with a past medical history of hypertension, hyperlipidemia, [id number] diabetes mellitus, history of DVT status post IVC filter, and breast cancer status postchemotherapy and radiation currently in remission. She presented the hospital on 07/06/2024 with a chief complaint of epigastric pain/right flank pain. Upon arrival to our facility, patient underwent evaluation in the emergency department. Vital signs upon arrival show blood pressure 185/96, heart rate 66, respiratory rate 15, temp 97.0 F, and SpO2 100% on room air. EKG completed showing normal sinus rhythm at 61 bpm with no noted T wave or ST abnormality showing no signs of acute ischemia upon personal review and interpretation. Chest x-ray completed negative for acute cardiopulmonary process. Ultrasound right upper quadrant completed showing gallbladder prominently distended with minimal echogenic sludge and layering echogenic subcentimeter gallstones noted however negative findings for acute cholecystitis, no biliary dilation. Labs completed and reviewed. CBC showing microcytic anemia with hemoglobin of 10.6 and MCV of 63.9. Coagulation profile normal findings. D-dimer negative at 0.54. BMP s howing mild high anion gap metabolic acidosis with chloride of 104, bicarb of 20, and anion gap of 13. Blood glucose was elevated at 319. Magnesium was low at 1.6 and liver enzymes elevated with AST of 50, ALT of 44, and alkaline phosphatase of 99. Troponin was negative at less than 0.012. Amylase and lipase normal findings. Patient admitted under our services with consultation to cardiology and general surgery. Troponins trended overnight all negative at less than 0.012 x 3 draws. Physical exam: Patient seen and fully evaluated at bedside this morning. She appeared to be doing well and was visiting with family at bedside. She reports pain significantly improved since arrival to our facility. She currently rates epigastric pain 3 out of 10 but only with palpation. Patient denies having any nausea or vomiting, denies any chest pain or palpitations, shortness of breath, or any other complaints at this time. Vital signs reviewed and stable. General: Nontoxic, no distress and appears stated age. Derm: Skin warm and dry, normal coloration for ethnicity. Head: Atraumatic, normocephalic and symmetric. Eyes: EOM's intact, no lid lag, and anicteric sclera Mouth: no lip lesions, mucus membranes moist Cardiovascular: regular rate and rhythm with normal S1S2, no murmur, positive posterior tibial pulses bilaterally, and cap refill < 2 seconds. Lungs: Respirations even, regular, and unlabored on room air. Lungs CTA bilaterally, no rhonchi, no rales, no wheezing, and no accessory muscle usage. Abdominal: soft, nontender to palpation, no guarding, no appreciable organomegaly Ext: ROM intact. No gross muscle atrophy, no edema, no contractures Neuro: Speech clear, face symmetrical and CN II-XII grossly intact with no noted focal neuro deficits Psych: Alert and oriented to person, place, time, and situation. Appropriate and pleasant affect. Assessment and Plan of Care: Epigastric pain and tenderness will rule out acute cholecystitis Transaminitis, secondary to above -Cardiology consulted, appreciate recommendations -Telemetry monitoring -Troponins were trended all negative at less than 0.012 x 3 draws. -NPO pending completion of HIDA scan and diet to be advanced as recommended by general surgery team -Aspirin 81 mg daily and atorvastatin 10 mg daily. -Echocardiogram completed and pending results. -HIDA scan to be completed. Per RN scheduled for completion at 2 PM. Type II [id number] diabetes mellitus with hyperglycemia -Hold metformin and place patient on glycemic protocol with NovoLog sliding scale. History of DVT -DVT prophylaxis with Lovenox 40 mg daily. History of breast cancer, currently in remission. -Continue outpatient follow-up with yearly cancer screenings and monthly self breast exams. Data and imaging reviewed: Vital signs reviewed. Blood pressure 142/75, heart rate 54, respiratory rate 16, temp 97.7 F, and SpO2 of 97% on room air Labs completed and reviewed. CBC showing microcytic anemia with hemoglobin of 9.9 and MCV of 63.0. BMP showing improvement of metabolic acidosis with chloride of 108, bicarb of 24 and anion gap of 9. Blood glucose 136. Magnesium slightly low at 1.7. Liver profile showing elevated AST of 37 and ALT of 38. Troponins were trended overnight all negative at less than 0.012 x 3 draws. TSH was slightly low at 0.076 with free T4 of 1.07. 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 Anticipated discharge date: Pending completion of echocardiogram and HIDA scan. Anticipated discharge place: Home Patient was seen independently by Nurse Pracitioner. This document was prepared using [email or web address] dictation software. Please allow for errors in product engineer, while rare they do occur. Mika Gaspar NP rendered care for this patient independently, reviewed the findings and plan as documented in the note above and agree with plan. I did not physically speak with or examine the patient on this date. Objective - Vital Signs Vital signs: Vital Signs Temp 97.7 F 07/07/24 07:00 Pulse 54 L 07/07/24 07:00 Resp 16 07/07/24 07:00 BP 142/75 07/07/24 07:00 Pulse Ox 97 07/07/24 07:00 FiO2 Intake & Output 07/06/24 07/07/24 07/07/24 18:59 06:59 18:59 Weight 75.75 kg Other: Voiding Method Toilet # Voids 2 - Labs CBC & Chem 7: 07/07/24 03:56 07/07/24 03:56 Labs: Abnormal Lab Results - Last 24 Hours (Table) 07/06/24 07/06/24 07/06/24 Range/Units 21:42 21:42 21:42 Hgb 10.6 L (11.4-16.0) gm/dL Hct (34.0-46.0) % MCV 63.9 L (80.0-100.0) fL MCH 19.7 L (25.0-35.0) pg MCHC 30.8 L (31.0-37.0) g/dL RDW 16.0 H (11.5-15.5) % Chloride (98-107) mmol/L Carbon Dioxide 20 L (22-30) mmol/L Glucose 319 H (74-99) mg/dL POC Glucose (mg/dL) (70-110) mg/dL Hemoglobin A1c 6.8 H (<=6.0) % AST 50 H (14-36) U/L ALT 44 H (4-34) U/L TSH (0.465-4.680) mIU/L 07/07/24 07/07/24 07/07/24 Range/Units 03:56 03:56 03:56 Hgb 9.9 L (11.4-16.0) gm/dL Hct 32.0 L (34.0-46.0) % MCV 63.0 L (80.0-100.0) fL MCH 19.4 L (25.0-35.0) pg MCHC 30.8 L (31.0-37.0) g/dL RDW 15.9 H (11.5-15.5) % Chloride 108 H (98-107) mmol/L Carbon Dioxide (22-30) mmol/L Glucose 136 H (74-99) mg/dL POC Glucose (mg/dL) (70-110) mg/dL Hemoglobin A1c (<=6.0) % AST 37 H (14-36) U/L ALT 38 H (4-34) U/L TSH 0.076 L (0.465-4.680) mIU/L 07/07/24 Range/Units 06:17 Hgb (11.4-16.0) gm/dL Hct (34.0-46.0) % MCV (80.0-100.0) fL MCH (25.0-35.0) pg MCHC (31.0-37.0) g/dL RDW (11.5-15.5) % Chloride (98-107) mmol/L Carbon Dioxide (22-30) mmol/L Glucose (74-99) mg/dL POC Glucose (mg/dL) 119 H (70-110) mg/dL Hemoglobin A1c (<=6.0) % AST (14-36) U/L ALT (4-34) U/L TSH (0.465-4.680) mIU/L
--- NOTE | 2024-07-07 12:13 | CA ---
Transthoracic Echo Report Name: Marita Cantu Age: 58 Gender: F : 1965 Exam Date: 07/07/2024 09:39 Exam Location: [facility] Ht (in): 66 Wt (lb): 167 Ordering Physician: Carrie Jewell Attending/Referring Phys: [id number], [employer] Powerplant Operator Radha Milian RDCS Procedure CPT: Indications: LVF Cardiac Hx: Technical Quality: Good Contrast 1: Total Dose (mL): Contrast 2: Total Dose (mL): MEASUREMENTS (Male / Female) Normal Values 2D ECHO LV Diastolic Diameter PLAX 4.8 cm 4.2 - 5.9 / 3.9 - 5.3 cm LV Systolic Diameter PLAX 3.2 cm IVS Diastolic Thickness 0.9 cm 0.6 - 1.0 / 0.6 - 0.9 cm LVPW Diastolic Thickness 1.1 cm 0.6 - 1.0 / 0.6 - 0.9 cm LV Relative Wall Thickness 0.4 LVOT Diameter 2.2 cm LV Diastolic Volume MOD BP 96.5 cm??? 67 - 155 / 56 - 104 cm??? LV Systolic Volume MOD BP 37.6 cm??? 22 - 58 / 19 - 49 cm??? LV Ejection Fraction MOD BP 61.0 % >= 55 % LV Cardiac Index MOD BP 1586.8 cm???/min???m??? LV Diastolic Volume MOD 4C 101.6 cm??? LV Systolic Volume MOD 4C 38.8 cm??? LV Ejection Fraction MOD 4C 61.8 % LV Cardiac Index MOD 4C 1692.4 cm???/min???m??? LV Diastolic Length 4C 7.1 cm LV Systolic Length 4C 5.9 cm LV Diastolic Volume MOD 2C 92.4 cm??? LV Systolic Volume MOD 2C 36.0 cm??? LV Ejection Fraction MOD 2C 61.0 % LV Cardiac Index MOD 2C 1516.0 cm???/min???m??? LV Diastolic Length 2C 7.1 cm LV Systolic Length 2C 5.8 cm LA Volume 67.4 cm??? 18 - 58 / 22 - 52 cm??? LA Volume Index 35.6 cm???/m??? 16 - 28 cm???/m??? Ascending Aorta Diameter 3.4 cm DOPPLER AV Peak Velocity 145.5 cm/s AV Peak Gradient 8.5 mmHg AV Mean Velocity 88.9 cm/s AV Mean Gradient 3.7 mmHg AV Velocity Time Integral 30.3 cm LVOT Peak Velocity 101.2 cm/s LVOT Peak Gradient 4.1 mmHg LVOT Velocity Time Integral 21.9 cm LVOT Stroke Volume 85.2 cm??? LVOT Stroke Volume Index 46.0 ml/m??? LVOT Cardiac Index 2292.9 cm???/min???m??? AV Area Cont Eq vti 2.8 cm??? AV Area Cont Eq pk 2.7 cm??? MV Area PHT 2.6 cm??? Mitral E Point Velocity 57.3 cm/s Mitral A Point Velocity 77.1 cm/s Mitral E to A Ratio 0.7 MV Deceleration Time 296.6 ms TR Peak Velocity 241.7 cm/s TR Peak Gradient 23.4 mmHg Right Atrial Pressure 5.0 mmHg Pulmonary Artery Systolic Pressu 28.4 mmHg Right Ventricular Systolic Press 28.4 mmHg PV Peak Velocity 79.2 cm/s PV Peak Gradient 2.5 mmHg FINDINGS Left Ventricle Left ventricular ejection fraction is estimated at 55-60 %. Mildly increased posterior wall thickness. Left ventricular cavity size normal. No obvious regional wall motion abnormalities. Right Ventricle Normal right ventricular size and function. Right Atrium Normal right atrial size. Left Atrium Moderately increased left atrial volume. Mildly increased left atrial area. Mitral Valve Structurally normal mitral valve. No evidence for mitral valve prolapse. No mitral stenosis. Trace mitral regurgitation. Aortic Valve Trileaflet aortic valve. No aortic valve stenosis or regurgitation. Tricuspid Valve Structurally normal tricuspid valve. No tricuspid stenosis. Mild tricuspid regurgitation. Pulmonic Valve Structurally normal pulmonic valve. No pulmonic stenosis. Trace pulmonic regurgitation. Pericardium No pericardial effusion. Aorta Normal size aortic root and proximal ascending aorta. CONCLUSIONS Normal LV size and systolic function. Mild concentric LVH. Mitral annular calcification and aortic valve sclerosis without restriction. Minimal mitral and tricuspid regurgitation. No pericardial effusion. No pulmonary hypertension Previewed by: Dr. Jesus Manuel Laguerre MD (Electronically Signed) Final Date: 07 July 2024 12:12
[2024-07-07 12:16] LABS: Glucose,Whole Blood 119 mg/dL (70-110)
--- NOTE | 2024-07-07 12:37 | P.CRDCN ---
History of Present Illness Consult date: 07/07/24 Consult reason: chest pain History of present illness: This is a 58-year-old female patient of Dr. Mijares with past medical history of hypertension, hyperlipidemia cardiomyopathy with a EF of 40 to 45%, invasive breast carcinoma diagnosed in 2020 status post lumpectomy chemotherapy and radiation therapy. We have been asked to evaluate the patient for chest pain. Patient states that she had some mid epigastric pain and went to the right side of her back but denies having any pain in her chest area. She has some tenderness in the epigastric area. She thought she was gas related pain and so she took a Gas-X and waited for about an hour but it did not seem to make any difference so she came into the hospital for evaluation. Patient last saw Dr. Mijares in 2021. She denies having any recent stress testing done. Blood pressure 142/75, heart rate 54, pulse ox 97% on room air. Patient is a non- smoker. She states she is normally able to walk up a flight of stairs with no dyspnea. Patient is currently n.p.o. and surgical evaluation in place. -EKG: Sinus rhythm with no acute ST-T wave changes. -Chest x-ray: No consolidation. -Gallbladder ultrasound: Gallbladder prominently distended with minimal echogenic sludge and layering echogenic subcentimeter gallstones. No associated acute cholecystitis. No biliary dilatation. -Laboratory studies: WBC 9.4 hemoglobin 9.9, creatinine 0.62, troponin negative x 3, TSH 0.076 with normal free T41.07. -Home cardiac medications: Atorvastatin 10 mg daily. -Echocardiogram performed 07/07/2024: Normal LV size and systolic function. Mild concentric LVH. Aortic valve sclerosis without restriction, mitral annular calcification, minimal mitral and tricuspid regurgitation. No pericardial effusion. No pulmonary hypertension. Review Of Systems: At the time of my exam: CONSTITUTIONAL: Denies fever or chills. HEENT: Denies blurred vision, vision changes, or eye pain. Denies hemoptysis CARDIOVASCULAR: Denies chest pain. Denies orthopnea. Denies PND. Denies palpitations RESPIRATORY: Denies shortness of breath. GASTROINTESTINAL: Denies abdominal pain. Denies nausea or vomiting. HEMATOLOGIC: Denies bleeding disorders. GENITOURINARY: Denies any blood in urine. SKIN: Denies puritis. Denies rash. Physical examination: Gen: This is a 58-year-old female in no acute distress. VS: reviewed HEENT: Head is atraumatic, normocephalic. Pupils equal, round. Sclerae is anicteric. NECK: Supple. No JVD. LUNGS: Clear to auscultation. No wheezes or rhonchi. No intercostal retractions. HEART: Regular rate and rhythm. No murmur. ABDOMEN: Soft mild epigastric tenderness. EXTREMITIES: No pedal edema. No calf tenderness. NEUROLOGICAL: Patient is awake, alert and oriented x3. Assessment: Epigastric pain Acute coronary syndrome ruled out Hypertension Hyperlipidemia History of cardiomyopathy with previous EF of 40 to 45% Invasive breast carcinoma status postlumpectomy chemotherapy and radiation therapy Plan: Resume atorvastatin Decrease IV fluids to 75 cc/h Patient is n.p.o. for general surgery consultation No further cardiac workup at this time At the time of discharge, patient may follow-up in the office with Dr. Mijares in 1 week. Thank you kindly for this consultation. Nurse practitioner note has been reviewed, I agree with documented findings and plan of care. Patient was seen and examined. Past Medical History Past Medical History: Cancer, Deep Vein Thrombosis (DVT), Hyperlipidemia, Hypertension, Osteoarthritis (OA) Additional Past Medical History / Comment(s): right breast cancer- currently on chemo last tx 12/15/20 History of Any Multi-Drug Resistant Organisms: None Reported Past Surgical History: Bariatric Surgery, Breast Surgery Additional Past Surgical History / Comment(s): Sinus surgery, breast implants, Gastric Bypass 2003, right breast lumpectomy September 2020 Past Anesthesia/Blood Transfusion Reactions: No Reported Reaction Past Psychological History: No Psychological Hx Reported Smoking Status: Former smoker Past Alcohol Use History: None Reported Past Drug Use History: None Reported - Past Family History Mother Family Medical History: No Reported History Medications and Allergies Home Medications Medication Instructions Recorded Confirmed Type Atorvastatin [Lipitor] 10 mg PO DAILY 08/03/20 07/07/24 History allopurinoL [Zyloprim] 300 mg PO DAILY 08/03/20 07/07/24 History metFORMIN HCL ER [Glucophage XR] 500 mg PO BID 12/20/20 07/07/24 History Anastrozole [Arimidex] 1 mg PO DAILY 03/16/24 07/07/24 History hydrOXYzine HCL 25 mg PO HS 03/16/24 07/07/24 History Biotin [Hoqn-Xtpv-Dvevx] 10,000 mcg PO DAILY 07/07/24 07/07/24 History Cholecalciferol [Vitamin D3 (125 125 mcg PO DAILY 07/07/24 07/07/24 History Mcg = 5000 Iu)] Allergies Allergy/AdvReac Type Severity Reaction Status Date / Time Penicillins Allergy Severe Rash/Hives Verified 07/07/24 07:30 Physical Exam Vitals: Vital Signs Temp Pulse Pulse Resp BP BP Pulse Ox 07/07/24 07:00 97.7 F 54 L 16 142/75 97 07/07/24 02:13 98.0 F 52 L 16 145/83 97 07/07/24 02:00 58 L 07/07/24 00:51 57 L 18 115/64 95 07/06/24 21:17 97 F L 66 15 185/96 100 Intake and Output 07/06/24 07/07/24 07/07/24 22:59 06:59 14:59 Other: Voiding Method Toilet # Voids 2 Weight 75.75 kg 75.75 kg Results 07/07/24 03:56 07/07/24 03:56 Cardiac Enzymes 07/06/24 07/06/24 07/07/24 Range/Units 21:42 21:42 01:38 AST 50 H (14-36) U/L Troponin I <0.012 <0.012 (0.000-0.034) ng/mL 07/07/24 07/07/24 Range/Units 03:56 03:56 AST 37 H (14-36) U/L Troponin I <0.012 (0.000-0.034) ng/mL Coagulation 07/06/24 Range/Units 21:42 PT 10.6 (10.0-12.5) sec APTT 22.7 (22.0-30.0) sec CBC 07/06/24 07/07/24 Range/Units 21:42 03:56 WBC 10.2 9.4 (3.8-10.6) k/uL RBC 5.40 5.09 (3.80-5.40) m/uL Hgb 10.6 L 9.9 L (11.4-16.0) gm/dL Hct 34.5 32.0 L (34.0-46.0) % Plt Count 200 183 (150-450) k/uL Comprehensive Metabolic Panel 07/06/24 07/07/24 Range/Units 21:42 03:56 Sodium 137 141 (137-145) mmol/L Potassium 4.0 4.5 (3.5-5.1) mmol/L Chloride 104 108 H (98-107) mmol/L Carbon Dioxide 20 L 24 (22-30) mmol/L BUN 13 11 (7-17) mg/dL Creatinine 0.72 0.62 (0.52-1.04) mg/dL Glucose 319 H 136 H (74-99) mg/dL Calcium 9.5 9.4 (8.4-10.2) mg/dL AST 50 H 37 H (14-36) U/L ALT 44 H 38 H (4-34) U/L Alkaline Phosphatase 99 81 (38-126) U/L Total Protein 7.5 6.7 (6.3-8.2) g/dL Albumin 4.6 3.9 (3.5-5.0) g/dL Current Medications Generic Name Dose Route Start Last Admin Trade Name Freq PRN Reason Stop Dose Admin Acetaminophen 650 mg 07/07/24 01:35 Acetaminophen Tab 325 Mg Tab PO Q6HR PRN Fever and/ or Pain Acetaminophen/Codeine Phosphate 2 each 07/07/24 02:15 Acetaminophen-Codeine 300-30mg Tab PO Q8HR PRN Pain Anastrozole 1 mg 07/07/24 09:00 Anastrozole 1 Mg Tab PO DAILY [facility] Aspirin 81 mg 07/07/24 09:00 Aspirin 81 Mg PO DAILY [facility] Atorvastatin Calcium 10 mg 07/07/24 09:00 Atorvastatin 10 Mg Tab PO DAILY [facility] Enoxaparin Sodium 40 mg 07/07/24 09:00 Enoxaparin 40 Mg/0.4 Ml Syringe SQ DAILY [facility] Sodium Chloride 1,000 mls @ 100 mls/hr 07/07/24 06:00 07/07/24 06:33 Saline 0.9% IV 100 mls/hr .Q10H ANALI Administration Ibuprofen 800 mg 07/07/24 01:36 Ibuprofen 800 Mg Tab PO TID PRN Pain Insulin Human Lispro 0 unit 07/07/24 07:30 07/07/24 06:30 Insulin Lispro (Humalog) 100 Unit/Ml 10 Ml Vl SQ Not Given ACHS [facility] Protocol Ketorolac Tromethamine 15 mg 07/07/24 03:00 07/07/24 06:33 Ketorolac 15 Mg/Ml 1 Ml Vial IVP 07/12/24 02:52 15 mg Q6HR ANALI Administration Nitroglycerin 0.4 mg 07/07/24 01:07 Nitroglycerin Sl Tabs 0.4 Mg Tab SUBLINGUAL Q5M PRN Chest Pain Pantoprazole Sodium 40 mg 07/07/24 07:30 07/07/24 06:34 Pantoprazole 40 Mg Tablet PO 40 mg [id number] ANALI Administration Intake and Output 07/06/24 07/07/24 07/07/24 22:59 06:59 14:59 Other: Voiding Method Toilet # Voids 2 Weight 75.75 kg 75.75 kg 07/07/24 03:56 07/07/24 03:56
--- NOTE | 2024-07-07 12:41 | P.GSCN ---
History of Present Illness Consult date: 07/07/24 History of present illness: CHIEF COMPLAINT: Epigastric abdominal pain HISTORY OF PRESENT ILLNESS: This is a 58-year-old female presented to the hospital with complaints of epigastric abdominal pain that started around 6 PM. Patient reports that the pain wraps around just below her bra. She has been nauseous. She reports having bowel movements. She does have a history of a gastric bypass in 2003 at [facility]. Patient had a gallbladder ultrasound completed that reported distended gallbladder, sludge and gallstones and no evidence of acute Yessy. Patient currently denies any chest pain. Patient being seen by cardiology. PAST MEDICAL HISTORY: Breast cancer completed chemotherapy 2020, history of DVT not on any blood thinners PAST SURGICAL HISTORY: Lumpectomy in 2020 breast cancer, gastric bypass surgery and appendectomy MEDICATIONS: See below ALLERGIES: See below SOCIAL HISTORY: No illicit drug use. REVIEW OF SYSTEMS: CONSTITUTIONAL: Denies fever or chills. HEENT: Denies blurred vision, vision changes, or eye pain. Denies hemoptysis CARDIOVASCULAR: Denies chest pain or pressure. RESPIRATORY: No shortness of breath. GASTROINTESTINAL: See HPI for pertinent findings HEMATOLOGIC: Denies bleeding disorders. GENITOURINARY: Denies any blood in urine or increased urinary frequency. SKIN: Denies pruitis. Denies rash. PHYSICAL EXAM: VITAL SIGNS: Reviewed GENERAL: Well-developed in no acute distress. HEENT: No sclera icterus. Extraocular movements grossly intact. Moist buccal mucosa. Head is atraumatic, normocephalic. No nasal drainage. ABDOMEN: Soft. Nondistended. Tenderness palpation to epigastric area. No rebound or guarding noted NEUROLOGIC: Alert and oriented. Cranial nerves II through XII grossly intact. LABORATORY DATA: WBC is 9.4 Hgb 9.9 platelets 183 Sodium is 141 potassium is 4.5 creatinine 0.62 Total bilirubin 0.6 AST 50-37 ALT 44-38 alk phos 81 Troponins negative x 3 Lactic acid 1.6 Lipase 64 IMAGING: Gallbladder ultrasound reports prominent distended gallbladder with minimal echogenic sludge and layering subcentimeter gallstones noted. However, no findings to suggest acute cholecystitis. No biliary dilatation. ASSESSMENT: 1. Epigastric abdominal pain 2. Distended gallbladder with sludge and gallstones noted on abdominal ultrasound 3. History of gastric bypass in 2003 PLAN: -HIDA scan ordered for further evaluation of gallbladder -Continue PPI -keep NPO for HIDA and then ok for regular diet -Further recommendations forthcoming per surgeon Physician Business Services Administrator note has been reviewed by physician. Signing provider agrees with the documented findings, assessment, and plan of care. Attestation Patient seen and examined at bedside. Presented with chief complaint of abdomin al pain in the epigastric region and this wrapped around her back. She states that her pain has since improved, however she is now having abdominal soreness throughout the abdomen. Of note, patient did have open gastric bypass surgery in 2003. Currently NPO. Ultrasound performed showing a distended gallbladder with some sludge and layering subcentimeter gallstones noted. Based on her current history, we will obtain HIDA scan for further evaluation. Case was discussed in depth with the patient. Patient is aware that if she requires surgery that attempt can be made for laparoscopic procedure, however she may require open procedure depending on amount of intra-abdominal adhesions. Landon Ortega DO Past Medical History Past Medical History: Cancer, Deep Vein Thrombosis (DVT), Hyperlipidemia, Hypertension, Osteoarthritis (OA) Additional Past Medical History / Comment(s): right breast cancer- currently on chemo last tx 12/15/20 History of Any Multi-Drug Resistant Organisms: None Reported Past Surgical History: Bariatric Surgery, Breast Surgery Additional Past Surgical History / Comment(s): Sinus surgery, breast implants, Gastric Bypass 2003, right breast lumpectomy September 2020 Past Anesthesia/Blood Transfusion Reactions: No Reported Reaction Past Psychological History: No Psychological Hx Reported Smoking Status: Former smoker Past Alcohol Use History: None Reported Past Drug Use History: None Reported - Past Family History Mother Family Medical History: No Reported History Medications and Allergies Home Medications Medication Instructions Recorded Confirmed Type Atorvastatin [Lipitor] 10 mg PO DAILY 08/03/20 07/07/24 History allopurinoL [Zyloprim] 300 mg PO DAILY 08/03/20 07/07/24 History metFORMIN HCL ER [Glucophage XR] 500 mg PO BID 12/20/20 07/07/24 History Anastrozole [Arimidex] 1 mg PO DAILY 03/16/24 07/07/24 History hydrOXYzine HCL 25 mg PO HS 03/16/24 07/07/24 History Biotin [Rhaa-Wilz-Skybl] 10,000 mcg PO DAILY 07/07/24 07/07/24 History Cholecalciferol [Vitamin D3 (125 125 mcg PO DAILY 07/07/24 07/07/24 History Mcg = 5000 Iu)] Allergies Allergy/AdvReac Type Severity Reaction Status Date / Time Penicillins Allergy Severe Rash/Hives Verified 07/07/24 07:30 Surgical - Exam Osteopathic Statement: *. No significant issues noted on an osteopathic structural exam other than those noted in the History and Physical/Consult. Vital Signs Temp Pulse Resp BP Pulse Ox 97 F L 66 15 185/96 100 07/06/24 21:17 07/06/24 21:17 07/06/24 21:17 07/06/24 21:17 07/06/24 21:17 Results - Labs 07/07/24 03:56 07/07/24 03:56 Abnormal Lab Results - Last 24 Hours (Table) 07/06/24 07/06/24 07/06/24 Range/Units 21:42 21:42 21:42 Hgb 10.6 L (11.4-16.0) gm/dL Hct (34.0-46.0) % MCV 63.9 L (80.0-100.0) fL MCH 19.7 L (25.0-35.0) pg MCHC 30.8 L (31.0-37.0) g/dL RDW 16.0 H (11.5-15.5) % Chloride (98-107) mmol/L Carbon Dioxide 20 L (22-30) mmol/L Glucose 319 H (74-99) mg/dL POC Glucose (mg/dL) (70-110) mg/dL Hemoglobin A1c 6.8 H (<=6.0) % AST 50 H (14-36) U/L ALT 44 H (4-34) U/L TSH (0.465-4.680) mIU/L 07/07/24 07/07/24 07/07/24 Range/Units 03:56 03:56 03:56 Hgb 9.9 L (11.4-16.0) gm/dL Hct 32.0 L (34.0-46.0) % MCV 63.0 L (80.0-100.0) fL MCH 19.4 L (25.0-35.0) pg MCHC 30.8 L (31.0-37.0) g/dL RDW 15.9 H (11.5-15.5) % Chloride 108 H (98-107) mmol/L Carbon Dioxide (22-30) mmol/L Glucose 136 H (74-99) mg/dL POC Glucose (mg/dL) (70-110) mg/dL Hemoglobin A1c (<=6.0) % AST 37 H (14-36) U/L ALT 38 H (4-34) U/L TSH 0.076 L (0.465-4.680) mIU/L 07/07/24 Range/Units 06:17 Hgb (11.4-16.0) gm/dL Hct (34.0-46.0) % MCV (80.0-100.0) fL MCH (25.0-35.0) pg MCHC (31.0-37.0) g/dL RDW (11.5-15.5) % Chloride (98-107) mmol/L Carbon Dioxide (22-30) mmol/L Glucose (74-99) mg/dL POC Glucose (mg/dL) 119 H (70-110) mg/dL Hemoglobin A1c (<=6.0) % AST (14-36) U/L ALT (4-34) U/L TSH (0.465-4.680) mIU/L Diabetes panel 07/06/24 07/06/24 07/07/24 Range/Units 21:42 21:42 03:56 Sodium 137 141 (137-145) mmol/L Potassium 4.0 4.5 (3.5-5.1) mmol/L Chloride 104 108 H (98-107) mmol/L Carbon Dioxide 20 L 24 (22-30) mmol/L BUN 13 11 (7-17) mg/dL Creatinine 0.72 0.62 (0.52-1.04) mg/dL Glucose 319 H 136 H (74-99) mg/dL Hemoglobin A1c 6.8 H (<=6.0) % Calcium 9.5 9.4 (8.4-10.2) mg/dL AST 50 H 37 H (14-36) U/L ALT 44 H 38 H (4-34) U/L Alkaline Phosphatase 99 81 (38-126) U/L Total Protein 7.5 6.7 (6.3-8.2) g/dL Albumin 4.6 3.9 (3.5-5.0) g/dL Thyroid panel 07/07/24 Range/Units 03:56 TSH 0.076 L (0.465-4.680) mIU/L Calcium panel 07/06/24 07/07/24 Range/Units 21:42 03:56 Calcium 9.5 9.4 (8.4-10.2) mg/dL Albumin 4.6 3.9 (3.5-5.0) g/dL Pituitary panel 07/06/24 07/07/24 07/07/24 Range/Units 21:42 03:56 03:56 Sodium 137 141 (137-145) mmol/L Potassium 4.0 4.5 (3.5-5.1) mmol/L Chloride 104 108 H (98-107) mmol/L Carbon Dioxide 20 L 24 (22-30) mmol/L BUN 13 11 (7-17) mg/dL Creatinine 0.72 0.62 (0.52-1.04) mg/dL Glucose 319 H 136 H (74-99) mg/dL Calcium 9.5 9.4 (8.4-10.2) mg/dL TSH 0.076 L (0.465-4.680) mIU/L Adrenal panel 07/06/24 07/07/24 Range/Units 21:42 03:56 Sodium 137 141 (137-145) mmol/L Potassium 4.0 4.5 (3.5-5.1) mmol/L Chloride 104 108 H (98-107) mmol/L Carbon Dioxide 20 L 24 (22-30) mmol/L BUN 13 11 (7-17) mg/dL Creatinine 0.72 0.62 (0.52-1.04) mg/dL Glucose 319 H 136 H (74-99) mg/dL Calcium 9.5 9.4 (8.4-10.2) mg/dL Total Bilirubin 0.6 0.6 (0.2-1.3) mg/dL AST 50 H 37 H (14-36) U/L ALT 44 H 38 H (4-34) U/L Alkaline Phosphatase 99 81 (38-126) U/L Total Protein 7.5 6.7 (6.3-8.2) g/dL Albumin 4.6 3.9 (3.5-5.0) g/dL
[2024-07-07] MEDS: ANASTROZOLE 1 MG TAB PO SCH (16:17)
[2024-07-07] MEDS: ATORVASTATIN 10 MG TAB PO SCH (16:17)
[2024-07-07] MEDS: ASPIRIN 81 MG PO SCH (16:17)
[2024-07-07 17:04] LABS: Glucose,Whole Blood 127 mg/dL (70-110)
--- NOTE | 2024-07-07 18:41 | NM ---
EXAMINATION TYPE: NM hepatobiliary wo EF DATE OF EXAM: 07/07/2024 6:11 PM COMPARISON: Ultrasound study dated 07/06/2024. CLINICAL INDICATION:Female, 58 years old with history of epigastric abdominal pain, r/o acute renee; TECHNIQUE: The patient was given 5 mCi of Technetium 99m-Mebrofenin as a radiotracer and multiple sc intigraphic images were obtained of the abdomen. FINDINGS: Gallbladder not visualized at 60 minutes and on delayed 4 hour imaging suggestive of acute cholecysti tis. There is radiotracer within the small bowel. Hyperemic changes noted in the liver near the Doppl er fossa region. IMPRESSION: 1. Findings consistent with acute cholecystitis. Surgical consultation recommended if not already pe rformed. 2. No CBD obstruction. [facility], , 07/07/2024 6:38 PM
[2024-07-07 20:07] LABS: Glucose,Whole Blood 312 mg/dL (70-110)
[2024-07-07] MEDS: Acetaminophen-Codeine 300-30mg TAB PO PRN (21:03)
[2024-07-08 05:50] LABS: Glucose,Whole Blood 113 mg/dL (70-110)
[2024-07-08 08:36] LABS: Chol/HDL Ratio 2.95 Ratio; LDL Cholesterol,Calculated 53.3 mg/dL (0.0-131.0)
[2024-07-08 08:43] LABS: Anisocytosis Slight; Basophils % (A) 0 %; Eosinophils # (A) 0.2 k/uL (0-0.7); Eosinophils % (A) 2 %; HCT 31.9 % (34.0-46.0); Hypochromasia Marked; Lymphocytes # (A) 1.9 k/uL (1.0-4.8); Lymphocytes % (A) 28 %; MCH 20.2 pg (25.0-35.0); MCHC 31.3 g/dL (31.0-37.0); MCV 64.4 fL (80.0-100.0); Mean Platelet Volume 7.2; Microcytosis Marked; Monocytes # (A) 0.5 k/uL (0-1.0); Monocytes % (A) 7 %; Neutrophils # (A) 4.1 k/uL (1.3-7.7); Neutrophils % (A) 60 %; Platelet Count 176 k/uL (150-450); Poikilocytosis Slight; RBC 4.96 m/uL (3.80-5.40); RDW 16.3 % (11.5-15.5); WBC 6.9 k/uL (3.8-10.6)
[2024-07-08] MEDS ORDERED: ASPIRIN 325 MG TAB PO SCH (09:00)
[2024-07-08 09:01] LABS: ALT 36 U/L (4-34); AST 40 U/L (14-36); African American GFR (CKD) >90 (>60 ml/min/1.73 sqM); Albumin 3.6 g/dL (3.5-5.0); Albumin/Globulin Ratio 1.3; Alkaline Phosphatase 81 U/L (38-126); Anion Gap 8 mmol/L; Blood Urea Nitrogen 11 mg/dL (7-17); Calcium 8.7 mg/dL (8.4-10.2); Carbon Dioxide 23 mmol/L (22-30); Chloride 110 mmol/L (98-107); Globulin 2.7 g/dL; Glucose 120 mg/dL (74-99); Non-African American GFR(CKD) >90 (>60 ml/min/1.73 sqM); Potassium 4.5 mmol/L (3.5-5.1); Sodium 141 mmol/L (137-145); Total Bilirubin 0.6 mg/dL (0.2-1.3); Total Protein 6.3 g/dL (6.3-8.2)
--- NOTE | 2024-07-08 09:32 | P.PN ---
Subjective Progress Note Date: 07/08/24 Consult reason: chest pain History of present illness: This is a 58-year-old female patient of Dr. Mijares with past medical history of hypertension, hyperlipidemia cardiomyopathy with a EF of 40 to 45%, invasive breast carcinoma diagnosed in 2020 status post lumpectomy chemotherapy and radiation therapy. We have been asked to evaluate the patient for chest pain. Patient states that she had some mid epigastric pain and went to the right side of her back but denies having any pain in her chest area. She has some tenderness in the epigastric area. She thought she was gas related pain and so she took a Gas-X and waited for about an hour but it did not seem to make any difference so she came into the hospital for evaluation. Patient last saw Dr. Mijares in 2021. She denies having any recent stress testing done. Blood pressure 142/75, heart rate 54, pulse ox 97% on room air. Patient is a non- smoker. She states she is normally able to walk up a flight of stairs with no dyspnea. Patient is currently n.p.o. and surgical evaluation in place. -EKG: Sinus rhythm with no acute ST-T wave changes. -Chest x-ray: No consolidation. -Gallbladder ultrasound: Gallbladder prominently distended with minimal echogenic sludge and layering echogenic subcentimeter gallstones. No associated acute cholecystitis. No biliary dilatation. -Laboratory studies: WBC 9.4 hemoglobin 9.9, creatinine 0.62, troponin negative x 3, TSH 0.076 with normal free T41.07. -Home cardiac medications: Atorvastatin 10 mg daily. -Echocardiogram performed 07/07/2024: Normal LV size and systolic function. Mild concentric LVH. Aortic valve sclerosis without restriction, mitral annular calcification, minimal mitral and tricuspid regurgitation. No pericardial effusion. No pulmonary hypertension. 07/08 Patient seen and examined. Echocardiogram reviewed with the patient. She has subsequently underwent HIDA scan and general surgery is planning for cholecystectomy. Echocardiogram reveals normal LV size and systolic function. Mild concentric LVH. Mitral annular calcification and aortic valve sclerosis without restriction. Minimal mitral and tricuspid regurgitation. No pericardial effusion. No pulmonary hypertension. Blood pressure 105/68, heart rate 55, pulse ox 95% on room air. Repeat blood work reveals hemoglobin 10, creatinine 0.63. Physical examination: Gen: This is a 58-year-old female in no acute distress. VS: reviewed LUNGS: Clear to auscultation. No wheezes or rhonchi. No intercostal retractions. HEART: Regular rate and rhythm. No murmur. ABDOMEN: Soft mild epigastric tenderness. EXTREMITIES: No pedal edema. No calf tenderness. NEUROLOGICAL: Patient is awake, alert and oriented x3. Assessment: Epigastric pain Acute coronary syndrome ruled out Hypertension Hyperlipidemia History of cardiomyopathy with previous EF of 40 to 45% Invasive breast carcinoma status postlumpectomy chemotherapy and radiation therapy Plan: Continue atorvastatin Continue IV fluids to 75 cc/h Patient is n.p.o. for general surgery consultation Patient is cleared for cholecystectomy as planned by general surgery with average risk of cardiovascular complications. No absolute contraindications for surgery. At the time of discharge, patient may follow-up in the office with Dr. Mijares in 1 week. Nurse practitioner note has been reviewed, I agree with documented findings and plan of care. Patient was seen and examined. Objective - Vital Signs Vital signs: Vital Signs Temp 98.3 F 07/08/24 07:00 Pulse 55 L 07/08/24 07:00 Resp 17 07/08/24 07:00 BP 105/68 07/08/24 07:00 Pulse Ox 95 07/08/24 07:00 FiO2 Intake & Output 07/07/24 07/08/24 07/08/24 18:59 06:59 18:59 Other: Voiding Method Toilet Toilet # Voids 2 3 - Labs CBC & Chem 7: 07/08/24 08:29 07/08/24 08:29 Labs: Abnormal Lab Results - Last 24 Hours (Table) 07/06/24 07/07/24 07/07/24 Range/Units 21:42 12:15 17:02 POC Glucose (mg/dL) 119 H 127 H (70-110) mg/dL Hemoglobin A1c 6.8 H (<=6.0) % 07/07/24 07/08/24 Range/Units 20:04 05:49 POC Glucose (mg/dL) 312 H 113 H (70-110) mg/dL Hemoglobin A1c (<=6.0) %
--- NOTE | 2024-07-08 12:11 | P.PN ---
Subjective Progress Note Date: 07/08/24 SURGICAL PROGRESS NOTE CHIEF COMPLAINT: Epigastric abdominal pain HISTORY OF PRESENT ILLNESS: Patient reports after eating last night she had another episode of the epigastric abdominal pain that wrapped around her back. She denies any nausea or vomiting. HIDA scan completed and reported findings consistent with acute cholecystitis. Patient is afebrile. WBC 6.9 hgb 10 total bili 0.6 AST 40 ALT 36 alk phos 81. Patient seen by cardiology service and reported average risk for surgery no contraindication to proceed with surgery PHYSICAL EXAM: VITAL SIGNS: Reviewed. GENERAL: Well-developed in no acute distress. HEENT: No sclera icterus. Extraocular movements grossly intact. Moist buccal mucosa. Head is atraumatic, normocephalic. ABDOMEN: Soft. Nondistended. Epigastric tenderness with palpation NEUROLOGIC: Alert and oriented. Cranial nerves II through XII grossly intact. ASSESSMENT: 1. Acute cholecystitis. Positive HIDA scan. Gallbladder ultrasound with sludge and gallstones PLAN: -Patient scheduled for Robotic cholecystectomy tomorrow with Dr. Trujillo -Low-fat diet today -N.p.o. after midnight -Start antibiotics, Rocephin and Flagyl -Continue pain management -Repeat labs in a.m. Physician Mapper note has been reviewed by physician. Signing provider agrees with the documented findings, assessment, and plan of care. Attestation Patient seen and examined at bedside on 07/08/2024. Presented with chief complaint of epigastric abdominal pain. HIDA scan is noted to be positive. Patient is scheduled for robotic cholecystectomy. Patient can have diet today with n.p.o. after midnight. Continue antibiotics. Landon Ortega DO Objective - Vital Signs Vital signs: Vital Signs Temp 98.3 F 07/08/24 07:00 Pulse 55 L 07/08/24 07:00 Resp 17 07/08/24 07:00 BP 105/68 07/08/24 07:00 Pulse Ox 95 07/08/24 07:00 FiO2 Intake & Output 07/07/24 07/08/24 07/08/24 18:59 06:59 18:59 Other: Voiding Method Toilet Toilet # Voids 2 3 - Labs CBC & Chem 7: 07/10/24 04:15 07/10/24 04:15 Labs: Abnormal Lab Results - Last 24 Hours (Table) 07/07/24 07/07/24 07/07/24 Range/Units 03:56 12:15 17:02 Chloride (98-107) mmol/L Glucose (74-99) mg/dL POC Glucose (mg/dL) 119 H 127 H (70-110) mg/dL AST (14-36) U/L ALT (4-34) U/L HDL Cholesterol 39.70 L (40.00-60.00) mg/dL 07/07/24 07/08/24 07/08/24 Range/Units 20:04 05:49 08:29 Chloride 110 H (98-107) mmol/L Glucose 120 H (74-99) mg/dL POC Glucose (mg/dL) 312 H 113 H (70-110) mg/dL AST 40 H (14-36) U/L ALT 36 H (4-34) U/L HDL Cholesterol (40.00-60.00) mg/dL
--- NOTE | 2024-07-08 12:27 | P.PN ---
Subjective Progress Note Date: 07/08/24 Hospital course: Patient is a 58-year-old female with a past medical history of hypertension, hyperlipidemia, [id number] diabetes mellitus, history of DVT status post IVC filter, and breast cancer status postchemotherapy and radiation currently in remission. She presented the hospital on 07/06/2024 with a chief complaint of epigastric pain/right flank pain. Upon arrival to our facility, patient underwent evaluation in the emergency department. Vital signs upon arrival show blood pressure 185/96, heart rate 66, respiratory rate 15, temp 97.0 F, and SpO2 100% on room air. EKG completed showing normal sinus rhythm at 61 bpm with no noted T wave or ST abnormality showing no signs of acute ischemia upon personal review and interpretation. Chest x-ray completed negative for acute cardiopulmonary process. Ultrasound right upper quadrant completed showing gallbladder prominently distended with minimal echogenic sludge and layering echogenic subcentimeter gallstones noted however negative findings for acute cholecystitis, no biliary dilation. Labs completed and reviewed. CBC showing microcytic anemia with hemoglobin of 10.6 and MCV of 63.9. Coagulation profile normal findings. D-dimer negative at 0.54. BMP s howing mild high anion gap metabolic acidosis with chloride of 104, bicarb of 20, and anion gap of 13. Blood glucose was elevated at 319. Magnesium was low at 1.6 and liver enzymes elevated with AST of 50, ALT of 44, and alkaline phosphatase of 99. Troponin was negative at less than 0.012. Amylase and lipase normal findings. Patient admitted under our services with consultation to cardiology and general surgery. Troponins trended overnight all negative at less than 0.012 x 3 draws. Echocardiogram revealed preserved EF of 55 to 60%. HIDA scan completed showing findings consistent with acute cholecystitis. Physical exam: Patient seen and fully evaluated at bedside this morning. She reports currently pain in right upper quadrant and is controlled but returns with palpation. Denies feeling nausea or having any further episodes of vomiting. Denies headache, lightheadedness, dizziness, chest pain, palpitations, or shortness of breath. Vital signs reviewed and stable. General: Nontoxic, no distress and appears stated age. Derm: Skin warm and dry, normal coloration for ethnicity. Head: Atraumatic, normocephalic and symmetric. Eyes: EOM's intact, no lid lag, and anicteric sclera Mouth: no lip lesions, mucus membranes moist Cardiovascular: regular rate and rhythm with normal S1S2, no murmur, positive posterior tibial pulses bilaterally, and cap refill < 2 seconds. Lungs: Respirations even, regular, and unlabored on room air. Lungs CTA bilaterally, no rhonchi, no rales, no wheezing, and no accessory muscle usage. Abdominal: soft, nontender to palpation, no guarding, no appreciable organomegaly Ext: ROM intact. No gross muscle atrophy, no edema, no contractures Neuro: Speech clear, face symmetrical and CN II-XII grossly intact with no noted focal neuro deficits Psych: Alert and oriented to person, place, time, and situation. Appropriate and pleasant affect. Assessment and Plan of Care: Acute cholecystitis Transaminitis, secondary to above -HIDA scan showing findings consistent with acute cholecystitis -General Surgery following, discussed plan of care with general surgery PA patient scheduled to undergo cholecystectomy tomorrow morning. -Cardiology evaluated, discussed plan of care with cardiac BRUSHER MACHINE. Acute coronary event ruled out stating patient with history of cardiomyopathy with previous EF of 40 to 45% and now showing preserved EF. Cardiology clearing patient from their perspective to proceed with cholecystectomy for acute cholecystitis. -Repeat echocardiogram showing preserved EF of 55-60%. -Telemetry monitoring -Continue low-fat diet, NPO at midnight -Patient started on IV antibiotics with Rocephin 1 g daily and Flagyl 500 mg every 8 hours. -Continue symptomatic care and pain management with Zofran 4 mg IVP every 8 hours as needed for nausea and vomiting, Tylenol 650 mg every 6 hours as needed for mild pain/fever, [employer] 5-325 mg tablets every 4 hours as needed for moderate pain, and morphine 4 mg IVP every 4 hours as needed for severe pain. 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 History of DVT -DVT prophylaxis with Lovenox 40 mg daily. History of breast cancer, currently in remission. -Continue outpatient follow-up with yearly cancer screenings and monthly self breast exams. Data and imaging reviewed: Vital signs reviewed. Blood pressure 105/68, heart rate 55, respiratory rate 17, temp 98.3 F, and SpO2 of 95% on room air. Labs completed and reviewed. CBC showing microcytic anemia with hemoglobin of 10.0 and MCV of 64.4. BMP showing mild hyperchloremia with chloride of 110 otherwise normal findings. Blood glucose was 120. Liver profile showing elevated AST of 40 and ALT of 36 CODE STATUS Full code DVT prophylaxis: Lovenox Discussed with: Patient, RN, cardiac BRUSHER MACHINE and general surgery PA. Anticipated discharge date: Pending clinical course Anticipated discharge place: Home Patient was seen independently by Nurse Pracitioner. This document was prepared using [employer] dictation software. Please allow for errors in shank taper, while rare they do occur. Mika Gaspar, AALIYAH rendered care for this patient independently, reviewed the findings and plan as documented in the note above and agree with plan. I did not physically speak with or examine the patient on this date. Objective - Vital Signs Vital signs: Vital Signs Temp 98.3 F 07/08/24 07:00 Pulse 55 L 07/08/24 07:00 Resp 17 07/08/24 07:00 BP 105/68 07/08/24 07:00 Pulse Ox 95 07/08/24 07:00 FiO2 Intake & Output 07/07/24 07/08/24 07/08/24 18:59 06:59 18:59 Other: Voiding Method Toilet Toilet # Voids 2 3 - Labs CBC & Chem 7: 07/08/24 08:29 07/08/24 08:29 Labs: Abnormal Lab Results - Last 24 Hours (Table) 07/07/24 07/07/24 07/07/24 Range/Units 03:56 12:15 17:02 Chloride (98-107) mmol/L Glucose (74-99) mg/dL POC Glucose (mg/dL) 119 H 127 H (70-110) mg/dL AST (14-36) U/L ALT (4-34) U/L HDL Cholesterol 39.70 L (40.00-60.00) mg/dL 07/07/24 07/08/24 07/08/24 Range/Units 20:04 05:49 08:29 Chloride 110 H (98-107) mmol/L Glucose 120 H (74-99) mg/dL POC Glucose (mg/dL) 312 H 113 H (70-110) mg/dL AST 40 H (14-36) U/L ALT 36 H (4-34) U/L HDL Cholesterol (40.00-60.00) mg/dL
[2024-07-08 12:48] LABS: Glucose,Whole Blood 309 mg/dL (70-110)
[2024-07-08] MEDS ORDERED: ACETAMINOPHEN TAB 325 MG TAB PO PRN (16:46)
[2024-07-08] MEDS ORDERED: HYDROcodone/APAP 5-325MG 1 EACH TAB PO PRN (16:46)
[2024-07-08] MEDS ORDERED: MORPHINE SULFATE 4 MG/ML SYRINGE IV PRN (16:46)
[2024-07-08] MEDS: metroNIDAZOLE-NS PMX 500 MG in SALINE 1 100ML.BAG IVPB SCH (16:49)
[2024-07-08 17:51] LABS: Glucose,Whole Blood 85 mg/dL (70-110)
[2024-07-08 19:10] LABS: Glucose,Whole Blood 190 mg/dL (70-110)
[2024-07-09 06:20] LABS: Glucose,Whole Blood 117 mg/dL (70-110)
[2024-07-09 07:14] LABS: ALT 31 U/L (4-34); AST 32 U/L (14-36); African American GFR (CKD) >90 (>60 ml/min/1.73 sqM); Albumin 3.3 g/dL (3.5-5.0); Albumin/Globulin Ratio 1.4; Alkaline Phosphatase 83 U/L (38-126); Anion Gap 8 mmol/L; Blood Urea Nitrogen 10 mg/dL (7-17); Calcium 8.7 mg/dL (8.4-10.2); Carbon Dioxide 23 mmol/L (22-30); Chloride 110 mmol/L (98-107); Globulin 2.4 g/dL; Glucose 117 mg/dL (74-99); Non-African American GFR(CKD) >90 (>60 ml/min/1.73 sqM); Potassium 4.2 mmol/L (3.5-5.1); Sodium 141 mmol/L (137-145); Total Bilirubin 0.5 mg/dL (0.2-1.3); Total Protein 5.7 g/dL (6.3-8.2)
[2024-07-09 07:30] LABS: Anisocytosis Slight; Basophils % (A) 1 %; Eosinophils # (A) 0.2 k/uL (0-0.7); Eosinophils % (A) 3 %; HCT 29.8 % (34.0-46.0); Hypochromasia Moderate; Lymphocytes % (A) 37 %; MCH 19.4 pg (25.0-35.0); MCHC 30.3 g/dL (31.0-37.0); MCV 63.9 fL (80.0-100.0); Mean Platelet Volume 7.5; Microcytosis Marked; Monocytes # (A) 0.5 k/uL (0-1.0); Monocytes % (A) 10 %; Neutrophils # (A) 2.5 k/uL (1.3-7.7); Neutrophils % (A) 46 %; Platelet Count 176 k/uL (150-450); Poikilocytosis Slight; RBC 4.66 m/uL (3.80-5.40); RDW 16.2 % (11.5-15.5); WBC 5.5 k/uL (3.8-10.6)
--- NOTE | 2024-07-09 07:50 | P.PN ---
Subjective Progress Note Date: 07/09/24 Consult reason: chest pain History of present illness: This is a 58-year-old female patient of Dr. Mijares with past medical history of hypertension, hyperlipidemia cardiomyopathy with a EF of 40 to 45%, invasive breast carcinoma diagnosed in 2020 status post lumpectomy chemotherapy and radiation therapy. We have been asked to evaluate the patient for chest pain. Patient states that she had some mid epigastric pain and went to the right side of her back but denies having any pain in her chest area. She has some tenderness in the epigastric area. She thought she was gas related pain and so she took a Gas-X and waited for about an hour but it did not seem to make any difference so she came into the hospital for evaluation. Patient last saw Dr. Mijares in 2021. She denies having any recent stress testing done. Blood pressure 142/75, heart rate 54, pulse ox 97% on room air. Patient is a non- smoker. She states she is normally able to walk up a flight of stairs with no dyspnea. Patient is currently n.p.o. and surgical evaluation in place. -EKG: Sinus rhythm with no acute ST-T wave changes. -Chest x-ray: No consolidation. -Gallbladder ultrasound: Gallbladder prominently distended with minimal echogenic sludge and layering echogenic subcentimeter gallstones. No associated acute cholecystitis. No biliary dilatation. -Laboratory studies: WBC 9.4 hemoglobin 9.9, creatinine 0.62, troponin negative x 3, TSH 0.076 with normal free T41.07. -Home cardiac medications: Atorvastatin 10 mg daily. -Echocardiogram performed 07/07/2024: Normal LV size and systolic function. Mild concentric LVH. Aortic valve sclerosis without restriction, mitral annular calcification, minimal mitral and tricuspid regurgitation. No pericardial effusion. No pulmonary hypertension. 07/08 Patient seen and examined. Echocardiogram reviewed with the patient. She has subsequently underwent HIDA scan and general surgery is planning for cholecystectomy. Echocardiogram reveals normal LV size and systolic function. Mild concentric LVH. Mitral annular calcification and aortic valve sclerosis without restriction. Minimal mitral and tricuspid regurgitation. No pericardial effusion. No pulmonary hypertension. Blood pressure 105/68, heart rate 55, pulse ox 95% on room air. Repeat blood work reveals hemoglobin 10, creatinine 0.63. 07/09 Patient seen and examined. Patient is scheduled for cholecystectomy today. Blood pressure 123/75, heart rate 77, pulse ox 97% on room air. Patient has been afebrile. Repeat blood work reveals WBC 5.5, hemoglobin 9, creatinine 0.61. Physical examination: Gen: This is a 58-year-old female in no acute distress. VS: reviewed LUNGS: Clear to auscultation. No wheezes or rhonchi. No intercostal retraction s. HEART: Regular rate and rhythm. No murmur. ABDOMEN: Soft mild epigastric tenderness. EXTREMITIES: No pedal edema. No calf tenderness. NEUROLOGICAL: Patient is awake, alert and oriented x3. Assessment: Epigastric pain Acute coronary syndrome ruled out Hypertension Hyperlipidemia History of cardiomyopathy with previous EF of 40 to 45% Invasive breast carcinoma status postlumpectomy chemotherapy and radiation therapy Plan: Continue atorvastatin Continue IV fluids to 75 cc/h Patient is n.p.o. for general surgery Patient is cleared for cholecystectomy as planned by general surgery with ave rage risk of cardiovascular complications. No absolute contraindications for surgery. At the time of discharge, patient may follow-up in the office with Dr. Mijares in 1 week. Nurse practitioner note has been reviewed, I agree with documented findings and plan of care. Patient was seen and examined. Objective - Vital Signs Vital signs: Vital Signs Temp 98.2 F 07/09/24 02:00 Pulse 77 07/09/24 02:00 Resp 17 07/09/24 02:00 BP 123/75 07/09/24 02:00 Pulse Ox 97 07/09/24 02:00 FiO2 Intake & Output 07/08/24 07/09/24 07/09/24 18:59 06:59 18:59 Intake Total 236 Balance 236 Intake: Oral 236 Other: Voiding Method Toilet Toilet # Voids 3 2 - Labs CBC & Chem 7: 07/09/24 06:10 07/09/24 06:10 Labs: Abnormal Lab Results - Last 24 Hours (Table) 07/07/24 07/08/24 07/08/24 Range/Units 03:56 08:29 08:29 Hgb 10.0 L (11.4-16.0) gm/dL Hct 31.9 L (34.0-46.0) % MCV 64.4 L (80.0-100.0) fL MCH 20.2 L (25.0-35.0) pg MCHC (31.0-37.0) g/dL RDW 16.3 H (11.5-15.5) % Chloride 110 H (98-107) mmol/L Glucose 120 H (74-99) mg/dL POC Glucose (mg/dL) (70-110) mg/dL AST 40 H (14-36) U/L ALT 36 H (4-34) U/L Total Protein (6.3-8.2) g/dL Albumin (3.5-5.0) g/dL HDL Cholesterol 39.70 L (40.00-60.00) mg/dL 07/08/24 07/08/24 07/09/24 Range/Units 12:47 19:09 06:09 Hgb (11.4-16.0) gm/dL Hct (34.0-46.0) % MCV (80.0-100.0) fL MCH (25.0-35.0) pg MCHC (31.0-37.0) g/dL RDW (11.5-15.5) % Chloride (98-107) mmol/L Glucose (74-99) mg/dL POC Glucose (mg/dL) 309 H 190 H 117 H (70-110) mg/dL AST (14-36) U/L ALT (4-34) U/L Total Protein (6.3-8.2) g/dL Albumin (3.5-5.0) g/dL HDL Cholesterol (40.00-60.00) mg/dL 07/09/24 07/09/24 Range/Units 06:10 06:10 Hgb 9.0 L (11.4-16.0) gm/dL Hct 29.8 L (34.0-46.0) % MCV 63.9 L (80.0-100.0) fL MCH 19.4 L (25.0-35.0) pg MCHC 30.3 L (31.0-37.0) g/dL RDW 16.2 H (11.5-15.5) % Chloride 110 H (98-107) mmol/L Glucose 117 H (74-99) mg/dL POC Glucose (mg/dL) (70-110) mg/dL AST (14-36) U/L ALT (4-34) U/L Total Protein 5.7 L (6.3-8.2) g/dL Albumin 3.3 L (3.5-5.0) g/dL HDL Cholesterol (40.00-60.00) mg/dL
--- NOTE | 2024-07-09 10:25 | P.PN ---
Subjective Pt seen and evaluated at bedside. Patient continues to have abdominal pain, but denies nausea, vomiting, fevers, chills, shortness of breathing or chest pain. Objective - Vital Signs Vital signs: Vital Signs Temp 98.4 F 07/09/24 09:38 Pulse 51 L 07/09/24 09:38 Resp 17 07/09/24 09:38 BP 157/86 07/09/24 09:38 Pulse Ox 97 07/09/24 09:38 FiO2 Intake & Output 07/08/24 07/09/24 07/09/24 18:59 06:59 18:59 Intake Total 236 Balance 236 Intake: Oral 236 Other: Voiding Method Toilet Toilet Toilet # Voids 3 2 - Exam gen: nad cv: rrr pul: non labored breathing abd: soft, tender to palpation, no guarding or rebound tenderness - Labs CBC & Chem 7: 07/09/24 06:10 07/09/24 06:10 Labs: Abnormal Lab Results - Last 24 Hours (Table) 07/08/24 07/08/24 07/09/24 Range/Units 12:47 19:09 06:09 Hgb (11.4-16.0) gm/dL Hct (34.0-46.0) % MCV (80.0-100.0) fL MCH (25.0-35.0) pg MCHC (31.0-37.0) g/dL RDW (11.5-15.5) % Chloride (98-107) mmol/L Glucose (74-99) mg/dL POC Glucose (mg/dL) 309 H 190 H 117 H (70-110) mg/dL Total Protein (6.3-8.2) g/dL Albumin (3.5-5.0) g/dL 07/09/24 07/09/24 Range/Units 06:10 06:10 Hgb 9.0 L (11.4-16.0) gm/dL Hct 29.8 L (34.0-46.0) % MCV 63.9 L (80.0-100.0) fL MCH 19.4 L (25.0-35.0) pg MCHC 30.3 L (31.0-37.0) g/dL RDW 16.2 H (11.5-15.5) % Chloride 110 H (98-107) mmol/L Glucose 117 H (74-99) mg/dL POC Glucose (mg/dL) (70-110) mg/dL Total Protein 5.7 L (6.3-8.2) g/dL Albumin 3.3 L (3.5-5.0) g/dL Assessment and Plan Assessment: 58 yo f w/ acute cholecystitis -continue abx -or today Time with Patient: Less than 30
[2024-07-09] MEDS: IV FLUID CONTINUATION 500 ML IV ONE (12:14)
[2024-07-09 12:37] LABS: Glucose,Whole Blood 117 mg/dL (70-110)
[2024-07-09] MEDS: DEXAMETHASONE SOD PHOSPHATE 4 MG/ML 1 ML VIAL IVP STA (12:37)
[2024-07-09] MEDS ORDERED: SUCCINYLCHOLINE CHLORIDE 200 MG/10 ML VIAL IV ONE (13:30)
[2024-07-09] MEDS ORDERED: ePHEDrine 50 MG/ML 1 ML VIAL ONE (13:30)
[2024-07-09] MEDS ORDERED: ESMOLOL 100 MG/10 ML VIAL ONE (13:30)
[2024-07-09] MEDS ORDERED: LIDOCAINE 1% INJ 10MG/ML (20 ML MDV) ONE (13:30)
[2024-07-09] MEDS ORDERED: bisacodyL 5 MG TABLET.DR PO PRN (13:30)
[2024-07-09] MEDS ORDERED: hydrALAZINE HCL 20 MG/ML 1 ML VIAL ONE (13:30)
[2024-07-09] MEDS ORDERED: ROCURONIUM 10 MG/ML (5 ML VIAL) IV ONE (13:30)
[2024-07-09] MEDS ORDERED: fentaNYL (PF) 50 MCG/ML 2 ML AMP ONE (13:30)
[2024-07-09] MEDS ORDERED: GLYCOPYRROLATE 0.2 MG/ML 2 ML VIAL ONE (13:30)
[2024-07-09] MEDS ORDERED: NEOSTIGMINE 1 MG/ML 10 ML VIAL ONE (13:30)
[2024-07-09] MEDS ORDERED: MIDAZOLAM 2 MG/2 ML VIAL ONE (13:30)
[2024-07-09] MEDS ORDERED: PROPOFOL 10 MG/ML 20 ML VIAL IV ONE (13:30)
--- NOTE | 2024-07-09 13:33 | P.PN ---
Subjective Progress Note Date: 07/09/24 Hospital course: Patient is a 58-year-old female with a past medical history of hypertension, hyperlipidemia, [id number] diabetes mellitus, history of DVT status post IVC filter, and breast cancer status postchemotherapy and radiation currently in remission. She presented the hospital on 07/06/2024 with a chief complaint of epigastric pain/right flank pain. Upon arrival to our facility, patient underwent evaluation in the emergency department. Vital signs upon arrival show blood pressure 185/96, heart rate 66, respiratory rate 15, temp 97.0 F, and SpO2 100% on room air. EKG completed showing normal sinus rhythm at 61 bpm with no noted T wave or ST abnormality showing no signs of acute ischemia upon personal review and interpretation. Chest x-ray completed negative for acute cardiopulmonary process. Ultrasound right upper quadrant completed showing gallbladder prominently distended with minimal echogenic sludge and layering echogenic subcentimeter gallstones noted however negative findings for acute cholecystitis, no biliary dilation. Labs completed and reviewed. CBC showing microcytic anemia with hemoglobin of 10.6 and MCV of 63.9. Coagulation profile normal findings. D-dimer negative at 0.54. BMP s howing mild high anion gap metabolic acidosis with chloride of 104, bicarb of 20, and anion gap of 13. Blood glucose was elevated at 319. Magnesium was low at 1.6 and liver enzymes elevated with AST of 50, ALT of 44, and alkaline phosphatase of 99. Troponin was negative at less than 0.012. Amylase and lipase normal findings. Patient admitted under our services with consultation to cardiology and general surgery. Troponins trended overnight all negative at less than 0.012 x 3 draws. Echocardiogram revealed preserved EF of 55 to 60%. HIDA scan completed showing findings consistent with acute cholecystitis. Physical exam: Patient seen and fully evaluated at bedside this morning. She was visiting with at bedside. Reports pain has been ongoing and intermittent but mostly controlled at this time. She denies experiencing any nausea, vomiting, chest pain, palpitations, or shortness of breath. Patient is scheduled to undergo laparoscopic cholecystectomy later today with Dr. Trujillo. Patient does report constipation with no bowel movement since arrival to our facility, secondary to patient being scheduled for surgery at 1 PM, will place order for MiraLAX to begin this evening. Vital signs reviewed and stable. General: Nontoxic, no distress and appears stated age. Derm: Skin warm and dry, normal coloration for ethnicity. Head: Atraumatic, normocephalic and symmetric. Eyes: EOM's intact, no lid lag, and anicteric sclera Mouth: no lip lesions, mucus membranes moist Cardiovascular: regular rate and rhythm with normal S1S2, no murmur, positive posterior tibial pulses bilaterally, and cap refill < 2 seconds. Lungs: Respirations even, regular, and unlabored on room air. Lungs CTA bilaterally, no rhonchi, no rales, no wheezing, and no accessory muscle usage. Abdominal: soft, nontender to palpation, no guarding, no appreciable organomegaly Ext: ROM intact. No gross muscle atrophy, no edema, no contractures Neuro: Speech clear, face symmetrical and CN II-XII grossly intact with no noted focal neuro deficits Psych: Alert and oriented to person, place, time, and situation. Appropriate and pleasant affect. Assessment and Plan of Care: Acute cholecystitis Transaminitis, secondary to above -HIDA scan showing findings consistent with acute cholecystitis -General Surgery following, discussed plan of care with general surgery PA patient scheduled to undergo cholecystectomy later this afternoon. -Cardiology evaluated, discussed plan of care with cardiac ICT CUSTOMER SUPPORT OFFICER. Acute coronary event ruled out stating patient with history of cardiomyopathy with previous EF of 40 to 45% and now showing preserved EF. Cardiology clearing patient from their perspective to proceed with cholecystectomy for acute cholecystitis. -Repeat echocardiogram showing preserved EF of 55-60%. -Telemetry monitoring -Continue NPO pending completion of surgery and diet to be advanced as recommended by general surgery team. -Continue IV antibiotics with Rocephin 1 g daily and Flagyl 500 mg every 8 hours. -Continue symptomatic care and pain management with Zofran 4 mg IVP every 8 hours as needed for nausea and vomiting, Tylenol 650 mg every 6 hours as needed for mild pain/fever, [place] 5-325 mg tablets every 4 hours as needed for moderate pain, and morphine 4 mg IVP every 4 hours as needed for severe pain. Microcytic anemia -Hemoglobin currently 9.0. Patient denies having any bleeding or noted bruising. Order placed iron profile. -Order placed for repeat CBC this evening after completion of surgical procedure and again tomorrow morning. Will continue to monitor closely and transfuse if indicated for hemoglobin less than 7 and/or symptomatic anemia. Type II [id number] diabetes mellitus with hyperglycemia -Hold metformin and continue glycemic protocol with NovoLog sliding scale. History of DVT -DVT prophylaxis with Lovenox 40 mg daily. History of breast cancer, currently in remission. -Continue outpatient follow-up with yearly cancer screenings and monthly self breast exams. Data and imaging reviewed: Vital signs reviewed. Blood pressure 122/66, heart rate 53, respiratory rate 17, temp 97.7 F, and SpO2 of 95% on room air Labs completed and reviewed. CBC showing microcytic anemia with hemoglobin of 9.0 and MCV of 63.9. BMP showing mild hyperchloremia with chloride of 110 otherwise normal findings. Blood glucose was 117. Liver profile showing resolution of transaminitis showing low protein of 5.4 with albumin of 3.3. CODE STATUS Full code DVT prophylaxis: Lovenox Discussed with: Patient, RN, and general surgery PA. Anticipated discharge date: Pending clinical course Anticipated discharge place: Home Patient was seen independently by Nurse Pracitioner. This document was prepared using [employer] dictation software. Please allow for errors in special education para professional, while rare they do occur. Mika Gaspar NP rendered care for this patient independently, reviewed the findings and plan as documented in the note above and agree with plan. I did not physically speak with or examine the patient on this date. Objective - Vital Signs Vital signs: Vital Signs Temp 98.2 F 07/09/24 02:00 Pulse 77 07/09/24 02:00 Resp 17 07/09/24 02:00 BP 123/75 07/09/24 02:00 Pulse Ox 97 07/09/24 02:00 FiO2 Intake & Output 07/08/24 07/09/24 07/09/24 18:59 06:59 18:59 Intake Total 236 Balance 236 Intake: Oral 236 Other: Voiding Method Toilet Toilet # Voids 3 2 - Labs CBC & Chem 7: 07/09/24 06:10 07/09/24 06:10 Labs: Abnormal Lab Results - Last 24 Hours (Table) 07/08/24 07/08/24 07/08/24 Range/Units 08:29 12:47 19:09 Hgb 10.0 L (11.4-16.0) gm/dL Hct 31.9 L (34.0-46.0) % MCV 64.4 L (80.0-100.0) fL MCH 20.2 L (25.0-35.0) pg MCHC (31.0-37.0) g/dL RDW 16.3 H (11.5-15.5) % Chloride (98-107) mmol/L Glucose (74-99) mg/dL POC Glucose (mg/dL) 309 H 190 H (70-110) mg/dL Total Protein (6.3-8.2) g/dL Albumin (3.5-5.0) g/dL 07/09/24 07/09/24 07/09/24 Range/Units 06:09 06:10 06:10 Hgb 9.0 L (11.4-16.0) gm/dL Hct 29.8 L (34.0-46.0) % MCV 63.9 L (80.0-100.0) fL MCH 19.4 L (25.0-35.0) pg MCHC 30.3 L (31.0-37.0) g/dL RDW 16.2 H (11.5-15.5) % Chloride 110 H (98-107) mmol/L Glucose 117 H (74-99) mg/dL POC Glucose (mg/dL) 117 H (70-110) mg/dL Total Protein 5.7 L (6.3-8.2) g/dL Albumin 3.3 L (3.5-5.0) g/dL
[2024-07-09] MEDS: BUPIVACAINE (PF) 0.25% 30 ML VIAL SQ ONE (13:49)
[2024-07-09] MEDS: LACTATED RINGERS 1,000 ML IV ONE (14:38)
[2024-07-09 15:30] LABS: Glucose,Whole Blood 232 mg/dL (70-110)
[2024-07-09] MEDS: HYDROmorphone 0.5 MG/0.5 ML SYRINGE IVP PRN (15:42)
[2024-07-09 17:20] LABS: Glucose,Whole Blood 241 mg/dL (70-110)
[2024-07-09] MEDS ORDERED: HYDROcodone/APAP 7.5-325MG 1 EACH TAB PO PRN (17:32)
[2024-07-09] MEDS ORDERED: HYDROmorphone 0.5 MG/0.5 ML SYRINGE IVP STA (17:38)
[2024-07-09] MEDS: HYDROmorphone 1 MG/ML 1 ML SYRINGE IVP PRN (17:40)
[2024-07-09 18:29] LABS: % Iron Saturation 35.86 (12.00-45.00)
[2024-07-09 19:05] LABS: Anisocytosis Slight; Basophils % (A) 0 %; Eosinophils % (A) 0 %; HCT 35.3 % (34.0-46.0); HGB 10.3 gm/dL (11.4-16.0); Hypochromasia Marked; Lymphocytes # (A) 0.8 k/uL (1.0-4.8); Lymphocytes % (A) 8 %; MCH 19.5 pg (25.0-35.0); MCHC 29.1 g/dL (31.0-37.0); Mean Platelet Volume 7.8; Microcytosis Marked; Monocytes # (A) 0.1 k/uL (0-1.0); Monocytes % (A) 1 %; Neutrophils # (A) 9.6 k/uL (1.3-7.7); Neutrophils % (A) 90 %; Platelet Count 178 k/uL (150-450); Poikilocytosis Slight; RBC 5.27 m/uL (3.80-5.40); RDW 16.8 % (11.5-15.5); WBC 10.7 k/uL (3.8-10.6)
[2024-07-09 19:50] LABS: Glucose,Whole Blood 236 mg/dL (70-110)
[2024-07-09] MEDS: ONDANSETRON 4 MG/2 ML VIAL IVP PRN (20:29)
[2024-07-09] MEDS: SIMETHICONE 40 MG/0.6 ML DROPS 2,000 MG/30 ML BOTTLE PO SCH (21:47)
[2024-07-10 05:30] LABS: Glucose,Whole Blood 160 mg/dL (70-110)
[2024-07-10 07:25] VITALS: RESP 16; TEMP 98.2
[2024-07-10 10:02] LABS: HCT 31.3 % (37.2-46.3); HGB 9.5 g/dL (12.0-15.0); MCH 19.7 pg (27.0-32.0); MCHC 30.4 g/dL (32.0-37.0); MCV 64.8 FL (80.0-97.0); NRBC Per 100 WBC 0.02 X 10*3/uL (0.00-0.01); Platelet Count 215 X 10*3/uL (140-440); RBC 4.83 X 10*6/uL (4.10-5.20); RDW 16.2 % (11.5-14.5); WBC 12.88 X 10*3/uL (4.50-10.00)
[2024-07-10 10:18] LABS: ALT 45 U/L (8-44); AST 58 U/L (13-35); Albumin 3.8 g/dL (3.8-4.9); Albumin/Globulin Ratio 1.52 Ratio (1.60-3.17); Alkaline Phosphatase 88 U/L (41-126); BUN/Creat Ratio 14.57 Ratio (12.00-20.00); Blood Urea Nitrogen 10.2 mg/dL (9.0-27.0); Calcium 8.9 mg/dL (8.7-10.3); Carbon Dioxide 19.8 mmol/L (21.6-31.8); Chloride 108 mmol/L (96-109); Globulin 2.5 g/dL (1.6-3.3); Glucose 158 mg/dL (70-110); Magnesium 1.5 mg/dL (1.5-2.4); Potassium 4.5 mmol/L (3.5-5.5); Sodium 141 mmol/L (135-145); Total Bilirubin 0.5 mg/dL (0.3-1.2); Total Protein 6.3 g/dL (6.2-8.2)
--- NOTE | 2024-07-10 11:11 | P.PN ---
Subjective Pt seen and evaluated at bedside. Patient continues to have abdominal pain, but denies nausea, vomiting, fevers, chills, shortness of breathing or chest pain. Objective - Vital Signs Vital signs: Vital Signs Temp 98.2 F 07/10/24 07:24 Pulse 69 07/10/24 07:24 Resp 16 07/10/24 07:24 BP 147/80 07/10/24 07:24 Pulse Ox 95 07/10/24 07:24 FiO2 Intake & Output 07/09/24 07/10/24 07/10/24 18:59 06:59 18:59 Intake Total 950 Output Total 45 Balance 905 Intake: IV 950 Output: Estimated Blood Loss 45 Other: Voiding Method Toilet Toilet # Voids 2 - Exam gen: nad cv: rrr pul: non labored breathing abd: soft, tender to palpation, no guarding or rebound tenderness - Labs CBC & Chem 7: 07/10/24 04:15 07/10/24 04:15 Labs: Abnormal Lab Results - Last 24 Hours (Table) 07/09/24 07/09/24 07/09/24 Range/Units 06:10 12:35 15:28 WBC (3.8-10.6) k/uL Hgb (11.4-16.0) gm/dL Hct (37.2-46.3) % MCV (80.0-100.0) fL MCH (25.0-35.0) pg MCHC (31.0-37.0) g/dL RDW (11.5-15.5) % Neutrophils # (1.3-7.7) k/uL Lymphocytes # (1.0-4.8) k/uL NRBC/100 WBC Diff (0.00-0.01) X 10*3/uL Carbon Dioxide (21.6-31.8) mmol/L Anion Gap (4.00-12.00) mmol/L Glucose (70-110) mg/dL POC Glucose (mg/dL) 117 H 232 H (70-110) mg/dL Transferrin 179.0 L (204.0-354.0) mg/dL AST (13-35) U/L ALT (8-44) U/L Albumin/Globulin Ratio (1.60-3.17) Ratio 07/09/24 07/09/24 07/09/24 Range/Units 17:16 18:28 19:48 WBC 10.7 H (3.8-10.6) k/uL Hgb 10.3 L (11.4-16.0) gm/dL Hct (37.2-46.3) % MCV 67.0 L (80.0-100.0) fL MCH 19.5 L (25.0-35.0) pg MCHC 29.1 L (31.0-37.0) g/dL RDW 16.8 H (11.5-15.5) % Neutrophils # 9.6 H (1.3-7.7) k/uL Lymphocytes # 0.8 L (1.0-4.8) k/uL NRBC/100 WBC Diff (0.00-0.01) X 10*3/uL Carbon Dioxide (21.6-31.8) mmol/L Anion Gap (4.00-12.00) mmol/L Glucose (70-110) mg/dL POC Glucose (mg/dL) 241 H 236 H (70-110) mg/dL Transferrin (204.0-354.0) mg/dL AST (13-35) U/L ALT (8-44) U/L Albumin/Globulin Ratio (1.60-3.17) Ratio 07/10/24 07/10/24 07/10/24 Range/Units 04:15 04:15 05:29 WBC 12.88 H (3.8-10.6) k/uL Hgb 9.5 L (11.4-16.0) gm/dL Hct 31.3 L (37.2-46.3) % MCV 64.8 L (80.0-100.0) fL MCH 19.7 L (25.0-35.0) pg MCHC 30.4 L (31.0-37.0) g/dL RDW 16.2 H (11.5-15.5) % Neutrophils # (1.3-7.7) k/uL Lymphocytes # (1.0-4.8) k/uL NRBC/100 WBC Diff 0.02 H (0.00-0.01) X 10*3/uL Carbon Dioxide 19.8 L (21.6-31.8) mmol/L Anion Gap 13.20 H (4.00-12.00) mmol/L Glucose 158 H (70-110) mg/dL POC Glucose (mg/dL) 160 H (70-110) mg/dL Transferrin (204.0-354.0) mg/dL AST 58 H (13-35) U/L ALT 45 H (8-44) U/L Albumin/Globulin Ratio 1.52 L (1.60-3.17) Ratio Assessment and Plan Assessment: 58 yo f w/ acute cholecystitis s/p robo cholecystectomy -advance diet to lowe fat/soft -pain management -ok to discharge from surgical standpoint Time with Patient: Less than 30
[2024-07-10 12:15] LABS: Glucose,Whole Blood 143 mg/dL (70-110)
[2024-07-10 14:21] VITALS: BP 158/89; PULSE 83
--- NOTE | 2024-07-10 15:13 | P.DS ---
Providers Date of admission: 07/07/24 01:10 Expected date of discharge: 07/10/24 Attending physician: Omar Del Toro MD Consults: 07/07/24 01:07 Consult Physician Routine Consulting Provider: Jesus Bray Consult Reason/Comments: chest pain Do you want consulting provider notified?: Yes 07/07/24 02:54 Consult Physician Routine Consulting Provider: Landon Ortega Consult Reason/Comments: epigastric pain Do you want consulting provider notified?: Yes Primary care physician: [facility] Course: Discharge Diagnosis: Acute cholecystitis status post laparoscopic cholecystectomy on 07/09/2024. Transaminitis, secondary to above. Improved. Total bili 0.5, AST 58, ALT 45 and alkaline phosphatase 88 at time of discharge. Microcytic anemia. Postoperative hemoglobin stable at 9.5. Type II iiq-mjwkqiu-vcoizlkbe diabetes mellitus with hyperglycemia. Blood glucose 143 at time of discharge. Patient to resume metformin 500 mg twice daily. History of DVT. Recommend compression stockings and encouraged ambulation. History of breast cancer, currently in remission.. Continue outpatient follow-up with yearly cancer screenings and monthly self breast exams. Hospital course: Patient is a 58-year-old female with a past medical history of hypertension, hyperlipidemia, zvs-uhdznxi-kjetgkwrh diabetes mellitus, history of DVT status post IVC filter, and breast cancer status postchemotherapy and radiation currently in remission. She presented the hospital on 07/06/2024 with a chief complaint of epigastric pain/right flank pain. Upon arrival to our facility, patient underwent evaluation in the emergency department. Vital signs upon arrival show blood pressure 185/96, heart rate 66, respiratory rate 15, temp 97.0 F, and SpO2 100% on room air. EKG completed showing normal sinus rhythm at 61 bpm with no noted T wave or ST abnormality showing no signs of acute ischemia upon personal review and interpretation. Chest x-ray completed negative for acute cardiopulmonary process. Ultrasound right upper quadrant completed showing gallbladder prominently distended with minimal echogenic sludge and layering echogenic subcentimeter gallstones noted however negative findings for acute cholecystitis, no biliary dilation. Labs completed and reviewed. CBC showing microcytic anemia with hemoglobin of 10.6 and MCV of 63.9. Coagulation profile normal findings. D-dimer negative at 0.54. BMP showing mild high anion gap metabolic acidosis with chloride of 104, bicarb of 20, and anion gap of 13. Blood glucose was elevated at 319. Magnesium was low at 1.6 and liver enzymes elevated with AST of 50, ALT of 44, and alkaline phosphatase of 99. Troponin was negative at less than 0.012. Amylase and lipase normal findings. Patient admitted under our services with consultation to cardiology and general surgery. Troponins trended overnight all negative at less than 0.012 x 3 draws. Echocardiogram revealed preserved EF of 55 to 60%. HIDA scan completed showing findings consistent with acute cholecystitis. Underwent laparoscopic cholecystectomy by Dr. Trujillo on 07/09/2024. Diet was slowly advanced and patient reports manage postoperative pain. Patient tolerating low-fat diet. She is medically optimized and cleared from general surgeons perspective for discharge home recommending discharge home on an additional 4-day course of Flagyl and ciprofloxacin. Patient to follow-up outpatient with PCP in 1 to 2 days, lace roller in 1 week, and general surgeon in 1 week. Physical exam: Vital signs reviewed and stable. General: Nontoxic, no distress and appears stated age. Derm: Skin warm and dry, normal coloration for ethnicity. Head: Atraumatic, normocephalic and symmetric. Eyes: EOM's intact, no lid lag, and anicteric sclera Mouth: no lip lesions, mucus membranes moist Cardiovascular: regular rate and rhythm with normal S1S2, no murmur, positive posterior tibial pulses bilaterally, and cap refill < 2 seconds. Lungs: Respirations even, regular, and unlabored on room air. Lungs CTA bilaterally, no rhonchi, no rales, no wheezing, and no accessory muscle usage. Abdominal: soft, nontender to palpation, no guarding, no appreciable organo megaly. Mild tenderness to palpation only surrounding laparoscopic incision sites. Ext: ROM intact. No gross muscle atrophy, no edema, no contractures Neuro: Speech clear, face symmetrical and CN II-XII grossly intact with no noted focal neuro deficits Psych: Alert and oriented to person, place, time, and situation. Appropriate and pleasant affect. A total of 33 minutes of time were spent preparing this complex discharge summary. Pt was discharged on 07/10/2024 at 3:11 PM. Patient was seen independently by Nurse Practitioner. This document was prepared using [employer] dictation software. Please allow for errors in [employer] combination teacher while rare they do occur. Mika Gaspar NP rendered care for this patient independently, reviewed the findings and plan as documented in the note above. I did not physically speak with or examine the patient on this date. Patient Condition at Discharge: Stable Plan - Discharge Summary Discharge Rx Participant: No New Discharge Prescriptions: New RX: Acetaminophen-Codeine 300-30mg [Tylenol w/codeine #3] 2 each PO Q8HR PRN #18 tab PRN Reason: Mild Pain (Scale 1 To 3) polyethylene glycoL 3350 [Miralax] 17 gm PO DAILY 30 Days #30 packet RX: Pantoprazole [Protonix] 40 mg PO AC-BRKFST 30 Days #30 tab Ciprofloxacin HCl [Cipro] 500 mg PO Q12HR 4 Days #8 tab RX: bisacodyL [Dulcolax] 10 mg PO DAILY PRN #10 tab PRN Reason: Constipation metroNIDAZOLE [Flagyl] 500 mg PO QID 4 Days #16 tab Continue RX: allopurinoL [Zyloprim] 300 mg PO DAILY RX: Atorvastatin [Lipitor] 10 mg PO DAILY RX: metFORMIN HCL ER [Glucophage XR] 500 mg PO BID RX: hydrOXYzine HCL 25 mg PO HS RX: Cholecalciferol [Vitamin D3 (125 Mcg = 5000 Iu)] 125 mcg PO DAILY RX: Anastrozole [Arimidex] 1 mg PO DAILY RX: Biotin [Humq-Chbq-Ifueb] 10,000 mcg PO DAILY Discharge Medication List RX: Atorvastatin [Lipitor] 10 mg PO DAILY 08/03/20 [History] RX: allopurinoL [Zyloprim] 300 mg PO DAILY 08/03/20 [History] RX: metFORMIN HCL ER [Glucophage XR] 500 mg PO BID 12/20/20 [History] RX: Anastrozole [Arimidex] 1 mg PO DAILY 03/16/24 [History] RX: hydrOXYzine HCL 25 mg PO HS 03/16/24 [History] RX: Biotin [Bxjj-Nmol-Tiigw] 10,000 mcg PO DAILY 07/07/24 [History] RX: Cholecalciferol [Vitamin D3 (125 Mcg = 5000 Iu)] 125 mcg PO DAILY 07/07/24 [History] Ciprofloxacin HCl [Cipro] 500 mg PO Q12HR 4 Days #8 tab 07/10/24 [Rx] RX: Acetaminophen-Codeine 300-30mg [Tylenol w/codeine #3] 2 each PO Q8HR PRN #18 tab 07/10/24 [Rx] RX: Pantoprazole [Protonix] 40 mg PO AC-BRKFST 30 Days #30 tab 07/10/24 [Rx] RX: bisacodyL [Dulcolax] 10 mg PO DAILY PRN #10 tab 07/10/24 [Rx] metroNIDAZOLE [Flagyl] 500 mg PO QID 4 Days #16 tab 07/10/24 [Rx] polyethylene glycoL 3350 [Miralax] 17 gm PO DAILY 30 Days #30 packet 07/10/24 [Rx] Follow up Appointment(s)/Referral(s): Thom Monroy MD [Primary Care Provider] - 1-2 days Santiago Mijares DO [STAFF PHYSICIAN] - 1 Week Michi Trujillo DO [Doctor of Osteopathic Medicine] - 1 Week Patient Instructions/Handouts: Cholecystitis (GEN), Laparoscopic Cholecystectomy (DC) Activity/Diet/Wound Care/Special Instructions: Activity: As tolerated. Encourage ambulation, no lifting greater than 5 pounds until cleared by general surgeon, Dr. Trujillo at follow-up visit. Diet: Heart healthy and low-fat diet Special Instructions: Take all of your medications as directed and remember to keep all of your doctor's appointments and follow-up as needed. Remember to drink plenty of water and take MiraLAX daily to prevent constipation. Thank you for allowing us to participate in your care, it was truly a pleasure having you for our patient!!! Discharge Disposition: HOME SELF-CARE
--- NOTE | 2024-07-11 13:21 | P.OP ---
Date of Procedure: 07/09/24 Preoperative Diagnosis: Acute cholecystitis Postoperative Diagnosis: Acute cholecystitis Procedure(s) Performed: Robotic cholecystectomy Anesthesia: MERVATA Surgeon: Michi Trujillo Estimated Blood Loss (ml): 80 Pathology: other (Gallbladder) Condition: stable (Gallbladder) Disposition: PACU Indications for Procedure: Acute cholecystitis Operative Findings: Very edematous large gallbladder with gallbladder wall thickening and pericholecystic fluid Description of Procedure: The patient brought to the operating room where she was cleaned and draped in sterile fashion a timeout was performed and everyone agreed with information c ited next #15 blade was then used to make an incision in the left upper quadrant and a 5 mm Visiport was then used to gain access to the abdomen once the abdomen was then insufflated with 3 more working 8 mm ports were placed in the mid abdomen and right upper quadrant and the 5 mm Visiport was then exchanged for an 8. The robot was then docked the gallbladder was immediately visualized it appeared to be very thickened and edematous verifying acute cholecystitis the gallbladder was then grasped and retracted cephalad and the infundibulum level laterally I then started my dissection from lateral to medial with hot scissors as they did not have my usual hook cautery I carefully dissected out the cystic duct and cystic artery creating my critical view of safety. Both structures were doubly clipped distally and 1 proximally ligated using hot scissors. The gallbladder was then taken off of the fossa using electrocautery and placed in an Endo Catch bag there was some difficulty removing the gallbladder out of the patient's abdomen as the gallbladder was very large inflamed with 2 large stones. So I had to make a larger incision the left upper quadrant and dilated the muscle further to remove the gallbladder out of the abdomen intact. A hemostatic timeout was performed and no further bleeding was seen. I then closed the left lower quadrant incision within 0 Vicryl suture and in a rapid fashion x 2 all instruments were removed out of the patient's abdomen under direct visualization and the surgical sites were closed using 4-0 Vicryl suture in an interrupted fashion. The patient tolerated the procedure well and was then transported to PACU in stable condition
--- NOTE | 2024-07-15 10:31 | CDI ---
Documentation Clarification Form Date: 07/15/2024 10:21:29 AM From: Hortencia Root Phone: Admit Date: 07/07/2024 01:10:00 AM Patient Name: Marita Cantu Visit Number: [id number] Discharge Date: 07/10/2024 04:20:00 PM ATTENTION: The Clinical Documentation Specialists (CDI) and [facility] [facility] [facility] Coding Staff appreciate your assistance in clarifying documentation. Please respond to the clarification below the line at the bottom and electronically sign. The CDI & [employer] [facility] [employer] Coding staff will review the response and follow-up if needed. Please note: Queries are made part of the Legal Health Record. If you have any questions, please contact the author of this message via ITS. Doctor/Provider: Michi Trujillo The final diagnosis of the pathology report states chronic cholecystitis with cholelithiasis. Coding guidelines do not allow coding professionals to code based on pathology results; therefore, clarification is requested. History/risk factors: 58yo F, cholecystitis, GERD, transaminitis, microcytic anemia, NIDDMII w hyperglycemia, Hx DVT, Hx breast Cx Clinical Indicators: Specimen is labeled "Marita Cantu, and gallbladder" and consists of an identifiable 12.4 cm in length by 3.5 cm to 4.6 cm in diameter gallbladder with a ocasio, smooth, serosal surface and a green to ocasio irregular adventitial surface with no defects. Incising reveals a patent lumen containing bile and irregular blackcalculimeasuring up to 0.6 cm in greatest dimension. The mucosa is green to ocasio, smooth and unremarkable. The wall measures 0.3 cm in thickness. Thecysticduct appears patent. The margin is inked. Treatment: Roboticcholecystectomy Please clarify which diagnosis best matches the treatment: [x ] Acute cholecystitis with cholelithiasis [ ] Chronic cholecystitis with cholelithiasis [ ] Acute on Chronic cholecystitis with cholelithiasis [ ] Other (please specify) [ ] Unable to determine (Template Last Revised: June 2020) MTDD
== END 2024-07-10 16:20 | disposition home or self-care (01) ==
LOC: EC 21:15 → 6NMEDSUR 07-07 01:09 → OBSVTOIN 07-07 01:10 → INTOOBSV 07-07 01:10 → 6NMEDSUR 07-07 01:33
PROVIDERS: ADMIT Internal Medicine; ATTEND Internal Medicine
DX: K80.12 Calculus of gallbladder with acute and chronic cholecystitis without obstruction (principal); E78.5 Hyperlipidemia, unspecified; I10 Essential (primary) hypertension; I42.9 Cardiomyopathy, unspecified; E11.9 Type 2 diabetes mellitus without complications; D50.9 Iron deficiency anemia, unspecified; R74.01 Elevation of levels of liver transaminase levels; E87.20 Acidosis, unspecified; K21.9 Gastro-esophageal reflux disease without esophagitis; Z85.3 Personal history of malignant neoplasm of breast; Z86.718 Personal history of other venous thrombosis and embolism; Z87.891 Personal history of nicotine dependence; Z92.21 Personal history of antineoplastic chemotherapy; Z92.3 Personal history of irradiation; Z98.84 Bariatric surgery status; Z79.01 Long term (current) use of anticoagulants; Z79.84 Long term (current) use of oral hypoglycemic drugs; Z79.899 Other long term (current) drug therapy; Z88.0 Allergy status to penicillin
CPT/HCPCS: 47562; S2900; 36415; 71046; 76705; 78226; 80053; 80061; 81003; 82150; 83036; 83540; 83550; 83605; 83690; 83735; 84439; 84443; 84484; 85025; 85027; 85379; 85610; 85730; 88304; 93005; 93306; 96365; 96366; 96372; 96374; 96375; 96376; 99285

== ENCOUNTER 2024-07-28 20:10 | Emergency (ER) | payer BC ==
[2024-07-28 21:04] LABS: Basophils % (A) 1.4 %; Eosinophils # (A) 0.27 10*3/uL (0.04-0.35); Eosinophils % (A) 3.8 %; HCT 32.8 % (37.2-46.3); HGB 10.7 g/dL (12.0-15.0); Lymphocytes # (A) 2.54 10*3/uL (0.90-5.00); Lymphocytes % (A) 35.3 %; MCH 20.7 pg (27.0-32.0); MCHC 32.6 g/dL (32.0-37.0); MCV 63.4 fL (80.0-97.0); Monocytes # (A) 0.87 10*3/uL (0.20-1.00); Monocytes % (A) 12.1 %; Neutrophils % (A) 47.3 %; Platelet Count 454 10*3/uL (140-440); RBC 5.17 10*6/uL (4.10-5.20); RDW 17.2 % (11.5-14.5); WBC 7.19 10*3/uL (4.50-10.00)
[2024-07-28 21:16] LABS: ALT 58 U/L (4-34); AST 63 U/L (14-36); African American GFR (CKD) >90 (>60 ml/min/1.73 sqM); Albumin 4.7 g/dL (3.5-5.0); Alkaline Phosphatase 115 U/L (38-126); Anion Gap 12 mmol/L; Blood Urea Nitrogen 8 mg/dL (7-17); Calcium 9.6 mg/dL (8.4-10.2); Carbon Dioxide 23 mmol/L (22-30); Chloride 103 mmol/L (98-107); Glucose 238 mg/dL (74-99); Lipase 65 U/L (23-300); Non-African American GFR(CKD) >90 (>60 ml/min/1.73 sqM); Potassium 4.1 mmol/L (3.5-5.1); Sodium 138 mmol/L (137-145); Total Bilirubin 0.8 mg/dL (0.2-1.3); Total Protein 7.7 g/dL (6.3-8.2)
[2024-07-28] MEDS: LACTATED RINGERS 1,000 ML IV ONE (21:35)
[2024-07-28 21:56] LABS: Appearance,Urine Clear (Clear); Bilirubin,Urine Negative (Negative); Blood,Urine Negative (Negative); Color,Urine Colorless; Glucose,Urine (UA) Negative (Negative); Ketones,Urine Negative (Negative); Leukocyte Esterase,Urine Large (Negative); Mucus,Urine Rare /hpf; Nitrite,Urine Negative (Negative); PH, Urine 5.5 (5.0-8.0); Protein,Urine Negative (Negative); RBC,Urine 4 /hpf (0-5); Specific Gravity,Urine 1.017 (1.001-1.035); Squamous Epithelial Cell,Urine 1 /hpf (0-4); Urobilinogen,Urine <2.0 mg/dL (<2.0); WBC,Urine 51 /hpf (0-5)
[2024-07-28 21:59] LABS: Large Platelets Present; Ovalocytes Present; Polychromasia Present; Target Cells Present
--- NOTE | 2024-07-28 22:06 | CT ---
EXAMINATION TYPE: CT abdomen pelvis w con DATE OF EXAM: 07/28/2024 9:36 PM COMPARISON: PET 11/16/2020 CLINICAL INDICATION: Female, 59 years old with history of abdominal pain, post op gallbladder; Pt pre sents to ED for c/o RLQ pain starting yesterday. Pt states recent gallblader surgery. TECHNIQUE: Axial CT abdomen pelvis w con;Sagittal and coronal reformats were created on a separate w orkstation. Contrast used:100 mL of Isovue 300 with IV Contrast, (none if empty) Oral contrast used: without Oral Contrast (none if empty) CT DLP: 850.8 mGycm, Automated exposure control for dose reduction was used. FINDINGS: LOWER CHEST: Partially visualized bilateral breast implants appear intact and the visualized portions . ABDOMEN LIVER: Unremarkable GALLBLADDER AND BILE DUCTS: Reported postcholecystectomy changes. Multiple foci of gas present high d ensity lesion also present in the gallbladder fossa possibly surgical clips. PANCREAS: Unremarkable. SPLEEN: Multiple calcified granulomas in the spleen spleen is enlarged measuring up to 15.2 cm. ADRENAL GLANDS: Unremarkable. KIDNEYS AND URETERS: No evidence of hydronephrosis or obstructing renal calculus. The ureters are unr emarkable. Nonobstructing left 3 mm calculus. PELVIS BLADDER: No evidence for wall thickening or mass given limitations of exam. REPRODUCTIVE: Right tubal ligation clip present. ABDOMEN & PELVIS STOMACH AND BOWEL: Post surgical changes the gastric lumen. No evidence for bowel obstruction. The ap pendix is not definitively visualized. PERITONEUM/RETROPERITONEUM: No evidence of pneumoperitoneum or free fluid. VASCULATURE: No evidence of aortic aneurysm. IVC filter in place. MUSCULOSKELETAL: No acute osseous abnormalities LYMPH NODES: No gross evidence for lymphadenopathy. SOFT TISSUE/ABDOMINAL WALL: Post surgical changes anterior abdominal wall. Surgical changes the right lower abdominal wall with anchors present. Mild diastases of the right lower quadrant abdominal wall with surgical clips are. IMPRESSION: 1. Postsurgical changes to the gallbladder fossa with multiple foci's of gas in at least one calcifi cation present. Unclear if there is been subtotal cholecystectomy versus normal postsurgical change v ersus other. No additional right-sided acute process. Correlate for signs and symptoms of infection. 2. Appendix is not definitively visualized. 3. IVC filter in appropriate position. 4. Post surgical changes to the anterior abdominal wall near midline in the right lower quadrant wit h surgical anchors in place and surgical clips present. No persistent narrow neck hernia present. Mil d diastases of the right lower quadrant abdominal wall with surgical anchors are present. 5. Scattered colonic diverticula. 6. Nonobstructing left 3 mm calculus. 7. Nonspecific splenomegaly. [facility], , 07/28/2024 10:04 PM
[2024-07-28] MEDS: MORPHINE SULFATE 4 MG/ML SYRINGE IVP STA (22:13)
--- NOTE | 2024-07-28 23:59 | ED ---
Abdominal Pain HPI - General Chief Complaint: Abdominal Pain Stated Complaint: stomach pain Time Seen by Provider: 07/28/24 20:20 Source: patient Mode of arrival: ambulatory Limitations: no limitations - History of Present Illness Initial Comments: 59-year-old female presents emergency department with anterior abdominal pain. Pain started yesterday. She is postop from a cholecystectomy which was completed on July [address] Trujillo. States that her pain after surgery was starting to improve. She denies any injuries or straining. She does not have anything at home to take for the pain. She contacted her surgeon who told her if the pain continued to be evaluated in the emergency department. She feels like she has a tearing sensation in her anterior abdominal wall. Pain is worse with standing and better with lying down. She denies any associated nausea or vomiting. No changes in her bowel or bladder habits. No fevers. No other alleviating, precipitating or modifying factors - Related Data Home Medications Medication Instructions Recorded Confirmed Atorvastatin [Lipitor] 10 mg PO DAILY 08/03/20 07/07/24 allopurinoL [Zyloprim] 300 mg PO DAILY 08/03/20 07/07/24 metFORMIN HCL ER [Glucophage XR] 500 mg PO BID 12/20/20 07/07/24 Anastrozole [Arimidex] 1 mg PO DAILY 03/16/24 07/07/24 hydrOXYzine HCL 25 mg PO HS 03/16/24 07/07/24 Biotin [Xmlx-Fvks-Jhjoi] 10,000 mcg PO DAILY 07/07/24 07/07/24 Cholecalciferol [Vitamin D3 (125 125 mcg PO DAILY 07/07/24 07/07/24 Mcg = 5000 Iu)] Previous Rx's Medication Instructions Recorded Acetaminophen-Codeine 300-30mg 2 each PO Q8HR PRN #18 tab 07/10/24 [Tylenol w/codeine #3] Ciprofloxacin HCl [Cipro] 500 mg PO Q12HR 4 Days #8 tab 07/10/24 Pantoprazole [Protonix] 40 mg PO AC-BRKFST 30 Days #30 tab 07/10/24 bisacodyL [Dulcolax] 10 mg PO DAILY PRN #10 tab 07/10/24 metroNIDAZOLE [Flagyl] 500 mg PO QID 4 Days #16 tab 07/10/24 polyethylene glycoL 3350 [Miralax] 17 gm PO DAILY 30 Days #30 packet 07/10/24 Acetaminophen-Codeine 300-30mg 1 tab PO Q4H PRN 3 Days #18 tablet 07/28/24 [Tylenol w/codeine #3] Allergies Allergy/AdvReac Type Severity Reaction Status Date / Time Penicillins Allergy Severe Rash/Hives Verified 07/28/24 20:19 Review of Systems ROS Statement: Those systems with pertinent positive or pertinent negative responses have been documented in the HPI. ROS Other: All systems not noted in ROS Statement are negative. Past Medical History Past Medical History: Cancer, Deep Vein Thrombosis (DVT), Hyperlipidemia, Hypertension, Osteoarthritis (OA) Additional Past Medical History / Comment(s): right breast cancer- currently on chemo last tx 12/15/20 History of Any Multi-Drug Resistant Organisms: None Reported Past Surgical History: Bariatric Surgery, Breast Surgery, Cholecystectomy Additional Past Surgical History / Comment(s): Sinus surgery, breast implants, Gastric Bypass 2003, right breast lumpectomy September 2020 Past Anesthesia/Blood Transfusion Reactions: No Reported Reaction Past Psychological History: No Psychological Hx Reported Smoking Status: Former smoker Past Alcohol Use History: None Reported Past Drug Use History: None Reported - Past Family History Mother Family Medical History: No Reported History General Exam Limitations: no limitations General appearance: alert, in no apparent distress Head exam: Present: atraumatic, normocephalic, normal inspection Eye exam: Present: normal appearance, PERRL, EOMI. Absent: scleral icterus, conjunctival injection, periorbital swelling ENT exam: Present: normal exam, mucous membranes moist Neck exam: Present: normal inspection. Absent: tenderness, meningismus, lymphadenopathy Respiratory exam: Present: normal lung sounds bilaterally. Absent: respiratory distress, wheezes, rales, rhonchi, stridor Cardiovascular Exam: Present: regular rate, normal rhythm, normal heart sounds. Absent: systolic murmur, diastolic murmur, rubs, gallop, clicks GI/Abdominal exam: Present: soft, normal bowel sounds. Absent: distended, t enderness, guarding, rebound, rigid Extremities exam: Present: normal inspection, full ROM, normal capillary refill. Absent: tenderness, pedal edema, joint swelling, calf tenderness Back exam: Present: normal inspection Neurological exam: Present: alert, oriented X3, CN II-XII intact Psychiatric exam: Present: normal affect, normal mood Skin exam: Present: warm, dry, intact, normal color. Absent: rash Course Vital Signs 07/28/24 07/29/24 20:17 00:08 Temperature 98.1 F 98.0 F Pulse Rate 74 65 Respiratory 18 17 Rate Blood Pressure 131/76 153/86 O2 Sat by Pulse 99 99 Oximetry Medical Decision Making - Medical Decision Making Was pt. sent in by a medical professional or institution (, PA, DUCK OPERATOR, urgent care, hospital, or [place] health care facility...) When possible be specific @ -No Did you speak to anyone other than the patient for history (EMS, parent, family, police, friend...)? What history was obtained from this source @ -No Did you review nursing and triage notes (agree or disagree)? Why? @ -I reviewed and agree with nursing and triage notes Were old charts reviewed (outside hosp., previous admission, EMS record, old EKG, old radiological studies, urgent care reports/EKG's, [place] health care facility records)? Report findings @ -I reviewed the procedure note from Dr. Trujillo from July 11 when patient had a cholecystectomy Differential Diagnosis (chest pain, altered mental status, abdominal pain women, abdominal pain men, vaginal bleeding, weakness, fever, dyspnea, syncope, headache, dizziness, GI bleed, back pain, seizure, CVA, palpatations, mental health, musculoskeletal)? @ -Differential Abdominal Pain Women: Appendicitis, Cholecystitis, diverticulosis, ischemic bowel, pancreatitis, hepatitis, UTI, gastroenteritis, AAA, incarcerated hernia, bowel obstruction, constipation, inflammatory bowel, hepatitis, peptic ulcer disease, splenic infarction, perforated viscus, vulvitis, ovarian torsion, PID, kidney stone, placenta abruption, this is not meant to be an all-inclusive list EKG interpreted by me (3pts min.). @ -Not done X-rays interpreted by me (1pt min.). @ -None done CT interpreted by me (1pt min.). @ -Yes which demonstrates postop changes U/S interpreted by me (1pt. min.). @ -None done What testing was considered but not performed or refused? (CT, X-rays, U/S, labs)? Why? @ -None What meds were considered but not given or refused? Why? @ -None Did you discuss the management of the patient with other professionals (professionals i.e. DrMagaly, PA, DUCK OPERATOR, lab, RT, psych nurse, manager social work, manager gallery, teacher, sheriff officer, case operator)? Give summary @ -Spoke with Dr. Trujillo who states that the CT findings are all common postop findings and if pain is controlled patient may be discharged home Was smoking cessation discussed for >3mins.? @ -No Was critical care preformed (if so, how long)? @ -No Were there social determinants of health that impacted care today? How? (Homelessness, low income, unemployed, alcoholism, drug addiction, transportation, low edu. Level, literacy, decrease access to med. care, [facility], rehab)? @ -No Was there de-escalation of care discussed even if they declined (Discuss DNR or withdrawal of care, Hospice)? DNR status @ -No What co-morbidities impacted this encounter? (DM, HTN, Smoking, COPD, CAD, Cancer, CVA, ARF, Chemo, Hep., AIDS, mental health diagnosis, sleep apnea, morbid obesity)? @ -None Was patient admitted / discharged? Hospital course, mention meds given and route , prescriptions, significant lab abnormalities, going to OR and other pertinent info. @ -Upon arrival patient seen and evaluated in bed 8. Thorough history and physical exam was performed. IV was established and laboratory studies are conducted. CT was performed. Results are discussed with patient. Results are also discussed with Dr. Trujillo. Patient feels comfortable with her workup and will be discharged home at this time. She be given a prescription for a few Tylenol 3's. She has a follow-up appointment with Dr. Ortega on Friday. She is instructed to return for any new or worsening symptoms. Patient agreeable plan was discharged in stable condition Undiagnosed new problem with uncertain prognosis? @ -No Drug Therapy requiring intensive monitoring for toxicity (Heparin, Nitro, Insulin, Cardizem)? @ -No Were any procedures done? @ -No Diagnosis/symptom? @ -Acute abdominal wall pain status postcholecystectomy Acute, or Chronic, or Acute on Chronic? @ -Acute Uncomplicated (without systemic symptoms) or Complicated (systemic symptoms)? @ -Complicated Side effects of treatment? @ -No Exacerbation, Progression, or Severe Exacerbation? @ -No Poses a threat to life or bodily function? How? (Chest pain, [place], [place], pneumonia, PE, COPD, DKA, ARF, appy, cholecystitis, CVA, Diverticulitis, Homicidal, Suicidal, threat to staff... and all critical care pts) @ -No - Lab Data Result diagrams: 07/28/24 20:59 07/28/24 20:59 Lab Results 07/28/24 07/28/24 07/28/24 Range/Units 20:59 20:59 20:59 WBC 7.19 (4.50-10.00) 10*3/uL RBC 5.17 (4.10-5.20) 10*6/uL Hgb 10.7 L (12.0-15.0) g/dL Hct 32.8 L (37.2-46.3) % MCV 63.4 L (80.0-97.0) fL MCH 20.7 L (27.0-32.0) pg MCHC 32.6 (32.0-37.0) g/dL Plt Count 454 H (140-440) 10*3/uL Immature Gran % (Auto) 0.1 % Neutrophils % 47.3 % Lymphocytes % 35.3 % Monocytes % 12.1 % Eosinophils % 3.8 % Basophils % 1.4 % Immature Gran # 0.01 (0.00-0.04) 10*3/uL Neutrophils # 3.40 (1.80-7.70) 10*3/uL Lymphocytes # 2.54 (0.90-5.00) 10*3/uL Monocytes # 0.87 (0.20-1.00) 10*3/uL Eosinophils # 0.27 (0.04-0.35) 10*3/uL Basophils # 0.10 (0.00-0.10) 10*3/uL Manual Slide Review Performed Large Platelets Present Polychromasia Present Target Cells Present Ovalocytes Present Sodium 138 (137-145) mmol/L Potassium 4.1 (3.5-5.1) mmol/L Chloride 103 (98-107) mmol/L Carbon Dioxide 23 (22-30) mmol/L Anion Gap 12 mmol/L BUN 8 (7-17) mg/dL Creatinine 0.48 L (0.52-1.04) mg/dL Est GFR (CKD-EPI)AfAm >90 (>60 ml/min/1.73 sqM) Est GFR (CKD-EPI)NonAf >90 (>60 ml/min/1.73 sqM) Glucose 238 H (74-99) mg/dL Lactic Ac Sepsis Rflx Plasma Lactic Acid Guerre[place] 2.5 H* (0.7-2.0) mmol/L Calcium 9.6 (8.4-10.2) mg/dL Total Bilirubin 0.8 (0.2-1.3) mg/dL AST 63 H (14-36) U/L ALT 58 H (4-34) U/L Alkaline Phosphatase 115 (38-126) U/L Total Protein 7.7 (6.3-8.2) g/dL Albumin 4.7 (3.5-5.0) g/dL Lipase 65 (23-300) U/L Urine Color Urine Appearance (Clear) Urine pH (5.0-8.0) Ur Specific [place] (1.001-1.035) Urine Protein (Negative) Urine Glucose (UA) (Negative) Urine Ketones (Negative) Urine Blood (Negative) Urine Nitrite (Negative) Urine Bilirubin (Negative) Urine Urobilinogen (<2.0) mg/dL Ur Leukocyte Esterase (Negative) Urine RBC (0-5) /hpf Urine WBC (0-5) /hpf Ur Squamous Epith Cells (0-4) /hpf Urine Mucus (None) /hpf 07/28/24 07/28/24 07/28/24 Range/Units 21:18 21:37 23:28 WBC (4.50-10.00) 10*3/uL RBC (4.10-5.20) 10*6/uL Hgb (12.0-15.0) g/dL Hct (37.2-46.3) % MCV (80.0-97.0) fL MCH (27.0-32.0) pg MCHC (32.0-37.0) g/dL Plt Count (140-440) 10*3/uL Immature Gran % (Auto) % Neutrophils % % Lymphocytes % % Monocytes % % Eosinophils % % Basophils % % Immature Gran # (0.00-0.04) 10*3/uL Neutrophils # (1.80-7.70) 10*3/uL Lymphocytes # (0.90-5.00) 10*3/uL Monocytes # (0.20-1.00) 10*3/uL Eosinophils # (0.04-0.35) 10*3/uL Basophils # (0.00-0.10) 10*3/uL Manual Slide Review Large Platelets Polychromasia Target Cells Ovalocytes Sodium (137-145) mmol/L Potassium (3.5-5.1) mmol/L Chloride (98-107) mmol/L Carbon Dioxide (22-30) mmol/L Anion Gap mmol/L BUN (7-17) mg/dL Creatinine (0.52-1.04) mg/dL Est GFR (CKD-EPI)AfAm (>60 ml/min/1.73 sqM) Est GFR (CKD-EPI)NonAf (>60 ml/min/1.73 sqM) Glucose (74-99) mg/dL Lactic Ac Sepsis Rflx Y Plasma Lactic Acid [place] 1.5 (0.7-2.0) mmol/L Calcium (8.4-10.2) mg/dL Total Bilirubin (0.2-1.3) mg/dL AST (14-36) U/L ALT (4-34) U/L Alkaline Phosphatase (38-126) U/L Total Protein (6.3-8.2) g/dL Albumin (3.5-5.0) g/dL Lipase (23-300) U/L Urine Color Colorless Urine Appearance Clear (Clear) Urine pH 5.5 (5.0-8.0) Ur Specific [place] 1.017 (1.001-1.035) Urine Protein Negative (Negative) Urine Glucose (UA) Negative (Negative) Urine Ketones Negative (Negative) Urine Blood Negative (Negative) Urine Nitrite Negative (Negative) Urine Bilirubin Negative (Negative) Urine Urobilinogen <2.0 (<2.0) mg/dL Ur Leukocyte Esterase Large H (Negative) Urine RBC 4 (0-5) /hpf Urine WBC 51 H (0-5) /hpf Ur Squamous Epith Cells 1 (0-4) /hpf Urine Mucus Rare H (None) /hpf Disposition Clinical Impression: Abdominal pain Disposition: HOME SELF-CARE Condition: Stable Instructions (If sedation given, give patient instructions): Abdominal Pain (ED) Additional Instructions: Please follow-up with the surgeon your scheduled appointment. Take the Tylenol threes for pain and return for any new or worsening symptoms Prescriptions: Acetaminophen-Codeine 300-30mg [Tylenol w/codeine #3] 1 tab PO Q4H PRN 3 Days #18 tablet PRN Reason: Pain Is patient prescribed a controlled substance at d/c from ED?: Yes When asked, does pt state using other controlled substances?: No If prescribed controlled substance>3 days was MAPS reviewed?: Prescribed <3 Days If opioid is for acute pain is fill amount 7 days or less?: Yes Referrals: Thom Monroy MD [Primary Care Provider] - 1-2 days Michi Trujillo DO [Doctor of Osteopathic Medicine] - 1-2 days Time of Disposition: 23:59
[2024-07-29] MEDS: ACET/COD 300 MG/30 MG STARTER PACK 6 TAB BTL PO STA (00:05)
[2024-07-29 00:09] VITALS: BP 153/86; PULSE 65; RESP 17; TEMP 98
== END 2024-07-29 00:12 | disposition home or self-care (01) ==
LOC: EC 20:10
DX: K57.30 Diverticulosis of large intestine without perforation or abscess without bleeding (principal); K91.5 Postcholecystectomy syndrome; Z87.891 Personal history of nicotine dependence; Z88.0 Allergy status to penicillin
CPT/HCPCS: 99284; 96360; 36415; 80053; 83605; 83690; 85025; 81001; 74177; Q9967